=== PATIENT | female | born 1965 | race Caucasian/White ===

== ENCOUNTER 2017-10-26 20:11 | Emergency (ER) | payer MEDICARE ==
[~2017-10-26] VITALS: Ht 157.5 cm; Wt 131.1 kg
[~2017-10-26 20:11] MED LIST: ALB0.5 INH; ALB18R INH; AMO875 PO; AMOX-559 PO; ASPI81TA94 PO; CYC10 PO; CYCL10TA29 PO; DIA5 PO; DULO60CA51 PO; DULO60CA56 PO; ESTR1.2525 PO; FLUT1DIS27 IH; GAB800PT PO; GABA-503 PO; GABA25PO16 MC; GUAI600T57 PO; HYDR-2966 PO; HYDR-4225 PO; KET10 PO; MIRT-1 PO; MIRT-18 PO; ONDA4TAB PO; PRED-1 PO; TOPI15CA18 PO; TRA50 PO; TRAM-420 PO; VENL75CA58 PO; [UNRECOGNIZED DRUG - CODE] PO
--- NOTE | 2017-10-26 20:31 | ER Report ---
History and Physical Time Seen By MD: 20:10 Hx. of Stated Complaint: PT HAS FLU GOING AROUND HOUSE. PT IS SOB. HPI/ROS CHIEF COMPLAINT: Influenza-like illness HISTORY OF PRESENT ILLNESS: 52-year-old female denies past cardiac history presents with chest pain and tenderness productive cough shortness of breath hypoxia and vomiting reports at home that she has multiple influenza B exposures with multiple sick family members no known strep exposure has needed anything in 3 days feels weak and tired and lightheaded unable to drive herself to the hospital. Just starting to get a sore throat. REVIEW OF SYSTEMS: Constitutional: No fever, no chills. Eyes: No discharge. ENT: Copious drainage noted your pain Cardiovascular: No chest pressure or exertional chest pain no palpitations. Respiratory: No wheezing or respiratory distress or difficulty moving air Gastrointestinal: No abdominal pain, no diarrhea Genitourinary: No hematuria. Musculoskeletal: No neck back or extremity pain described Skin: No rashes. Neurological: No no weakness numbness or strokelike symptoms Allergies: Coded Allergies: codeine (Verified Allergy, Severe, ANAPHYLAXIS, 10/26/17) acetaminophen (Verified Allergy, Mild, AIRWAY OBSTRUCTION, 10/26/17) oxycodone (Verified Allergy, Mild, AIRWAY OBSTRUCTION, 10/26/17) Home Meds Active Scripts Ketorolac Tromethamine (KETOROLAC TROMETHAMINE) 10 Mg Tab, 10 MG PO Q6H Y for PAIN, #12 TAB 0 Refills Prov:ALEX MAYA MD 11/25/16 Tramadol Hcl (TRAMADOL HCL) 50 Mg Tablet, 1-2 MG PO Q6H Y for PAIN, #30 TAB Prov:ADAM THRASHER DO 06/22/16 Reported Medications Hydrochlorothiazide (HYDROCHLOROTHIAZIDE) 25 Mg Tablet, 1 TAB PO QDAY, TAB 06/18/17 Venlafaxine Hcl (EFFEXOR XR) 75 Mg Cap.er.24h, 75 MG PO TID 11/25/16 Hydroxyzine Hcl (HYDROXYZINE HCL) 25 Mg Tablet, 25 MG PO QID 11/25/16 Mirtazapine (REMERON) 15 Mg Tablet, 45 MG PO QHS 06/22/16 Gabapentin (GABAPENTIN) 600 Mg Tablet, 600 MG PO TID, #9 MG 0 Refills TAKE ONE CAPSULE BY MOUTH THREE TIMES A DAY 10/05/13 Cyclobenzaprine Hcl (Flexeril) 10 Mg Tab, 10 MG PO BID, 0 Refills 09/29/09 Discontinued Reported Medications Albuterol Sulfate (VENTOLIN HFA) 18 Gm Inh, 1-2 PUFF INH 3-4XD, INH 11/25/16 Fluticasone/Salmeterol (ADVAIR 100-50 DISKUS) 1 Each Disk.w.dev, 1 EACH IH 11/25/16 Topiramate (TOPAMAX) 15 Mg Cap.sprink, 15 MG PO BID 06/22/16 Discontinued Scripts Ketorolac Tromethamine (KETOROLAC TROMETHAMINE) 10 Mg Tab, 10 MG PO Q6H Y for PAIN, #12 TAB 0 Refills Prov:ALEX MAYA MD 06/18/17 Cyclobenzaprine Hcl (CYCLOBENZAPRINE HCL) 10 Mg Tablet, 10 MG PO Q8H Y for MUSCLE SPASMS, #20 TAB 0 Refills Prov:ALEX MAYA MD 06/18/17 Ondansetron (ZOFRAN ODT) 4 Mg Tab.rapdis, 4 MG PO Q6H Y for NAUSEA/VOMITING, # 20 TAB.MALLIKA 0 Refills Prov:ALEX MAYA MD 11/25/16 Hx Smoking: Yes Smoking Status: Current: Every Day Smoker Exposure to Second Hand Smoke?: No Hx Substance Use Disorder: No Hx Alcohol Use: Yes Constitutional Vital Sign - Last 24 Hours 10/26/17 10/26/17 20:17 21:11 Temp 99.3 Pulse 92 78 Resp 20 B/P (MAP) 120/68 Pulse Ox 85 95 O2 Delivery Room Air Medical Decision Making Data Points Result Diagram: 10/26/17210910/26/172109 Laboratory Hematology Test 10/26/17 21:10 10/26/17 21:20 10/26/17 21:25 Red Blood Count 4.76 M/uL (4.17-5.56) Mean Corpuscular Volume 92.4 fL (80.0-96.0) Mean Corpuscular Hemoglobin 31.8 pg (26.0-33.0) Mean Corpuscular Hemoglobin Concent 34.4 g/dL (32.0-36.0) Red Cell Distribution Width 13.5 % (11.5-14.5) Mean Platelet Volume 8.8 fL (7.2-11.1) Neutrophils (%) (Auto) 65.9 % (39.4-72.5) Lymphocytes (%) (Auto) 24.1 % (17.6-49.6) Monocytes (%) (Auto) 9.1 % (4.1-12.4) Eosinophils (%) (Auto) 0.2 % (0.4-6.7) Basophils (%) (Auto) 0.7 % (0.3-1.4) Nucleated RBC Relative Count (auto) 0.0 /100WBC Neutrophils # (Auto) 4.1 K/uL (2.0-7.4) Lymphocytes # (Auto) 1.5 K/uL (1.3-3.6) Monocytes # (Auto) 0.6 K/uL (0.3-1.0) Eosinophils # (Auto) 0.0 K/uL (0.0-0.5) Basophils # (Auto) 0.0 K/uL (0.0-0.1) Nucleated RBC Absolute Count (auto) 0.00 K/uL Sodium Level 137 mmol/L (137-145) Potassium Level 3.8 mmol/L (3.5-5.0) Chloride Level 102 mmol/L (98-107) Carbon Dioxide Level 24 mmol/L (22-31) Blood Urea Nitrogen 9 mg/dl (7-18) Creatinine 0.80 mg/dl (0.52-1.04) Glomerular Filtration Rate Calc > 60.0 Random Glucose 100 mg/dl (75-110) Calcium Level 8.3 mg/dl (8.4-10.2) Total Bilirubin 0.5 mg/dl (0.2-1.3) Aspartate Amino Transf (AST/SGOT) 33 U/L (0-35) Alanine Aminotransferase (ALT/SGPT) 38 U/L (0-56) Alkaline Phosphatase 73 U/L (0-126) Troponin I < 0.012 ng/ml B-Type Natriuretic Peptide 7 pg/ml (0-100) Total Protein 7.3 gm/dl (6.3-8.2) Albumin 3.8 g/dl (3.5-5.0) Lipase 65 U/L (23-300) Influenza Type A Antigen Negative (NEGATIVE) Influenza Type B Antigen Positive (NEGATIVE) Group A Streptococcus Screen Negative (NEGATIVE) Urine Color Felicia Urine Clarity Slightly-cloudy Urine pH 5.0 pH (4.8-9.5) Urine Specific [place] 1.025 Urine Protein Negative mg/dL (NEGATIVE) Urine Glucose (UA) Negative mg/dL (NEGATIVE) Urine Ketones Trace mg/dL (NEGATIVE) Urine Blood Negative (NEGATIVE) Urine Nitrite Negative (NEGATIVE) Urine Bilirubin Negative (NEGATIVE) Urine Urobilinogen 2.0 mg/dL (0.2-1.9) Urine Leukocyte Esterase Negative (NEGATIVE) Urine RBC 1 /HPF (0-2/HPF) Urine WBC 1 /HPF (0-5/HPF) Urine Squamous Epithelial Cells Many /LPF (</=FEW) Urine Bacteria Moderate /HPF (NONE-FEW) Urine Mucus Few /HPF (NONE-FEW) Chemistry Test 10/26/17 21:10 10/26/17 21:20 10/26/17 21:25 White Blood Count 6.2 k/uL (4.5-11.0) Red Blood Count 4.76 M/uL (4.17-5.56) Hemoglobin 15.1 g/dL (12.0-16.0) Hematocrit 44.0 % (34.0-47.0) Mean Corpuscular Volume 92.4 fL (80.0-96.0) Mean Corpuscular Hemoglobin 31.8 pg (26.0-33.0) Mean Corpuscular Hemoglobin Concent 34.4 g/dL (32.0-36.0) Red Cell Distribution Width 13.5 % (11.5-14.5) Platelet Count 139 K/uL (150-450) Mean Platelet Volume 8.8 fL (7.2-11.1) Neutrophils (%) (Auto) 65.9 % (39.4-72.5) Lymphocytes (%) (Auto) 24.1 % (17.6-49.6) Monocytes (%) (Auto) 9.1 % (4.1-12.4) Eosinophils (%) (Auto) 0.2 % (0.4-6.7) Basophils (%) (Auto) 0.7 % (0.3-1.4) Nucleated RBC Relative Count (auto) 0.0 /100WBC Neutrophils # (Auto) 4.1 K/uL (2.0-7.4) Lymphocytes # (Auto) 1.5 K/uL (1.3-3.6) Monocytes # (Auto) 0.6 K/uL (0.3-1.0) Eosinophils # (Auto) 0.0 K/uL (0.0-0.5) Basophils # (Auto) 0.0 K/uL (0.0-0.1) Nucleated RBC Absolute Count (auto) 0.00 K/uL Glomerular Filtration Rate Calc > 60.0 Calcium Level 8.3 mg/dl (8.4-10.2) Total Bilirubin 0.5 mg/dl (0.2-1.3) Aspartate Amino Transf (AST/SGOT) 33 U/L (0-35) Alanine Aminotransferase (ALT/SGPT) 38 U/L (0-56) Alkaline Phosphatase 73 U/L (0-126) Troponin I < 0.012 ng/ml B-Type Natriuretic Peptide 7 pg/ml (0-100) Total Protein 7.3 gm/dl (6.3-8.2) Albumin 3.8 g/dl (3.5-5.0) Lipase 65 U/L (23-300) Influenza Type A Antigen Negative (NEGATIVE) Influenza Type B Antigen Positive (NEGATIVE) Group A Streptococcus Screen Negative (NEGATIVE) Urine Color Felicia Urine Clarity Slightly-cloudy Urine pH 5.0 pH (4.8-9.5) Urine Specific [place] 1.025 Urine Protein Negative mg/dL (NEGATIVE) Urine Glucose (UA) Negative mg/dL (NEGATIVE) Urine Ketones Trace mg/dL (NEGATIVE) Urine Blood Negative (NEGATIVE) Urine Nitrite Negative (NEGATIVE) Urine Bilirubin Negative (NEGATIVE) Urine Urobilinogen 2.0 mg/dL (0.2-1.9) Urine Leukocyte Esterase Negative (NEGATIVE) Urine RBC 1 /HPF (0-2/HPF) Urine WBC 1 /HPF (0-5/HPF) Urine Squamous Epithelial Cells Many /LPF (</=FEW) Urine Bacteria Moderate /HPF (NONE-FEW) Urine Mucus Few /HPF (NONE-FEW) Urinalysis Test 10/26/17 21:25 Urine Color Felicia Urine Clarity Slightly-cloudy Urine pH 5.0 pH (4.8-9.5) Urine Specific [place] 1.025 Urine Protein Negative mg/dL (NEGATIVE) Urine Glucose (UA) Negative mg/dL (NEGATIVE) Urine Ketones Trace mg/dL (NEGATIVE) Urine Blood Negative (NEGATIVE) Urine Nitrite Negative (NEGATIVE) Urine Bilirubin Negative (NEGATIVE) Urine Urobilinogen 2.0 mg/dL (0.2-1.9) Urine Leukocyte Esterase Negative (NEGATIVE) Urine RBC 1 /HPF (0-2/HPF) Urine WBC 1 /HPF (0-5/HPF) Urine Squamous Epithelial Cells Many /LPF (</=FEW) Urine Bacteria Moderate /HPF (NONE-FEW) Urine Mucus Few /HPF (NONE-FEW) EKG/Imaging EKG Interpretation EKG read by me at 8:50 PM Normal sinus rhythm rate of 79 normal AR QRS and QTc intervals no ST or T-wave changes to suggest ischemia or infarction. Overall impression: Normal inter fold roll cutter Interpretation: Normal Sinus Rhythm ED Course/Re-evaluation ED Course Plan of care was discussed and agreed upon given patient's constellation of symptoms will obtain EKG chest x-ray lab work influenza and strep screening in addition to symptomatic control with pain medicine fluids and nausea medicine. 10/26/2017 11:16:35 pm symptoms improved. I discussed the case with Dr. Lassiter who agrees with management and plan for outpatient care. Patient does not require hospitalization at this time. Slight hypoxia should be tolerated well and improved as underlying processes treated. Re-evaluation 10/26/2017 11:16:16 pm Improved borderline hypoxia off oxygen however improves with a few deep breaths. Decision to Disposition Date: Oct 26, 2017 Decision to Disposition Time: 23:17 Depart Departure Latest Vital Signs Vital Signs Date Time Temp Pulse Resp B/P (MAP) Pulse Ox O2 Delivery O2 Flow Rate FiO2 10/26/17 21:11 78 95 10/26/17 20:17 99.3 20 120/68 Room Air Impression: Primary Impression: Influenza B Condition: Improved Disposition: HOME OR SELF-CARE New Scripts Diclofenac Sodium (DICLOFENAC SODIUM) 25 Mg Tablet.dr 25 MG PO TID for 10 Days, TAB Prov: JULIAN RAMIREZ MD 10/26/17 Oseltamivir Phosphate (TAMIFLU) 75 Mg Cap 75 MG PO BID for 5 Days, #10 CAP 0 Refills Prov: JULIAN RAMIREZ MD 10/26/17 Ondansetron (ZOFRAN ODT) 4 Mg Tab.rapdis 4 MG PO Q12H, #20 TAB.MALLIKA Prov: JULIAN RAMIREZ MD 10/26/17 Patient Instructions: H1N1 Influenza (ED) JULIAN RAMIREZ MD Oct 26, 2017 20:31
[2017-10-26] MEDS ORDERED: MORPHINE 4 MG/ML SYR IVP ONE (20:40)
[2017-10-26] MEDS ORDERED: ONDANSETRON 4 MG/2 ML VIAL IVP ONE ×2 (20:40→22:50)
[2017-10-26] MEDS ORDERED: NS(*) 0.9% 1000 ML BAG 1,000 ML IV ONE (20:50)
[2017-10-26 21:22] LABS: PLATELET COUNT, AUTOMATED 139 K/uL (150-450)
--- NOTE | 2017-10-26 22:06 | RADIOLOGY IMAGING REPORT ---
FACILITY: [facility] [place] PATIENT NAME: Yolanda Olivia : 1965 MR: [id number] V: [id number] EXAM DATE: ORDERING PHYSICIAN: JULIAN RAMIREZ TECHNOLOGIST: Location: [facility] [place] Patient: Yolanda Olivia : 1965 Visit/Account:[id number] Date of Sevice: 10/26/2017 CHEST PA AND LAT History: Right-sided pneumonia Comparison 02/10/2016. FINDINGS: Coarse interstitial lung markings similar to previous. No focal consolidation or effusion. No pneumot horax. Cardiac mediastinal contour within normal limits. IMPRESSION: No evidence of acute cardiopulmonary disease. Report Dictated By: Kishor Robbins MD at 10/26/2017 9:57 PM Report E-Signed By: Kishor Robbins MD at 10/26/2017 10:02 PM WSN:[id number]
[2017-10-26] MEDS ORDERED: KETOROLAC 30 MG/ML VIAL IVP ONE (22:50)
[2017-10-26 23:00] VITALS: BP 121/71
[2017-10-26] MEDS ORDERED: OSE75 PO (23:31)
[2017-10-26] MEDS ORDERED: DICL25TA9 PO (23:31)
[2017-10-26] MEDS ORDERED: ONDA4TAB PO (23:31)
--- NOTE | 2017-10-27 02:42 | EKG ---
FACILITY: [facility] PATIENT NAME: WILFREDO IZQUIERDO : [id number] MR: [id number] V: [id number] EXAM DATE: ORDERING PHYSICIAN: JULIAN RAMIREZ TECHNOLOGIST: FREDY Test Reason : ABDOMINAL PAIN Blood Pressure : / mmHG Vent. Rate : 079 BPM Atrial Rate : 079 BPM P-R Int : 114 ms QRS Dur : 082 ms QT Int : 388 ms P-R-T Axes : 057 035 053 degrees QTc Int : 444 ms Normal sinus rhythm Normal ECG When compared with ECG of 25-MAY-2013 05:51, No significant change was found Confirmed by TAWNY FRAUSTO ([id number]) on 10/28/2017 3:02:56 PM Referred By: Confirmed By:TAWNY FRAUSTO
== END 2017-10-26 23:41 | disposition home or self-care (01) ==
LOC: ER 20:27
DX: J11.1 Influenza due to unidentified influenza virus with other respiratory manifestations (principal)
CPT/HCPCS: 71020; 81001; 83690; 83880; 84484; 85025; 87040; 87081; 87502; 87880; 93005; 96361; 96374; 96375; 96376; 99284; J1885; J2270; J2405; J7030; 82040; 82247; 82310; 82374; 82435; 82565; 82947; 84075; 84132; 84155; 84295; 84450; 84460; 84520

== ENCOUNTER 2017-10-30 18:35 | Emergency (ER) | payer MEDICARE ==
[~2017-10-30] VITALS: Ht 157.5 cm; Wt 131.1 kg
[~2017-10-30 18:35] MED LIST changes: +DICL25TA9 PO; +OSE75 PO
--- NOTE | 2017-10-30 18:46 | ER Report ---
History and Physical Time Seen By MD: 18:46 HPI/ROS CHIEF COMPLAINT: can't breath, vomiting HISTORY OF PRESENT ILLNESS: This is a 52 year old female. She was here in the ER on the and diagnosed with influenza. Since then she has been having ongoing problem with feeling short of breath. Worse with laying flat. She has significant post nasal drainage, and this makes here gag, cough and then vomit. She is using Zofran, but not helping with the vomiting. She continues to cough. Ongoing fevers. Taking Robitussin and Alkaseltzer cold without relief. Chest feels tight, worse in substernal left area. Can drink fluids, but cannot eat without throwing up. REVIEW OF SYSTEMS: Constitutional: As above. ENT: Sore throat and congestion. Cardiovascular: As above. Respiratory: As above. Gastrointestinal: Some abdominal muscle pain from coughing so much. Genitourinary: No dysuria or problems urinating. Musculoskeletal: Muscle aches. Skin: No rashes. Allergies: Coded Allergies: codeine (Verified Allergy, Severe, ANAPHYLAXIS, 10/30/17) acetaminophen (Verified Allergy, Mild, AIRWAY OBSTRUCTION, 10/30/17) oxycodone (Verified Allergy, Mild, AIRWAY OBSTRUCTION, 10/30/17) Home Meds Active Scripts Tramadol Hcl (TRAMADOL HCL) 50 Mg Tablet, 50 MG PO Q6H Y for PAIN, #12 TAB 0 Refills Prov:CAS TAPIA MD 10/30/17 Benzonatate 100 Mg Cap (TESSALON PERLE 100 MG CAP) 100 Mg Capsule, 100 MG PO TID Y for COUGH, #15 CAP 0 Refills Prov:CAS TAPIA MD 10/30/17 Diclofenac Sodium (DICLOFENAC SODIUM) 25 Mg Tablet.dr, 25 MG PO TID for 10 Days , TAB Prov:JULIAN RAMIREZ MD 10/26/17 Oseltamivir Phosphate (TAMIFLU) 75 Mg Cap, 75 MG PO BID for 5 Days, #10 CAP 0 Refills Prov:JULIAN RAMIREZ MD 10/26/17 Ondansetron (ZOFRAN ODT) 4 Mg Tab.rapdis, 4 MG PO Q12H, #20 TAB.MALLIKA Prov:JULIAN RAMIREZ MD 10/26/17 Ketorolac Tromethamine (KETOROLAC TROMETHAMINE) 10 Mg Tab, 10 MG PO Q6H Y for PAIN, #12 TAB 0 Refills Prov:CAS TAPIA MD 11/25/16 Reported Medications Hydrochlorothiazide (HYDROCHLOROTHIAZIDE) 25 Mg Tablet, 1 TAB PO QDAY, TAB 06/18/17 Venlafaxine Hcl (EFFEXOR XR) 75 Mg Cap.er.24h, 75 MG PO TID 11/25/16 Hydroxyzine Hcl (HYDROXYZINE HCL) 25 Mg Tablet, 25 MG PO QID 11/25/16 Mirtazapine (REMERON) 15 Mg Tablet, 45 MG PO QHS 06/22/16 Gabapentin (GABAPENTIN) 600 Mg Tablet, 600 MG PO TID, #9 MG 0 Refills TAKE ONE CAPSULE BY MOUTH THREE TIMES A DAY 10/05/13 Cyclobenzaprine Hcl (Flexeril) 10 Mg Tab, 10 MG PO BID, 0 Refills 09/29/09 Discontinued Reported Medications Albuterol Sulfate (VENTOLIN HFA) 18 Gm Inh, 1-2 PUFF INH 3-4XD, INH 11/25/16 Fluticasone/Salmeterol (ADVAIR 100-50 DISKUS) 1 Each Disk.w.dev, 1 EACH IH 11/25/16 Topiramate (TOPAMAX) 15 Mg Cap.sprink, 15 MG PO BID 06/22/16 Discontinued Scripts Tramadol Hcl (TRAMADOL HCL) 50 Mg Tablet, 1-2 MG PO Q6H Y for PAIN, #30 TAB Prov:ADAM THRASHER DO 06/22/16 Ketorolac Tromethamine (KETOROLAC TROMETHAMINE) 10 Mg Tab, 10 MG PO Q6H Y for PAIN, #12 TAB 0 Refills Prov:CAS TAPIA MD 06/18/17 Cyclobenzaprine Hcl (CYCLOBENZAPRINE HCL) 10 Mg Tablet, 10 MG PO Q8H Y for MUSCLE SPASMS, #20 TAB 0 Refills Prov:CAS TAPIA MD 06/18/17 Ondansetron (ZOFRAN ODT) 4 Mg Tab.rapdis, 4 MG PO Q6H Y for NAUSEA/VOMITING, # 20 TAB.MALLIKA 0 Refills Prov:CAS TAPIA MD 11/25/16 Reviewed Nurses Notes: Yes Hx Smoking: Yes Smoking Status: Current: Every Day Smoker Exposure to Second Hand Smoke?: No Hx Substance Use Disorder: No Hx Alcohol Use: Yes Constitutional Vital Sign - Last 24 Hours 10/30/17 10/30/17 10/30/17 10/30/17 18:45 18:45 18:45 18:48 Temp 100.3 Pulse 90 88 Resp 0 22 B/P (MAP) 115/105 (108) 115/105 126/71 (89) Pulse Ox 94 83 O2 Delivery Room Air O2 Flow Rate 2.0 10/30/17 10/30/17 10/30/17 10/30/17 19:00 19:15 19:20 19:20 Pulse 84 78 71 Resp 48 28 16 Pulse Ox 93 92 94 O2 Delivery Nasal Cannula O2 Flow Rate 1.5 10/30/17 10/30/17 10/30/17 10/30/17 19:26 19:30 20:00 20:31 Pulse 73 79 77 Resp 16 24 41 B/P (MAP) 113/53 (73) 111/70 (84) Pulse Ox 89 Physical Exam General Appearance: The patient is alert. Acute distress due to coughing and post-tussive emesis. Non-toxic in appearance. Eyes: Pupils are equal, round. No pallor, injection or icterus. ENT: Mucous membranes are moist. Normal oral mucosa. Posterior oropharynx has significant post-nasal drainage. Significant mucous in the nasal passages. Neck: Supple and non tender. Respiratory: Lungs are clear to auscultation. Cardiovascular: Regular rate and rhythm. No murmurs, gallops or rubs. Normal capillary refill. Gastrointestinal: Abdomen is soft, has some tenderness upper abdomen and ribs from coughing so much. Nondistended. Normal active bowel sounds. No CVA tenderness. Neurological: Alert and oriented x3. DIFFERENTIAL DIAGNOSIS: After history and physical exam, differential diagnosis was considered for cough and trouble breathing, likely from the influenza, but will check for other causes, especially need to look for possible pneumonia. Medical Decision Making Data Points Result Diagram: 10/30/17190510/30/171905 Laboratory Hematology Test 10/30/17 19:06 Red Blood Count 4.45 M/uL (4.17-5.56) Mean Corpuscular Volume 91.2 fL (80.0-96.0) Mean Corpuscular Hemoglobin 31.6 pg (26.0-33.0) Mean Corpuscular Hemoglobin Concent 34.7 g/dL (32.0-36.0) Red Cell Distribution Width 13.3 % (11.5-14.5) Mean Platelet Volume 9.1 fL (7.2-11.1) Neutrophils (%) (Auto) 80.6 % (39.4-72.5) Lymphocytes (%) (Auto) 11.9 % (17.6-49.6) Monocytes (%) (Auto) 6.7 % (4.1-12.4) Eosinophils (%) (Auto) 0.2 % (0.4-6.7) Basophils (%) (Auto) 0.6 % (0.3-1.4) Nucleated RBC Relative Count (auto) 0.1 /100WBC Neutrophils # (Auto) 7.2 K/uL (2.0-7.4) Lymphocytes # (Auto) 1.1 K/uL (1.3-3.6) Monocytes # (Auto) 0.6 K/uL (0.3-1.0) Eosinophils # (Auto) 0.0 K/uL (0.0-0.5) Basophils # (Auto) 0.0 K/uL (0.0-0.1) Nucleated RBC Absolute Count (auto) 0.01 K/uL D-Dimer Quantitative (PE/DVT) 0.49 ug/ml (0-0.50) Sodium Level 139 mmol/L (137-145) Potassium Level 3.8 mmol/L (3.5-5.0) Chloride Level 104 mmol/L (98-107) Carbon Dioxide Level 25 mmol/L (22-31) Blood Urea Nitrogen 6 mg/dl (7-18) Creatinine 0.70 mg/dl (0.52-1.04) Glomerular Filtration Rate Calc > 60.0 Random Glucose 117 mg/dl (75-110) Calcium Level 8.4 mg/dl (8.4-10.2) Total Bilirubin 1.1 mg/dl (0.2-1.3) Aspartate Amino Transf (AST/SGOT) 16 U/L (0-35) Alanine Aminotransferase (ALT/SGPT) 31 U/L (0-56) Alkaline Phosphatase 88 U/L (0-126) Troponin I < 0.012 ng/ml B-Type Natriuretic Peptide 61 pg/ml (0-100) Total Protein 7.1 gm/dl (6.3-8.2) Albumin 3.5 g/dl (3.5-5.0) Chemistry Test 10/30/17 19:06 White Blood Count 8.9 k/uL (4.5-11.0) Red Blood Count 4.45 M/uL (4.17-5.56) Hemoglobin 14.1 g/dL (12.0-16.0) Hematocrit 40.6 % (34.0-47.0) Mean Corpuscular Volume 91.2 fL (80.0-96.0) Mean Corpuscular Hemoglobin 31.6 pg (26.0-33.0) Mean Corpuscular Hemoglobin Concent 34.7 g/dL (32.0-36.0) Red Cell Distribution Width 13.3 % (11.5-14.5) Platelet Count 145 K/uL (150-450) Mean Platelet Volume 9.1 fL (7.2-11.1) Neutrophils (%) (Auto) 80.6 % (39.4-72.5) Lymphocytes (%) (Auto) 11.9 % (17.6-49.6) Monocytes (%) (Auto) 6.7 % (4.1-12.4) Eosinophils (%) (Auto) 0.2 % (0.4-6.7) Basophils (%) (Auto) 0.6 % (0.3-1.4) Nucleated RBC Relative Count (auto) 0.1 /100WBC Neutrophils # (Auto) 7.2 K/uL (2.0-7.4) Lymphocytes # (Auto) 1.1 K/uL (1.3-3.6) Monocytes # (Auto) 0.6 K/uL (0.3-1.0) Eosinophils # (Auto) 0.0 K/uL (0.0-0.5) Basophils # (Auto) 0.0 K/uL (0.0-0.1) Nucleated RBC Absolute Count (auto) 0.01 K/uL D-Dimer Quantitative (PE/DVT) 0.49 ug/ml (0-0.50) Glomerular Filtration Rate Calc > 60.0 Calcium Level 8.4 mg/dl (8.4-10.2) Total Bilirubin 1.1 mg/dl (0.2-1.3) Aspartate Amino Transf (AST/SGOT) 16 U/L (0-35) Alanine Aminotransferase (ALT/SGPT) 31 U/L (0-56) Alkaline Phosphatase 88 U/L (0-126) Troponin I < 0.012 ng/ml B-Type Natriuretic Peptide 61 pg/ml (0-100) Total Protein 7.1 gm/dl (6.3-8.2) Albumin 3.5 g/dl (3.5-5.0) Coagulation Test 10/30/17 19:06 D-Dimer Quantitative (PE/DVT) 0.49 ug/ml EKG/Imaging EKG Interpretation 12 lead EKG: Rhythm: normal sinus rhythm [place]: normal QRS: normal ST segments: normal Imaging EXAMINATION: Chest 2 Views HISTORY: Respiratory distress. COMPARISON: 10/26/2017. FINDINGS: There is mild prominence of the perihilar interstitial markings bilaterally, improved from the prior exam. No focal consolidation or pleural effusion. No pneumothorax. Normal heart size, with stable cardiomediastinal contours. No acute osseous findings. Prior cervical spine surgery with plate and screw fixation. Cholecystectomy clips in the right upper abdomen. IMPRESSION: 1. Mild perihilar interstitial prominence, improved from the prior exam. 2. No focal consolidation. No new or progressive findings in the chest. Report Dictated By: Handy Banegas MD at 10/30/2017 8:01 PM ED Course/Re-evaluation Clinical Indication for ER IV: IV Access ED Course Solu-Medrol 125 mg IV was given, the patient was given a breathing treatment. She was then given Tessalon Perles and some tramadol to help with cough and pain. Imaging was negative for pneumonia. Labs unremarkable other than the influenza. This appears to be worsening symptoms from the influenza. She did have hypoxia requiring oxygen and we did arrange home oxygen. Otherwise she will continue symptomatic management. I did give a prescription for tramadol to help with pain and Tessalon Perles to help with cough. Decision to Disposition Date: Oct 30, 2017 Decision to Disposition Time: 21:08 Depart Departure Latest Vital Signs Vital Signs Date Time Temp Pulse Resp B/P (MAP) Pulse Ox O2 Delivery O2 Flow Rate FiO2 10/30/17 20:31 111/70 (84) 10/30/17 20:00 77 41 10/30/17 19:30 89 1/2/18 19:20 Nasal Cannula 1.5 10/30/17 18:45 100.3 Impression: Primary Impression: Influenza B Additional Impression: Hypoxia Condition: Improved Disposition: HOME OR SELF-CARE New Scripts Tramadol Hcl (TRAMADOL HCL) 50 Mg Tablet 50 MG PO Q6H Y for PAIN, #12 TAB 0 Refills Prov: CAS TAPIA MD 10/30/17 Benzonatate 100 Mg Cap (TESSALON PERLE 100 MG CAP) 100 Mg Capsule 100 MG PO TID Y for COUGH, #15 CAP 0 Refills Prov: CAS TAPIA MD 10/30/17 Departure Forms: Home Oxygen, Nebulizer RX Durable Medical Equipment- Oxygen: Oxygen Concentrator, Portable Oxygen Gas Reason for Use/Diagnosis: Influenza B, Hypoxia Start Date of the Order: Oct 30, 2017 Dosage or Concentration (if applicable) - LPM: 2 Route of Administration (if applicable): Nasal Cannula Frequency of Use: Continuous Duration Home O2 Required: 1 Duration Units: Months Room Air Oxygen Saturation: 83 ER Prescribing Physician's Name: Cas Tapia NPI Numbers for Local ER MDs: Willie [id number] Patient Instructions: Hypoxia (ED), Influenza (ED) Additional Instructions: Take Tessalon Perles 100mg, three times a day as needed for cough. Take Tramadol 50mg, one every 6 hours as needed for pain. Oxygen 2liters nasal canula Problem Qualifiers CAS TAPIA MD Oct 30, 2017 18:46
[2017-10-30] MEDS ORDERED: methylPREDNIS SUCC 125 MG/2ML IVP ONE (18:55)
[2017-10-30] MEDS ORDERED: ALBUTEROL/IPRATROPIUM 3 ML NEB NEB ONE (18:55)
[2017-10-30 19:17] LABS: PLATELET COUNT, AUTOMATED 145 K/uL (150-450)
--- NOTE | 2017-10-30 19:18 | EKG ---
FACILITY: [facility] PATIENT NAME: WILFREDO IZQUIERDO : [id number] MR: [id number] V: [id number] EXAM DATE: ORDERING PHYSICIAN: ALEX MAYA TECHNOLOGIST: Test Reason : Blood Pressure : / mmHG Vent. Rate : 083 BPM Atrial Rate : 083 BPM P-R Int : 116 ms QRS Dur : 082 ms QT Int : 374 ms P-R-T Axes : 035 018 038 degrees QTc Int : 439 ms Normal sinus rhythm Normal ECG When compared with ECG of 26-OCT-2017 20:48, No significant change was found Confirmed by YON BURLESON ([id number]) on 10/31/2017 2:01:20 AM Referred By: Confirmed By:YON BURLESON
[2017-10-30] MEDS ORDERED: traMADol 50 MG TAB PO ONE (19:20)
[2017-10-30] MEDS ORDERED: BENZONATATE 100 MG CAP PO ONE (19:20)
--- NOTE | 2017-10-30 20:05 | RADIOLOGY IMAGING REPORT ---
FACILITY: [facility] [place] PATIENT NAME: Yolanda Olivia : 1965 MR: [id number] V: [id number] EXAM DATE: ORDERING PHYSICIAN: ALEX MAYA TECHNOLOGIST: Location: [facility] Patient: Yolanda Olivia : 1965 Visit/Account:[id number] Date of Sevice: 10/30/2017 EXAMINATION: Chest 2 Views HISTORY: Respiratory distress. COMPARISON: 10/26/2017. FINDINGS: There is mild prominence of the perihilar interstitial markings bilaterally, improved from the prior exam. No focal consolidation or pleural effusion. No pneumothorax. Normal heart size, with stable cardiomediastinal contours. No acute osseous findings. Prior cervical spine surgery with plate and screw fixation. Cholecystectom y clips in the right upper abdomen. IMPRESSION: 1. Mild perihilar interstitial prominence, improved from the prior exam. 2. No focal consolidation. No new or progressive findings in the chest. Report Dictated By: Handy Banegas MD at 10/30/2017 8:01 PM Report E-Signed By: Handy Banegas MD at 10/30/2017 8:02 PM WSN:[id number]
[2017-10-30] MEDS ORDERED: BENZONATATE 100 MG CAP ONE (20:31)
[2017-10-30] MEDS ORDERED: BENZ100C4 PO (21:10)
[2017-10-30] MEDS ORDERED: TRAM-420 PO (21:10)
[2017-10-30 21:30] VITALS: BP 118/68
== END 2017-10-30 21:44 | disposition home or self-care (01) ==
LOC: ER 19:18
DX: J11.1 Influenza due to unidentified influenza virus with other respiratory manifestations (principal); R09.02 Hypoxemia
CPT/HCPCS: 36415; 71046; 83880; 84484; 85025; 85379; 87040; 93005; 94640; 96374; 99284; A9270; J2930; J7620; 82040; 82247; 82310; 82374; 82435; 82565; 82947; 84075; 84132; 84155; 84295; 84450; 84460; 84520

== ENCOUNTER → 2017-12-24 | Outpatient (CLI) | payer MEDICARE, MEDICAID ==
[~2017-12-24] MED LIST changes: +BENZ100C4 PO
--- NOTE | 2017-12-24 14:07 | RADIOLOGY IMAGING REPORT ---
FACILITY: [facility] PATIENT NAME: Yolanda Olivia : 1965 MR: [id number] V: [id number] EXAM DATE: ORDERING PHYSICIAN: OC PEREZ TECHNOLOGIST: Location: [facility] - [place] Patient: Yolanda Olivia : 1965 Visit/Account:[id number] Date of Sevice: 12/24/2017 Study: MRI lumbar spine without gadolinium contrast. Indication:Low back pain Comparison study: CT scan dated June 18, 2017 Technique:Multiplanar MRI sequences were obtained through the lumbar spine without the use of gadolin ium contrast. Findings: Examination demonstrates presence of a grade I anterolisthesis at the L3-4 level. This is u nchanged from the previous study. The conus medullaris is located posterior to the T12/L1 disc space level. There is no evidence of abnormality of the lumbar nerve roots. Disc spaces: L1/2:At this level, there is no significant disc pathology. There is no significant neural foraminal stenosis or spinal stenosis. L2/3:At this level, there is no significant disc pathology. There is no significant neural foraminal stenosis or spinal stenosis. L3/4: At this level, there is a grade I anterolisthesis. There is a diffuse disc bulge. There is face t and ligamentous hypertrophy. There is no significant spinal stenosis or neural foraminal stenosis n oted. L4/5: At this level, there is a minimal diffuse disc bulge. There is facet and ligamentous hypertroph y. There is no significant neural foraminal stenosis or spinal stenosis. L5/S1: At this level, there is a minimal diffuse disc bulge. There is facet and ligamentous hypertrop hy. There is no significant spinal stenosis. There is mild bilateral neural foraminal stenosis. IMPRESSION: Mild multilevel lumbar disc pathology and spondylopathy present as described. There is a grade I anterolisthesis at the L3-4 level. Please see the body of the report for description of individual disc levels. Report Dictated By: Richy Kovacs at 12/24/2017 1:45 PM Report E-Signed By: Richy Kovacs at 12/24/2017 2:03 PM WSN:[id number]
== END ==
LOC: MRI 07:29
PROVIDERS: ATTEND Family Medicine
DX: M48.16 Ankylosing hyperostosis [Forestier], lumbar region (principal); M43.16 Spondylolisthesis, lumbar region
CPT/HCPCS: 72148

== ENCOUNTER → 2017-12-26 | Outpatient (CLI) | payer MEDICARE, MEDICAID ==
--- NOTE | 2017-12-27 10:27 | RADIOLOGY IMAGING REPORT ---
FACILITY: [facility] - [place] PATIENT NAME: WILFREDO IZQUIERDO : [id number] MR: [id number] V: [id number] EXAM DATE: [id number] ORDERING PHYSICIAN: OC PEREZ TECHNOLOGIST: Melody Rivero PROCEDURE:BILATERAL DIAGNOSTIC DIGITAL MAMMOGRAM WITH CAD ASSISTED INTERPRETATION & 3D TOMOSYNTHESIS COMPARISON:Prior mammograms 04/16/17. INDICATIONS:6 MO F/U FINDINGS: There is predominate fatty replacement seen throughout the breasts. The parenchymal pattern has remained stable allowing for difference in mammographic technique & patient positioning. The ovoid nodular density in the upper outer quadrant of the Right breast has remained stable. Today's limited Right breast Ultrasound revealed several tiny cysts although no correlate for this nodular density. Due to the stability a 6 month follow-up Right mammogram is recommended unless clinical findings warrant more immediate attention. DIAGNOSTIC CATEGORY 3--PROBABLY BENIGN FINDING. RECOMMENDATIONS: SIX MONTH FOLLOW-UP DIAGNOSTIC MAMMOGRAM: RIGHT BREAST. IMPRESSION: BIRADS 3: Probably benign finding A 6 month follow-up Right mammogram is recommended as detailed above Dictated by: Merced Sexton M.D. on 12/26/2017 at 15:07 Transcribed by: SADE on 12/27/2017 at 8:47 Approved by: Merced Sexton M.D. on 12/27/2017 at 10:26 [facility]
--- NOTE | 2017-12-27 10:27 | RADIOLOGY IMAGING REPORT ---
FACILITY: [facility] PATIENT NAME: WILFREDO IZQUIERDO : [id number] MR: [id number] V: [id number] EXAM DATE: [id number] ORDERING PHYSICIAN: OC PEREZ TECHNOLOGIST: Gregorio Castano PROCEDURE:US RIGHT BREAST COMPARISON:None. INDICATIONS:6 MO F/U FINDINGS: There is a tiny 3mm cyst in the 9 o'clock position of the Right breast. This likely does not account for the ovoid nodule seen in the upper outer quadrant on the recent mammogram therefore a 6 month follow-up Right mammogram is recommended unless clinical findings warrant more immediate attention. DIAGNOSTIC CATEGORY 3--PROBABLY BENIGN FINDING. RECOMMENDATIONS: SIX MONTH FOLLOW-UP DIAGNOSTIC MAMMOGRAM: RIGHT BREAST. IMPRESSION: BIRADS 3: Probably benign finding A 6 month follow-up Right mammogram is recommended as detailed above Dictated by: Merced Sexton M.D. on 12/26/2017 at 15:07 Transcribed by: SADE on 12/27/2017 at 8:46 Approved by: Merced Sexton M.D. on 12/27/2017 at 10:26 [facility]
== END ==
LOC: RESP 02:21
PROVIDERS: ATTEND Family Medicine
DX: N60.01 Solitary cyst of right breast (principal); N63.11 Unspecified lump in the right breast, upper outer quadrant
CPT/HCPCS: 77062; 77066

== ENCOUNTER → 2017-12-27 | Outpatient (CLI) | payer MEDICARE | LOC: RESP 20:27 | PROVIDERS: ATTEND Family Medicine | DX: G47.33 Obstructive sleep apnea (adult) (pediatric) (principal); G47.61 Periodic limb movement disorder; G47.36 Sleep related hypoventilation in conditions classified elsewhere; E66.8 Other obesity ==

== ENCOUNTER 2018-01-14 09:31 | Outpatient (RCR) | payer MEDICARE, MEDICAID ==
[~2018-01-14] VITALS: Ht 157.5 cm; Wt 126.6 kg
--- NOTE | 2018-01-15 13:06 | Medical Nutrition Therapy ---
Nutrition Anthropometrics Height (Inches): 62 (stated) Weight (Pounds): 279 (279.5 on standing scale) Kirk Nutrition Score: Kirk Nutrition Risk Score: Dietary Referral Nutrition Risk Factors: Nutrition Risk Comment: Physical Findings Physical Appearance: Morbidly Obese 40+ (BMI 51) Skin Appearance Skin Appearance: Edema Edema Location Modifier: Edema Location: Type of Edema: Degree of Edema: Gastrointestinal Symptoms GI Symtoms: Tube Present: Bowel Sounds: Recent Bowel Pattern: Stool Characteristics: Nutrition/Food History Breakfast: coffee with cream, 1 sl toast, dionicio Lunch: cheese sandwich, diet soda Dinner: 1c spagetti & 2 meatbasll, 1/2 sl garlic toast, diet soda Snacks: 9saltine or ritz crakers ( with meds) Nutritional Education Nutrition Education Topic: Weight Loss Diet Learning Readiness: Interested Teaching Methods: Discussion, Handout, Demonstration Response to Teaching: Verbalize understanding, Reinforcement needed Teaching Recipient: Patient Nutrition Counseling: Late entry of 01/14: Pt has hx of gastic bypass surgery but has gained back 90#. Pt is considering re-doing bypass surgery but would like to start wt loss process. Pt has significant family hx of diabetes and current A1C of 5.6 which is on upper end of normal range. Pt reports hx of phychiatic problems and suicide attempts. Referral was made to [facility] and tech did talk with pt. [facility] tech stated pt was safe at this time. Pt is in counseling. Pt is on psych med that can contribute to wt gain. Recommend pt discuss meds with PCP to see if another med that doesn't contribut to wt gain may help her. 24 hr recall indicated pt ate ~ 1500 kcal on that day. This shoudl be a weight loss level for pt. However pt may have not reported all food intake or this may not be typical day. Recommend pt track food to see how many kcal she is consuming. Pt will use [employer]. Provided meal plan of ~ 1200 kcal. Discussed how larger portions may be playing a role. Recommend pt measure food to ensure she is documenting correct amounts. Recommend pt changed to lower kcal bread. Discussed glycemic index and encouraged higher fiber CHO. REcommend limiting CHO and bedtime and add high protein snack like belizean yogurt. Pt has financial restictions so discussed how to add lower cost and lower kcal high protein foods. Discussed exercise. Pt suraj has pain in back and can do limited exercises. Pt is disabled. Recommend swimming. [facility] if [facility] have a discount for disabled. Pt will f/u 2 weeks for weigh-in only and monthly for further MNT. Copies To Copies to: OC PEREZ MD, BETH Jan 15, 2018 13:06
[2018-01-28] MEDS ORDERED: GOLYTE PO (10:09)
[2018-01-28] MEDS ORDERED: FLUT1DIS27 IH (12:59)
[2018-01-28] MEDS ORDERED: HYDR-2966 PO (12:59)
[2018-01-28] MEDS ORDERED: ASPI-1471 PO (12:59)
[2018-01-28] MEDS ORDERED: OMEP40CA48 PO (12:59)
[2018-01-28] MEDS ORDERED: SIMV10TA96 PO (12:59)
[2018-01-28] MEDS ORDERED: ALBU8.5H IH (12:59)
[2018-01-29] MEDS ORDERED: LAMO25TB2 PO (08:21)
[2018-01-29] MEDS ORDERED: LOR5/325 PO (08:21)
[2018-01-29] MEDS ORDERED: ONDA4TAB97 PO (08:22)
== END 2018-02-18 ==
LOC: DIET 09:31
PROVIDERS: ATTEND Family Medicine
DX: Z71.3 Dietary counseling and surveillance (principal); R73.9 Hyperglycemia, unspecified; E53.8 Deficiency of other specified B group vitamins; Z68.43 Body mass index [BMI] 50.0-59.9, adult; Z98.84 Bariatric surgery status
CPT/HCPCS: 97802

== ENCOUNTER → 2018-01-17 | Outpatient (CLI) | payer MEDICARE, MEDICAID ==
[~2018-01-17] MED LIST changes: +ALBU8.5H IH; +ASPI-1471 PO; +GOLYTE PO; +LAMO25TB2 PO; +LOR5/325 PO; +OMEP40CA48 PO; +ONDA4TAB97 PO; +SIMV10TA96 PO
== END ==
LOC: RESP 19:38
PROVIDERS: ATTEND Family Medicine
DX: G47.33 Obstructive sleep apnea (adult) (pediatric) (principal); G47.36 Sleep related hypoventilation in conditions classified elsewhere; E66.9 Obesity, unspecified

== ENCOUNTER 2018-01-30 00:32 | Day surgery (SDC) | payer MEDICARE ==
[2018-01-30] VITALS (7 sets, daily range): BP systolic 106–139; BP diastolic 68–85
[~2018-01-30] VITALS: Ht 157.5 cm; Wt 126.1 kg
[2018-01-30] MEDS ORDERED: LIDOCAINE MPF 1% 5 ML VIAL ONE (08:52)
[2018-01-30] MEDS ORDERED: PROPOFOL EMUL(*) 10MG/ML 20 ML 40 ML ONE (08:52)
[2018-01-30] MEDS ORDERED: LIDOCAINE/SOD BICARB 8.4% SYR ID ONE (09:40)
[2018-01-30] MEDS ORDERED: NORMOSOL R SOLN(*) 1000 ML BAG 1,000 ML IV PRN (09:40)
[2018-01-30] MEDS ORDERED: ALBUTEROL/IPRATROPIUM 3 ML NEB ONE (11:01)
--- NOTE | 2018-01-30 11:11 | Short(Outpt) Discharge Summary ---
Discharge Summary Reason for Hosp/Final Diag: (1) Family hx of colon cancer Hospital Course & Plan: EGD and colonoscopy with biopsies completed without problems. (2) Diarrhea Status: Chronic Departure Discharge to: Home, Self Care Discharge Instructions Home Meds Active Scripts Peg/Electrolytes (GOLYTELY SOLUTION) 4,000 Ml Soln, 1 GAL PO ONCE, #1 GAL 0 Refills Prov:TAWNY HUMPHRIES MD 01/28/18 Reported Medications Ondansetron Hcl (ZOFRAN) 4 Mg Tablet, 8 MG PO QHS, TAB 01/29/18 Hydrocodone Bit/Acetaminophen (HYDROCODON-ACETAMINOPHEN 5-325) 1 Each Tablet, 2 EACH PO QHS, TAB 01/29/18 Lamotrigine (LAMICTAL) 25 Mg Tb.chw.dsp, 50 MG PO HS 01/29/18 Omeprazole (OMEPRAZOLE) 40 Mg Capsule.dr, 40 MG PO QDAY, CAP 01/28/18 Albuterol Sulfate 90 Mcg/Act (PROAIR HFA 90 MCG/ACT) 8.5 Gm Hfa.aer.ad, 2 PUFF IH QID, INHALER 01/28/18 Hydrochlorothiazide (HYDROCHLOROTHIAZIDE) 25 Mg Tablet, 1 TAB PO QDAY, TAB 01/28/18 Simvastatin (ZOCOR) 10 Mg Tablet, 10 MG PO HS, TAB 01/28/18 Fluticasone/Salmeterol (ADVAIR 100-50 DISKUS) 1 Each Disk.w.dev, 1 EACH IH BID 01/28/18 Aspirin (ASPIR 81) 81 Mg Tablet.dr, 81 MG PO QDAY, TAB 01/28/18 Venlafaxine Hcl (EFFEXOR XR) 75 Mg Cap.er.24h, 75 MG PO BID Take 2 caps in AM and 1 cap at HS 11/25/16 Hydroxyzine Hcl (HYDROXYZINE HCL) 25 Mg Tablet, 2 TAB PO QID 11/25/16 Gabapentin (GABAPENTIN) 600 Mg Tablet, 600 MG PO QID, #9 MG 0 Refills TAKE ONE CAPSULE BY MOUTH THREE TIMES A DAY 10/05/13 Cyclobenzaprine Hcl (Flexeril) 10 Mg Tab, 10 MG PO BID, 0 Refills 09/29/09 Discontinued Reported Medications Hydrochlorothiazide (HYDROCHLOROTHIAZIDE) 25 Mg Tablet, 1 TAB PO QDAY, TAB 8/21/17 Mirtazapine (REMERON) 15 Mg Tablet, 45 MG PO QHS 06/22/16 Discontinued Scripts Tramadol Hcl (TRAMADOL HCL) 50 Mg Tablet, 50 MG PO Q6H Y for PAIN, #12 TAB 0 Refills Prov:ALEX MAYA MD 10/30/17 Benzonatate 100 Mg Cap (TESSALON PERLE 100 MG CAP) 100 Mg Capsule, 100 MG PO TID Y for COUGH, #15 CAP 0 Refills Prov:ALEX MAYA MD 10/30/17 Diclofenac Sodium (DICLOFENAC SODIUM) 25 Mg Tablet.dr, 25 MG PO TID for 10 Days , TAB Prov:JULIAN RAMIREZ MD 10/26/17 Oseltamivir Phosphate (TAMIFLU) 75 Mg Cap, 75 MG PO BID for 5 Days, #10 CAP 0 Refills Prov:JULIAN RAMRIEZ MD 10/26/17 Ondansetron (ZOFRAN ODT) 4 Mg Tab.rapdis, 4 MG PO Q12H, #20 TAB.MALLIKA Prov:JULIAN RAMIREZ MD 10/26/17 Ketorolac Tromethamine (KETOROLAC TROMETHAMINE) 10 Mg Tab, 10 MG PO Q6H Y for PAIN, #12 TAB 0 Refills Prov:ALEX MAYA MD 11/25/16 Follow up Referrals: General Surgery - 02/26/18 @ Surgery, General with Tawny Humphries Md You have a follow up appointment scheduled with Dr. Humphries on 02/26/18, at 11:30am. Diet: Regular Activity: As Tolerated Special Instructions: Your upper endoscopy and colonoscopy were completed without problems and your prep was excellent (Good Job!!). I didn't find any problems evidence of cancer or inflammation and there were no colon polyps. You will need a colonoscopy every 5 years until you're 80 years old (health permitting) due to your family history and so I recommend that your next colonoscopy be in 5 years. I will see you back in my office to discuss your diarrhea and biopsy results. I have scheduled an appointment for you on 02/26/18. Problem Qualifiers (1) Diarrhea: Diarrhea type: unspecified type Qualified Codes: R19.7 - Diarrhea, unspecified TAWNY HUMPHRIES MD Jan 30, 2018 11:11
== END 2018-01-30 12:40 | disposition home or self-care (01) ==
LOC: OR 00:32
PROVIDERS: ATTEND Surgery
DX: R19.7 Diarrhea, unspecified (principal); K21.9 Gastro-esophageal reflux disease without esophagitis
CPT/HCPCS: 00811; 43235; 45380; 88305; J2001; J2704; J7620

== ENCOUNTER → 2018-02-05 | Outpatient (CLI) | payer MEDICARE | LOC: LAB 10:02 | PROVIDERS: ATTEND Surgery | DX: R19.7 Diarrhea, unspecified (principal) | CPT/HCPCS: 83630 ==

== ENCOUNTER → 2018-03-14 | Outpatient (CLI) | payer MEDICARE, MEDICAID ==
[~2018-03-14] MED LIST changes: +FURO40TA35 PO; +METF-411 PO
--- NOTE | 2018-03-14 08:54 | RADIOLOGY IMAGING REPORT ---
FACILITY: [facility] - [place], [place] PATIENT NAME: Yolanda Olivia : 1965 MR: [id number] V: [id number] EXAM DATE: ORDERING PHYSICIAN: OC PEREZ TECHNOLOGIST: Location: [facility] - [place] Patient: Yolanda Olivia : 1965 Visit/Account:[id number] Date of Sevice: 03/14/2018 2 VIEWS CHEST INDICATION: Preop COMPARISON: October 30, 2017 FINDINGS: Heart size within normal limits. There is no focal infiltrate or lobar consolidation. Mild chronic interstitial changes. There is no pneumothorax or pleural effusion. Degenerative changes within the thoracic spine. Note is made of cervical fusion hardware. IMPRESSION: 1. No acute cardiopulmonary process. Report Dictated By: Gregory Abdi MD at 03/14/2018 8:48 AM Report E-Signed By: Gregory Abdi MD at 03/14/2018 8:49 AM WSN:[id number]
--- NOTE | 2018-03-14 09:41 | EKG ---
FACILITY: [facility] PATIENT NAME: WILFREDO IZQUIERDO : [id number] MR: [id number] V: [id number] EXAM DATE: ORDERING PHYSICIAN: JEANNETTE HILL TECHNOLOGIST: JOHNNIE Keen Reason : PREOP-KNEE Blood Pressure : / mmHG Vent. Rate : 067 BPM Atrial Rate : 067 BPM P-R Int : 124 ms QRS Dur : 090 ms QT Int : 398 ms P-R-T Axes : 056 049 053 degrees QTc Int : 420 ms Normal sinus rhythm Normal ECG No previous ECGs available Confirmed by YON BURLESON ([id number]) on 03/14/2018 3:04:39 PM Referred By: CHRIS Confirmed By:YON BURLESON
== END ==
LOC: RAD 08:20
PROVIDERS: ATTEND Orthopaedic Surgery
DX: Z01.812 Encounter for preprocedural laboratory examination (principal); Z01.818 Encounter for other preprocedural examination; Z01.810 Encounter for preprocedural cardiovascular examination; S83.241A Other tear of medial meniscus, current injury, right knee, initial encounter; E11.9 Type 2 diabetes mellitus without complications; K21.9 Gastro-esophageal reflux disease without esophagitis; G47.33 Obstructive sleep apnea (adult) (pediatric); F32.9 Major depressive disorder, single episode, unspecified; J45.909 Unspecified asthma, uncomplicated; F17.210 Nicotine dependence, cigarettes, uncomplicated; E78.5 Hyperlipidemia, unspecified; Z68.43 Body mass index [BMI] 50.0-59.9, adult; Z86.718 Personal history of other venous thrombosis and embolism; R60.0 Localized edema; Z98.84 Bariatric surgery status; Z82.49 Family history of ischemic heart disease and other diseases of the circulatory system
CPT/HCPCS: 36415; 71046; 81001; 82040; 82247; 82310; 82374; 82435; 82565; 82947; 83036; 84075; 84132; 84155; 84295; 84450; 84460; 84520; 93005

== ENCOUNTER 2018-03-22 09:31 | Emergency (ER) | payer MEDICARE, MEDICAID ==
[~2018-03-22] VITALS: Ht 157.5 cm; Wt 126.1 kg
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
[2018-03-22] MEDS ORDERED: diphenhydrAMINE 50 MG/ML VIAL IVP ONE (09:55)
[2018-03-22] MEDS ORDERED: METOCLOPRAMIDE 10 MG/2 ML SDV IVP ONE (09:55)
[2018-03-22] MEDS ORDERED: MORPHINE 10 MG/ML SYR IVP ONE (09:55)
[2018-03-22 10:20] LABS: PLATELET COUNT, AUTOMATED 236 K/uL (150-450)
--- NOTE | 2018-03-22 11:10 | RADIOLOGY IMAGING REPORT ---
FACILITY: [facility] [place] PATIENT NAME: Yolanda Olivia : 1965 MR: [id number] V: [id number] EXAM DATE: ORDERING PHYSICIAN: FABRIZIO RAMEY TECHNOLOGIST: Location: [facility] Patient: Yolanda Olivia : 1965 Visit/Account:[id number] Date of Sevice: 03/22/2018 Study: CT scan of the brain without intravenous contrast. Indication: Headache Comparison study: June 18, 2017 Technique: Multiple axial images were obtained through the brain without the use of intravenous contr ast. One of the following dose optimization techniques was utilized in the performance of this exam: Autom ated exposure control; adjustment of the mA and/or kV according to the patient's size; or use of an i terative reconstruction technique. Specific details can be referenced in the facility's radiology C T exam operational policy. The examination demonstrates no evidence of acute intracranial hemorrhage. There is no evidence of ex tra-axial collection or hydrocephalus. There is no abnormal density identified within the brain parenchyma. There is no evidence of disruption of the peripheral townsend-white junction. The bony structures are unremarkable. IMPRESSION:Unremarkable CT scan of the brain without contrast. Report Dictated By: Richy Kovacs at 03/22/2018 11:05 AM Report E-Signed By: Richy Kovacs at 03/22/2018 11:06 AM WSN:[id number]
[2018-03-22] MEDS ORDERED: LIDOCAINE 1%MDV(*)200 MG/20 ML 1 ML ONE (12:40)
[2018-03-22] MEDS ORDERED: ONDANSETRON 4 MG/2 ML VIAL ONE (12:48)
[2018-03-22] MEDS ORDERED: NS(*) 0.9% 1000 ML BAG 1,000 ML IV ONE (13:20)
[2018-03-22 14:30] VITALS: BP 151/79
--- NOTE | 2018-03-22 15:14 | Blood Patch Procedure Note ---
History of Present Illness Diagnosis: Post Dural Puncture MENDOZA Anesthesia Start Date: March 22, 2018 Anesthesia Start Time: 12:45 Vital Signs: Vital Signs Date Time Temp Pulse Resp B/P (MAP) Pulse Ox O2 Delivery O2 Flow Rate FiO2 03/22/18 13:37 58 92 03/22/18 13:35 157/87 (110) 03/22/18 09:45 98.6 16 Room Air Pain Ratin Result Diagram: 03/22/18 1007 03/22/18 1007 Height (Feet): 5 Height (Inches): 2 Weight (Pounds): 278 Past Medical History Medical History: diabetes, obesity Hx Anesthesia Reactions: No Hx Family Anesthesia Reaction: No Home Meds Reported Medications Metformin Hcl (METFORMIN HCL) Unknown Strength Tablet, PO BID, TAB 02/26/18 Furosemide (LASIX) 40 Mg Tablet, 1 TAB PO QDAY, TAB 02/26/18 Ondansetron Hcl (ZOFRAN) 4 Mg Tablet, 8 MG PO QHS, TAB 01/29/18 Lamotrigine (LAMICTAL) 25 Mg Tb.chw.dsp, 50 MG PO HS 01/29/18 Omeprazole (OMEPRAZOLE) 40 Mg Capsule.dr, 40 MG PO QDAY, CAP 01/28/18 Albuterol Sulfate 90 Mcg/Act (PROAIR HFA 90 MCG/ACT) 8.5 Gm Hfa.aer.ad, 2 PUFF IH QID, INHALER 01/28/18 Simvastatin (ZOCOR) 10 Mg Tablet, 10 MG PO HS, TAB 01/28/18 Fluticasone/Salmeterol (ADVAIR 100-50 DISKUS) 1 Each Disk.w.dev, 1 EACH IH BID 01/28/18 Aspirin (ASPIR 81) 81 Mg Tablet.dr, 81 MG PO QDAY, TAB 01/28/18 Venlafaxine Hcl (EFFEXOR XR) 75 Mg Cap.er.24h, 75 MG PO BID Take 2 caps in AM and 1 cap at HS 11/25/16 Hydroxyzine Hcl (HYDROXYZINE HCL) 25 Mg Tablet, 2 TAB PO QID 11/25/16 Gabapentin (GABAPENTIN) 600 Mg Tablet, 1 TAB PO QID, #9 MG 0 Refills TAKE ONE CAPSULE BY MOUTH THREE TIMES A DAY 10/05/13 Discontinued Reported Medications Hydrocodone Bit/Acetaminophen (HYDROCODON-ACETAMINOPHEN 5-325) 1 Each Tablet, 2 EACH PO QHS, TAB 01/29/18 Hydrochlorothiazide (HYDROCHLOROTHIAZIDE) 25 Mg Tablet, 1 TAB PO QDAY, TAB 01/28/18 Allergies: Coded Allergies: codeine (Verified Allergy, Severe, ANAPHYLAXIS, 03/22/18) oxycodone (Verified Allergy, Mild, AIRWAY OBSTRUCTION, 03/22/18) Anesthesia OB ROS Neurological: neuropathy, other (Had steroid injection last Sun. Headache started 3 hrs later.) Eyes ROS: other (glasses) ENT: Denies Tooth caps, Denies Loose teeth, Denies Chipped teeth, Denies Dentures, Denies Bridges, Denies Retainers, Denies Veneers, Denies Implants, Denies Tongue ring Pulmonary: asthma, No smoker (pks/day/yrs), other (seere sleep apnea, UPP planned) GI ROS: clear liquids, nausea, vomiting Endocrine ROS: diabetes (takes etforan), No gestational diabetes, No thyroid disorder, No other Musculoskeletal ROS: low back pain, other (States she "broke my neck") ASA Classification: 3, E Assessment and Plan Anesthesia Plan: Blood Patch Anesthesia Stop Day: March 22, 2018 Anesthesia Stop Time: 13:45 Anesthesia Comment: Pt. observed after 1 hr post blood patch. She states her headache is much improved as well as her eyesight,"not seeing spots anymore" Instructed: No heavy lifting or straining for 5 days as well as moderate activity level. Encouraged to rest as much as possible. Anesthesia Blood Patch Note Anesthesia Blood Patch Note Anesthesia Positioning: Patient Sitting Anesthesia Prep: Chlorhexidine Interspace: L 3-4 (Unable to feel any bony landmarks) Amount Local - cc's: 2 Anesthesia Needle: 17g Touhy/Schliff Anesthesia Attempts: 1 Loss of Resistance: Air Depth of LOS (cm): 7 Cerebral Spinal Fluid: No Blood Draw for Blood Patch by: Sterile Technique, 18g Cathalon, Right Antecubital Blood Drawn by (RN): Ritesh Matthews RN Amount Drawn: 20 Amount Injected: 15 Post Procedure Position: Supine X 30 minutes (for 60 minutes), Then HOB inc over 30 min Blood Patch Dressing: Other (gauze) Anesthesia Tray: Lot Number ([id number]), Expiration Date (2018-08-28), Reference Number ([id number]) Comment: Thoroughly explained to pt. the benefits as well as the risks of an Epidural Blood Patch. Pt. states she has "suffered long enough. Pt. was also told of possible inability to obtain the epidural space. Pt. was instructed that procedure would be aborted of any problems were encountered. She is agreeable to continue. Unable to feel any normal landmarks. Attempt x1 with redirecting to finally obtain epidural space with moderate SHANNAN. Needle hub to skin and indented 3+ inches. RN then aspirated a 10 ml of pt's blood., handing it to CHILD LIFE ASSISTANT. Blood was slowly injected with pt. not noticing anything. 2nd 10ml syringe of pt's blood then obtained, pt. noted "pressure" after 5 ml injected (15ml total). Epidural needle removed and 4x4 gauze placed at puncture site. Pt. assisted to supine with pillow under head and knees. Pt. tolerated procedure exceptionally well. AMANDA DUENAS CHILD LIFE ASSISTANT March 22, 2018 15:14
== END 2018-03-22 15:45 | disposition home or self-care (01) ==
LOC: ER 09:35
DX: R51 Headache (principal)
CPT/HCPCS: 36415; 62273; 70450; 85025; 96361; 96374; 96375; 99284; J1200; J2270; J2405; J2765; J7030; 82040; 82247; 82310; 82374; 82435; 82565; 82947; 84075; 84132; 84155; 84295; 84450; 84460; 84520

== ENCOUNTER 2018-04-09 00:39 | Day surgery (SDC) | payer MEDICARE, MEDICAID ==
[2018-04-09] VITALS (9 sets, daily range): BP systolic 87–138; BP diastolic 55–83
[~2018-04-09] VITALS: Ht 157.5 cm; Wt 117.0 kg
[~2018-04-09 00:39] MED LIST changes: +HYDR-385 PO; +LAMO200T3 PO; +METF-51 PO
[2018-04-09] MEDS ORDERED: MIDAZOLAM 2 MG/2 ML VIAL IVP PRN (06:00)
[2018-04-09] MEDS ORDERED: NORMOSOL R SOLN(*) 1000 ML BAG 1,000 ML IV PRN (06:00)
[2018-04-09] MEDS ORDERED: ceFAZolin(*) 2GM/D5W 50ML 50 ML IVPB ONE (06:00)
[2018-04-09] MEDS ORDERED: CELECOXIB 200 MG CAP PO ONE (06:00)
[2018-04-09] MEDS ORDERED: LIDOCAINE/SOD BICARB 8.4% SYR ID ONE (06:00)
[2018-04-09] MEDS ORDERED: ROPIVACAINE 0.2% 20 ML VIAL ONE (07:03)
[2018-04-09] MEDS ORDERED: ONDANSETRON 4 MG/2 ML VIAL ONE (07:21)
[2018-04-09] MEDS ORDERED: LIDOCAINE MPF 1% 5 ML VIAL ONE (07:21)
[2018-04-09] MEDS ORDERED: DEXAMETHASONE SOD 4 MG/ML VIAL ONE (07:21)
[2018-04-09] MEDS ORDERED: PROPOFOL EMUL(*) 10MG/ML 20 ML 40 ML ONE (07:21)
[2018-04-09] MEDS ORDERED: METOCLOPRAMIDE 10 MG/2 ML SDV ONE (07:21)
[2018-04-09] MEDS ORDERED: ceFAZolin(*) 1 GM VIAL 2 GM in NS(*) 0.9% 100 ML BAG 100 ML IVPB SCH (08:10)
[2018-04-09] MEDS ORDERED: ceFAZolin(*) 1 GM VIAL 2 GM in NS(*) 0.9% 100 ML BAG 100 ML IVPB ONE (08:10)
[2018-04-09] MEDS ORDERED: fentaNYL CITR 100 MCG/2 ML AMP ONE (08:16)
[2018-04-09] MEDS ORDERED: PROMETHAZINE 25 MG/ML 1 ML AMP ONE (09:26)
[2018-04-09] MEDS ORDERED: KETOROLAC 15 MG/ML VIAL ONE (09:50)
[2018-04-09] MEDS ORDERED: HYDR-385 PO (10:02)
[2018-04-09] MEDS ORDERED: ONDA4TAB97 PO (10:03)
--- NOTE | 2018-04-09 10:23 | OPERATIVE REPORT 1 ---
EVENT DATE: April 09, 2018 SURGEON: Osmin Flores M.D. ANESTHESIOLOGIST: Haja Dumas M.D. ANESTHESIA: General LMA. STUD DRIVER: KADIE Garcia PREOPERATIVE DIAGNOSIS Right knee meniscus tear as well as cartilage damage and synovitis. POSTOPERATIVE DIAGNOSIS Right knee meniscus tear as well as cartilage damage and synovitis. PROCEDURE PERFORMED Right knee arthroscopy with partial medial meniscectomy, partial lateral meniscectomy, chondroplasty, microfracture and synovectomy. SPECIMENS None. COMPLICATIONS None. TOURNIQUET TIME Seven minutes, which was only during the initial part of the case and then we had a venous tourniquet so, therefore, was let down. IMPLANTS USED None. CONDITION Stable and transferred to PACU. FINDINGS The patient has a significant amount of cartilage damage but was amenable for microfracture on the medial femoral condyle and also meniscus tears of the medial and lateral meniscus, which had some inner surface tearing and some irritation associated with the synovium. INDICATIONS AND HISTORY This patient is a 52-year-old female who presented to my clinic for evaluation of right knee pain and irritation going on for some time. She continued to have pain and irritation despite conservative management and so, therefore, an MRI revealed she did have a large cartilage disease associated with the knee and also small little meniscus tears so, therefore, I talked about surgical intervention. She wanted to go ahead with the knee arthroscopy with chondroplasty, synovectomy and partial meniscectomy. The risks and benefits were discussed with her and inform consent was obtained at the last visit. She understood there was no guarantee it would make her better and she may continue to have problems and issues associated with long-term. DESCRIPTION OF PROCEDURE The patient was brought to the operating room. She and the procedure were both verified. She was placed supine on the operating table and induced intubated by anesthesia. The right lower extremity was prepped and draped in the usual fashion. A time-out was observed, verifying the correct patient and procedure. After inflation of the tourniquet, small incisions were made over the anterior aspect of the knee in the standard fashion. The scope was inserted in the lateral side and diagnostic arthroscopy was performed. There were noted to be some loose fragments and irritation associated with the knee and large cartilage disease on the medial condyle. I then established a medial portal and performed a chondroplasty and synovectomy over the anterior aspect of the knee on the medial side and also towards the lateral side where it was rubbing on the distal condyle. We then also identified the distal femoral condylar lesion on the medial side and cleaned it up until we got to a nice stable base around the whole thing. Since it was nearly bare bone throughout the whole thing, we then put a microfracture back in the knee and microfractured it with about five or six holes in this area in order to try and stimulate some cartilage growth in the area. This was then followed by partial meniscectomy of the undersurface of the medial meniscus. Otherwise, the meniscus was good and stable to probe. We did perform chondroplasty on the proximal tibia in this region. I then turned attention to the central pivot, where there are no signs or issues associated with the ACL. I then was able to debride the lateral meniscus , where there was a tear on the posterior lateral meniscus right at the level of the root but there was no root detachment and also a little bit on the anterior aspect so we utilized suction shaver in order to remove this. I then was also able to perform chondroplasty on the proximal tibia on this side as there was a little more damage but not full thickness cartilage loss. I then reversed the portal, straightened the knee out and then removed some of the further plica and issues and synovitis on the lateral side and was able to also cauterize some bleeders in this area since we had let the tourniquet down with electrocautery. This was done followed by removal of the instrumentation, drainage of the fluid out of the knee, anesthetization with ropivacaine on the portal sites and then closure with 4-0 Monicryl, steri-strips, gauze, 4x4s and a soft dressing. The patient was awakened and extubated and transferred to PACU in stable condition. PIERRE
[2018-04-09] MEDS ORDERED: APAP/HYDROCODONE 325/5 TAB ONE (10:45)
[2018-04-09] MEDS ORDERED: ONDANSETRON 4 MG TAB PO ONE (12:10)
== END 2018-04-09 10:34 | disposition home or self-care (01) ==
LOC: OR 00:39
PROVIDERS: ATTEND Orthopaedic Surgery
DX: S83.206A Unspecified tear of unspecified meniscus, current injury, right knee, initial encounter (principal); S83.91XA Sprain of unspecified site of right knee, initial encounter; E11.9 Type 2 diabetes mellitus without complications
CPT/HCPCS: 29876; 29880; 36416; 82948; A9270; J1100; J1885; J2001; J2250; J2405; J2550; J2704; J2765; J2795; J3010; J0690

== ENCOUNTER 2018-04-15 01:24 | Observation (INO) | payer MEDICARE, MEDICAID ==
[~2018-04-15] VITALS: Ht 157.5 cm; Wt 116.6 kg
[2018-04-15] VITALS (20 sets, daily range): BP systolic 97–126; BP diastolic 50–90
[~2018-04-15 01:24] MED LIST changes: +ceFAZolin(*) 2GM/D5W 50ML 50 ML IVPB ONE
[2018-04-15] MEDS ORDERED: LIDOCAINE/SOD BICARB 8.4% SYR ID ONE (07:55)
[2018-04-15] MEDS ORDERED: MIDAZOLAM 2 MG/2 ML VIAL IVP PRN ×2 (07:55→11:40)
[2018-04-15] MEDS ORDERED: NORMOSOL R SOLN(*) 1000 ML BAG 1,000 ML IV PRN (07:55)
[2018-04-15] MEDS ORDERED: FAMOTIDINE 20 MG TAB PO ONE (09:40)
[2018-04-15] MEDS ORDERED: ceFAZolin(*) 2GM/D5W 50ML 50 ML IVPB ONE (10:15)
[2018-04-15] MEDS ORDERED: LIDO/EPI 1% MDV 1:100,000 20ML INFIL ONE (11:29)
[2018-04-15] MEDS ORDERED: LR(*) 1000 ML BAG 1,000 ML IV PRN (11:42)
--- NOTE | 2018-04-15 11:42 | Post Operative Note ---
Operative Note - ENT Operative Day Date: Apr 15, 2018 Physicians Surgeon: Bassam Anesthesia: GETA Diagnosis Pre-Op Diagnosis: obstructive sleep apnea Post-Op Diagnosis: same Procedure Procedure(s): UPPP Specimen Removed:(Maybe N/A): tonsils Complications: none Fluids Fluids: see anesthesia note Estimated Blood Loss: 25 ml LIZZY ARGUELLO JR, MD Apr 15, 2018 11:42
[2018-04-15] MEDS ORDERED: ONDANSETRON 4 MG ODT TABDP SL PRN (11:45)
[2018-04-15] MEDS ORDERED: PROMETHAZINE 25 MG/ML 1 ML AMP IVP PRN (11:45)
[2018-04-15] MEDS ORDERED: LIDOCAINE 2% VISC SLN 15ML UDC PO PRN (11:45)
[2018-04-15] MEDS ORDERED: fentaNYL CITR 100 MCG/2 ML AMP ONE ×2 (11:48→12:31)
[2018-04-15] MEDS ORDERED: SUCCINYLCHOL CHL 200MG/10ML VL ONE (12:00)
[2018-04-15] MEDS ORDERED: DEXAMETHASONE SOD PHOS 10MG/ML ONE (12:02)
[2018-04-15] MEDS ORDERED: PROPOFOL EMUL(*) 10MG/ML 20 ML 20 ML ONE (12:02)
[2018-04-15] MEDS ORDERED: ROCURONIUM BROM 10 MG/ML 10 ML ONE (12:02)
[2018-04-15] MEDS ORDERED: ONDANSETRON 4 MG/2 ML VIAL ONE (12:02)
[2018-04-15] MEDS ORDERED: SUGAMMADEX SOD 200 MG/2 ML SDV ONE (12:11)
[2018-04-15] MEDS ORDERED: GABAPENTIN 300 MG CAP PO SCH (13:00)
[2018-04-15] MEDS ORDERED: hydrOXYzine 25 MG TAB PO SCH (13:00)
[2018-04-15] MEDS ORDERED: HYDROmorphone HCL 2 MG/ML SDV ONE (13:06)
[2018-04-15] MEDS ORDERED: ACETAMINOPHEN(*)1000 MG/100 ML 100 ML IVPB ONE (13:43)
[2018-04-15] MEDS: MORPHINE 2 MG/ML SYR IVP PRN ×2 (15:06→19:04)
[2018-04-15] MEDS ORDERED: CLON-327 PO (15:20)
[2018-04-15] MEDS: SALMETEROL/FLUTIC 100/50 1 INH INH SCH (16:46)
[2018-04-15] MEDS ORDERED: DEXAMETHASONE SOD PHOS 10MG/ML IVP SCH (17:00)
[2018-04-15] MEDS: ceFAZolin(*) 1 GM VIAL 1 GM in NS(*) 0.9% 100 ML ADDVANT BAG 100 ML IVPB SCH (17:15)
[2018-04-15] MEDS: HYDROCOD/ACETAMIN 2.5-108/5 ML 5 ML UDC PO PRN ×2 (17:18→22:36)
[2018-04-15] MEDS ORDERED: SIMVASTATIN 20 MG TAB PO SCH (21:00)
[2018-04-15] MEDS ORDERED: lamoTRIgine 100 MG TAB PO SCH (21:00)
[2018-04-15] MEDS: GABAPENTIN 300 MG CAP PO SCH (21:47)
[2018-04-15] MEDS: hydrOXYzine 25 MG TAB PO SCH (21:48)
[2018-04-15] MEDS: VENLAFAXINE XR 75 MG CAPCR PO SCH (21:50)
[2018-04-16] VITALS: BP 115/64
[2018-04-16] MEDS: DEXAMETHASONE SOD 20MG/5 ML VL IVP SCH ×2 (01:44→09:00)
[2018-04-16] MEDS: ceFAZolin(*) 1 GM VIAL 1 GM in NS(*) 0.9% 100 ML ADDVANT BAG 100 ML IVPB SCH ×2 (01:57→09:00)
[2018-04-16 03:02] VITALS: BP 100/46
[2018-04-16] MEDS: SALMETEROL/FLUTIC 100/50 1 INH INH SCH (05:23)
[2018-04-16] MEDS: HYDROCOD/ACETAMIN 2.5-108/5 ML 5 ML UDC PO PRN ×2 (05:54→11:16)
[2018-04-16 06:58] VITALS: BP 127/74
[2018-04-16] MEDS ORDERED: AMOX-362 PO (07:59)
[2018-04-16] MEDS ORDERED: LIDO15SO2 PO (07:59)
--- NOTE | 2018-04-16 08:01 | Short(Outpt) Discharge Summary ---
Discharge Summary Reason for Hosp/Final Diag: (1) Sleep apnea Status: Chronic Hospital Course & Plan: patient underwent UPPP. miranda po. pain controlled. requires BiPAP with oxygen overnight. Departure Discharge to: Home Discharge Instructions Home Meds Reported Medications Clonidine Hcl (CLONIDINE HCL) 0.1 Mg Tablet, 0.1 MG PO HS, TAB 04/15/18 Ondansetron Hcl (ZOFRAN) 4 Mg Tablet, 4 MG PO Q6H Y for NAUSEA, #30 TAB 04/09/18 Hydrocodone Bit/Acetaminophen (HYDROCODON-ACETAMINOPHEN 5-325) 1 Each Tablet, 1- 2 EACH PO Q4-6H Y for PAIN, #40 TAB 04/09/18 Metformin HCl (Metformin HCl ER) 500 Mg [id number], 1 TAB PO DAILY 04/02/18 Lamotrigine (LAMOTRIGINE) 200 Mg Tab.er.24, 200 MG PO HS 04/02/18 Furosemide (LASIX) 40 Mg Tablet, 1 TAB PO QDAY, TAB 02/26/18 Ondansetron Hcl (ZOFRAN) 4 Mg Tablet, 8 MG PO QHS Y for NAUSEA, TAB 01/29/18 Omeprazole (OMEPRAZOLE) 40 Mg Capsule.dr, 40 MG PO QDAY, CAP 01/28/18 Albuterol Sulfate 90 Mcg/Act (PROAIR HFA 90 MCG/ACT) 8.5 Gm Hfa.aer.ad, 2 PUFF IH QID, INHALER 01/28/18 Simvastatin (ZOCOR) 10 Mg Tablet, 10 MG PO DAILY, TAB 01/28/18 Fluticasone/Salmeterol (ADVAIR 100-50 DISKUS) 1 Each Disk.w.dev, 1 EACH IH BID 01/28/18 Aspirin (ASPIR 81) 81 Mg Tablet.dr, 81 MG PO QDAY, TAB 01/28/18 Venlafaxine Hcl (EFFEXOR XR) 75 Mg Cap.er.24h, 75 MG PO BID Take 2 caps in AM and 1 cap at HS 11/25/16 Hydroxyzine Hcl (HYDROXYZINE HCL) 25 Mg Tablet, 2 TAB PO QID 11/25/16 Gabapentin (GABAPENTIN) 600 Mg Tablet, 1 TAB PO QID, #9 MG 0 Refills TAKE ONE CAPSULE BY MOUTH FOUR TIMES A DAY 10/05/13 Discontinued Reported Medications Hydrocodone Bit/Acetaminophen (HYDROCODON-ACETAMINOPHEN 5-325) 1 Each Tablet, 1 EACH PO Q4-6H Y for PAIN, TAB 04/02/18 Diet: Regular Activity: No Heavy Lifting, No Exertion Special Instructions: Continue BiPAP with oxygen at night. Patient has follow up scheduled with my office in 2 weeks. Problem Qualifiers (1) Sleep apnea: Sleep apnea type: obstructive Qualified Codes: G47.33 - Obstructive sleep apnea (adult) (pediatric) LIZZY ARGUELLO JR, MD Apr 16, 2018 08:01
[2018-04-16 08:17] VITALS: Ht 157.5 cm; Wt 116.6 kg
[2018-04-16] MEDS ORDERED: metFORMIN HCL XR 500 MG TABCR PO SCH (09:00)
[2018-04-16] MEDS ORDERED: FUROSEMIDE 40 MG TAB PO SCH (09:00)
[2018-04-16] MEDS ORDERED: PANTOPRAZOLE SOD 40 MG TABEC PO SCH (09:00)
--- NOTE | 2018-04-16 09:15 | OPERATIVE REPORT 1 ---
EVENT DATE: April 15, 2018 SURGEON: Handy Banegas MD ANESTHESIOLOGIST: Daniele Branham MD ANESTHESIA: General endotracheal PROCEDURE PERFORMED Uvulopalatopharyngoplasty. PREOPERATIVE DIAGNOSIS Obstructive sleep apnea. POSTOPERATIVE DIAGNOSIS Obstructive sleep apnea. INDICATIONS FOR PROCEDURE Please refer to the preoperative note. DESCRIPTION OF PROCEDURE The patient was positively identified in the preoperative area. She was there alone. The risks were again explained including, but not limited to, bleeding infection, uvulopharyngeal insufficiency and those associated with anesthesia. She acknowledged understanding those risks. She was then brought back to the operative suite, placed supine on the operative table and anesthesia was administrated. Once asleep, the patient was positioned and prepped and draped in the usual sterile fashion. A McIvor mouth gag was inserted into the patient' s oral cavity. Red rubber catheter was initially placed in the right nostril and utilized to suspend the soft palate. The patient was noted to have 3+ tonsils bilaterally. The right tonsil was grasped with curved Allis forceps and carefully dissected from the lateral pharyngeal wall with Bovie electrocautery. In a similar fashion, the contralateral tonsil was removed. The tosillar fossa was then cauterized with Bovie electrocautery. A finger was used to approximate the soft palate with the posterior pharyngeal wall to determine the extent of the palate of resection. A Chevron incision was made with needle tip Bovie. The redundant soft palatal tissue was removed and a uvula flap was fashioned and rotated into the Chevron defect and secured with interrupted 5-0 Vicryl suture. The bilateral anterior and posterior tonsillar pillars were then reapproximated with horizontal mattress sutures of Vicryl. The patient was then turned to anesthesia for emergence. ESTIMATED BLOOD LOSS 5 mL COMPLICATIONS None. MTDD
[2018-04-16] MEDS: VENLAFAXINE XR 75 MG CAPCR PO SCH (09:26)
[2018-04-16] MEDS: hydrOXYzine 25 MG TAB PO SCH ×2 (09:27→12:33)
[2018-04-16] MEDS: GABAPENTIN 300 MG CAP PO SCH ×2 (09:27→12:33)
[2018-04-16 11:07] VITALS: BP 129/79
[2018-04-22] MEDS ORDERED: LIDO15SO2 PO (15:32)
== END 2018-04-16 08:34 | disposition home or self-care (01) ==
LOC: OR 01:24 → MED 14:25
PROVIDERS: ADMIT Otolaryngology; ATTEND Otolaryngology
DX: G47.33 Obstructive sleep apnea (adult) (pediatric) (principal)
CPT/HCPCS: 42145; 88304; 94640; A9270; G0378; J0131; J0330; J0690; J1100; J1170; J2250; J2270; J2405; J2704; J3010; J3535; J7050; Q0162; S0119

== ENCOUNTER → 2018-04-26 | Outpatient (CLI) | payer MEDICARE, MEDICAID ==
[2018-04-16 08:17] VITALS: BMI 47.0
[~2018-04-26] MED LIST changes: +AMOX-362 PO; +CLON-327 PO; +LIDO15SO2 PO; -ceFAZolin(*) 2GM/D5W 50ML 50 ML IVPB ONE
== END ==
LOC: RESP 20:56
PROVIDERS: ATTEND Otolaryngology
DX: G47.33 Obstructive sleep apnea (adult) (pediatric) (principal); G47.61 Periodic limb movement disorder

== ENCOUNTER 2018-05-12 12:48 | Emergency (ER) | payer MEDICARE, MEDICAID ==
[2018-04-16 08:17] VITALS: Wt 119.3 kg
[2018-05-12] MEDS ORDERED: MORPHINE 4 MG/ML SDV IVP ONE (13:15)
[2018-05-12] MEDS ORDERED: NS(*) 0.9% 1000 ML BAG 1,000 ML IV ONE (13:15)
--- NOTE | 2018-05-12 13:15 | ER Report ---
History and Physical Time Seen By MD: 12:59 HPI/ROS Chief Complaint: "shortness of breath" HPI: 53-year-old patient presents with complaints of right sided pain chest pain, shortness of breath, and a syncope episode at [employer]. The pain started this morning at [employer]. She went to the bathroom and passed out and woke up to find herself on the bathroom floor. Reports she had some shortness of breath before the syncopal episode with nausea. The pain is an 8/10. The shortness of breath was unrelieved by rest. The last time she ate was a breakfast sandwich at around 07:30. No treatments tried, no other associated symptoms. History of COPD, type II diabetes, smoking, and congestive carranza failure. ROS: Constitutional: denies fever, chills or sweating HEENT: denies cough or congestion Respiratory: reports shortness of breath, reports difficulty breathing CV: reports right sided chest pain, denies palpitations GI: reports nausea, denies vomiting, denies constipation or diarrhea : reports increased urination flow with use of furosemide, denies burning, hesitancy, or urgency of urination Allergies: Coded Allergies: codeine (Verified Allergy, Severe, ANAPHYLAXIS, 03/22/18) oxycodone (Verified Allergy, Mild, AIRWAY OBSTRUCTION, 03/22/18) Home Meds Active Scripts Azithromycin 250 Mg Tab (AZITHROMYCIN 250 MG TAB) 250 Mg Tablet, 1 TAB PO QDAY for 5 Days, #6 TAB Take 2 tabs today and then 1 tab a day until gone. Prov:AMINAHMARCELLO [facility] 05/12/18 Reported Medications Venlafaxine Hcl (VENLAFAXINE HCL ER) 75 Mg Cap.er.24h, 75 MG PO QDAY 05/12/18 Clonidine HCl (Clonidine HCl ER) 0.1 Mg Tab.er.12h, 0.2 MG PO 05/12/18 Ondansetron Hcl (ZOFRAN) 4 Mg Tablet, 4 MG PO Q6H Y for NAUSEA, #30 TAB 04/09/18 Metformin HCl (Metformin HCl ER) 500 Mg [id number], 1 TAB PO DAILY 04/02/18 Lamotrigine (LAMOTRIGINE) 200 Mg Tab.er.24, 200 MG PO HS 04/02/18 Furosemide (LASIX) 40 Mg Tablet, 1 TAB PO QDAY, TAB 02/26/18 Ondansetron Hcl (ZOFRAN) 4 Mg Tablet, 8 MG PO QHS Y for NAUSEA, TAB 01/29/18 Omeprazole (OMEPRAZOLE) 40 Mg Capsule.dr, 40 MG PO QDAY, CAP 01/28/18 Albuterol Sulfate 90 Mcg/Act (PROAIR HFA 90 MCG/ACT) 8.5 Gm Hfa.aer.ad, 2 PUFF IH QID, INHALER 01/28/18 Simvastatin (ZOCOR) 10 Mg Tablet, 10 MG PO DAILY, TAB 01/28/18 Fluticasone/Salmeterol (ADVAIR 100-50 DISKUS) 1 Each Disk.w.dev, 1 EACH IH BID 01/28/18 Hydroxyzine Hcl (HYDROXYZINE HCL) 25 Mg Tablet, 2 TAB PO QID 11/25/16 Gabapentin (GABAPENTIN) 600 Mg Tablet, 1 TAB PO QID, #9 MG 0 Refills TAKE ONE CAPSULE BY MOUTH FOUR TIMES A DAY 10/05/13 Discontinued Reported Medications Clonidine Hcl (CLONIDINE HCL) 0.1 Mg Tablet, 0.1 MG PO HS, TAB 04/15/18 Venlafaxine Hcl (EFFEXOR XR) 75 Mg Cap.er.24h, 75 MG PO BID Take 2 caps in AM and 1 cap at HS 11/25/16 Discontinued Scripts Lidocaine HCl (Lidocaine HCl Viscous) 2 % Solution, 15 ML PO Q2H Y for PAIN for 7 Days, #450 ML Prov:LIZZY ARGUELLO JR, MD 04/22/18 Past Medical/Surgical History 3-4 week headache every few months, hypertension, hypercholesteremia, asthma diagnoses as a young child, cholecystectomy, spinal fusion of C2-C6, degenerative disc disease for 20 years, herniated thoracic discs, trigger finger release 2017, left hand surgery in 1989, damaged teeth, hearing loss, anemia, blood clots 2005, blood transfusions after hysterectomy, PTSD, depression, gastric bypass 1994, ruptured spleen during the gastric bypass, spleen repair in 1994, femoral artery rupture repair, anxiety and depression Reviewed Nurses Notes: Yes Hx Smoking: Yes (4-6 CIGARETTES A DAY) Smoking Status: Current: Every Day Smoker Exposure to Second Hand Smoke?: Yes Hx Substance Use Disorder: No Hx Alcohol Use: No Constitutional Vital Sign - Last 24 Hours 05/12/18 05/12/18 05/12/18 05/12/18 12:53 13:00 13:18 13:22 Temp 97.8 Pulse 71 70 Resp 19 13 B/P (MAP) 125/75 (92) 125/75 111/64 (80) Pulse Ox 96 95 O2 Delivery Room Air 05/12/18 05/12/18 05/12/18 05/12/18 13:30 13:48 14:00 15:00 Pulse 72 Resp 10 B/P (MAP) 121/71 (88) 123/54 (77) 109/78 (88) Pulse Ox 96 05/12/18 05/12/18 05/12/18 15:05 15:30 15:35 Pulse 70 68 Resp 30 16 B/P (MAP) 119/66 (83) Pulse Ox 93 96 Physical Exam Physical Examination: General: 53-year-old female grabbing her right side in pain HEENT: normocephalic, atraumatic, pharynx without erythema or exudate, no lymphadenopathy of the pre-, post-auricular, or cervical chains Respiratory: Bl equal respiratory excursion, CTA BL CV: Clear S1 S2, no murmur GI: nondistended, obese abdomen, normoactive BS x 4, right sided pain on palpation, epigastric pain Musculoskeletal: moves all extremities Differential Diagnoses: pancreatitis, kidney stone, OR, GERD, UTI Medical Decision Making Data Points Result Diagram: 05/12/18 1333 05/12/18 1333 Laboratory Hematology Test 05/12/18 13:33 05/12/18 13:58 Red Blood Count 4.47 M/uL (4.17-5.56) Mean Corpuscular Volume 92.2 fL (80.0-96.0) Mean Corpuscular Hemoglobin 31.5 pg (26.0-33.0) Mean Corpuscular Hemoglobin Concent 34.2 g/dL (32.0-36.0) Red Cell Distribution Width 15.8 % (11.5-14.5) Mean Platelet Volume 8.1 fL (7.2-11.1) Neutrophils (%) (Auto) 53.9 % (39.4-72.5) Lymphocytes (%) (Auto) 35.1 % (17.6-49.6) Monocytes (%) (Auto) 8.4 % (4.1-12.4) Eosinophils (%) (Auto) 0.7 % (0.4-6.7) Basophils (%) (Auto) 1.9 % (0.3-1.4) Nucleated RBC Relative Count (auto) 0.1 /100WBC Neutrophils # (Auto) 3.9 K/uL (2.0-7.4) Lymphocytes # (Auto) 2.5 K/uL (1.3-3.6) Monocytes # (Auto) 0.6 K/uL (0.3-1.0) Eosinophils # (Auto) 0.1 K/uL (0.0-0.5) Basophils # (Auto) 0.1 K/uL (0.0-0.1) Nucleated RBC Absolute Count (auto) 0.00 K/uL Sodium Level 139 mmol/L (137-145) Potassium Level 3.1 mmol/L (3.5-5.0) Chloride Level 99 mmol/L (98-107) Carbon Dioxide Level 32 mmol/L (22-31) Blood Urea Nitrogen 13 mg/dl (7-18) Creatinine 0.80 mg/dl (0.52-1.04) Glomerular Filtration Rate Calc > 60.0 Random Glucose 106 mg/dl (75-110) Calcium Level 8.7 mg/dl (8.4-10.2) Total Bilirubin 0.4 mg/dl (0.2-1.3) Aspartate Amino Transf (AST/SGOT) 22 U/L (0-35) Alanine Aminotransferase (ALT/SGPT) 21 U/L (0-56) Alkaline Phosphatase 88 U/L (0-126) Troponin I < 0.012 ng/ml Total Protein 6.6 g/dl (6.3-8.2) Albumin 3.6 g/dl (3.5-5.0) Amylase Level 73 U/L (0-110) Lipase 78 U/L (23-300) Urine Color Straw Urine Clarity Clear Urine pH 7.0 pH (4.8-9.5) Urine Specific [place] 1.006 Urine Protein Negative mg/dL (NEGATIVE) Urine Glucose (UA) Negative mg/dL (NEGATIVE) Urine Ketones Negative mg/dL (NEGATIVE) Urine Blood Negative (NEGATIVE) Urine Nitrite Negative (NEGATIVE) Urine Bilirubin Negative (NEGATIVE) Urine Urobilinogen Negative mg/dL (0.2-1.9) Urine Leukocyte Esterase Negative (NEGATIVE) Urine RBC None /HPF (0-2/HPF) Urine WBC 1 /HPF (0-5/HPF) Urine Squamous Epithelial Cells Many /LPF (</=FEW) Urine Bacteria Few /HPF (NONE-FEW) Urine Hyaline Casts Few /LPF (NONE-FEW) Urine Mucus None /HPF (NONE-FEW) Chemistry Test 05/12/18 13:33 05/12/18 13:58 White Blood Count 7.2 k/uL (4.5-11.0) Red Blood Count 4.47 M/uL (4.17-5.56) Hemoglobin 14.1 g/dL (12.0-16.0) Hematocrit 41.2 % (34.0-47.0) Mean Corpuscular Volume 92.2 fL (80.0-96.0) Mean Corpuscular Hemoglobin 31.5 pg (26.0-33.0) Mean Corpuscular Hemoglobin Concent 34.2 g/dL (32.0-36.0) Red Cell Distribution Width 15.8 % (11.5-14.5) Platelet Count 214 K/uL (150-450) Mean Platelet Volume 8.1 fL (7.2-11.1) Neutrophils (%) (Auto) 53.9 % (39.4-72.5) Lymphocytes (%) (Auto) 35.1 % (17.6-49.6) Monocytes (%) (Auto) 8.4 % (4.1-12.4) Eosinophils (%) (Auto) 0.7 % (0.4-6.7) Basophils (%) (Auto) 1.9 % (0.3-1.4) Nucleated RBC Relative Count (auto) 0.1 /100WBC Neutrophils # (Auto) 3.9 K/uL (2.0-7.4) Lymphocytes # (Auto) 2.5 K/uL (1.3-3.6) Monocytes # (Auto) 0.6 K/uL (0.3-1.0) Eosinophils # (Auto) 0.1 K/uL (0.0-0.5) Basophils # (Auto) 0.1 K/uL (0.0-0.1) Nucleated RBC Absolute Count (auto) 0.00 K/uL Glomerular Filtration Rate Calc > 60.0 Calcium Level 8.7 mg/dl (8.4-10.2) Total Bilirubin 0.4 mg/dl (0.2-1.3) Aspartate Amino Transf (AST/SGOT) 22 U/L (0-35) Alanine Aminotransferase (ALT/SGPT) 21 U/L (0-56) Alkaline Phosphatase 88 U/L (0-126) Troponin I < 0.012 ng/ml Total Protein 6.6 g/dl (6.3-8.2) Albumin 3.6 g/dl (3.5-5.0) Amylase Level 73 U/L (0-110) Lipase 78 U/L (23-300) Urine Color Straw Urine Clarity Clear Urine pH 7.0 pH (4.8-9.5) Urine Specific [place] 1.006 Urine Protein Negative mg/dL (NEGATIVE) Urine Glucose (UA) Negative mg/dL (NEGATIVE) Urine Ketones Negative mg/dL (NEGATIVE) Urine Blood Negative (NEGATIVE) Urine Nitrite Negative (NEGATIVE) Urine Bilirubin Negative (NEGATIVE) Urine Urobilinogen Negative mg/dL (0.2-1.9) Urine Leukocyte Esterase Negative (NEGATIVE) Urine RBC None /HPF (0-2/HPF) Urine WBC 1 /HPF (0-5/HPF) Urine Squamous Epithelial Cells Many /LPF (</=FEW) Urine Bacteria Few /HPF (NONE-FEW) Urine Hyaline Casts Few /LPF (NONE-FEW) Urine Mucus None /HPF (NONE-FEW) Urinalysis Test 05/12/18 13:58 Urine Color Straw Urine Clarity Clear Urine pH 7.0 pH (4.8-9.5) Urine Specific [place] 1.006 Urine Protein Negative mg/dL (NEGATIVE) Urine Glucose (UA) Negative mg/dL (NEGATIVE) Urine Ketones Negative mg/dL (NEGATIVE) Urine Blood Negative (NEGATIVE) Urine Nitrite Negative (NEGATIVE) Urine Bilirubin Negative (NEGATIVE) Urine Urobilinogen Negative mg/dL (0.2-1.9) Urine Leukocyte Esterase Negative (NEGATIVE) Urine RBC None /HPF (0-2/HPF) Urine WBC 1 /HPF (0-5/HPF) Urine Squamous Epithelial Cells Many /LPF (</=FEW) Urine Bacteria Few /HPF (NONE-FEW) Urine Hyaline Casts Few /LPF (NONE-FEW) Urine Mucus None /HPF (NONE-FEW) ED Course/Re-evaluation ED Course 53-year-old female presents to the emergency department with right sided upper quadrant pain. She reports a syncope episode at [employer] this morning with some associated shortness of breath and nausea. History and physical examination obtained. Differential diagnoses considered and shared with the patient. EKG, CBC, CMP, UA, troponin, pancreatic enzymes, and CT of the abdomen with contrast obtained. CT decreases my suspension of an acute abdomen and is more indicative of pneumonia. The patient will be sent home for home care on azythromycin. She has been encouraged to return to the emergency department if her condition worsens. Decision to Disposition Date: May 12, 2018 Decision to Disposition Time: 15:26 Depart Departure Latest Vital Signs Vital Signs Date Time Temp Pulse Resp B/P (MAP) Pulse Ox O2 Delivery O2 Flow Rate FiO2 05/12/18 15:35 68 16 96 05/12/18 15:30 119/66 (83) 05/12/18 13:00 97.8 Room Air Impression: Primary Impression: Pneumonia Additional Impression: Lumbar paraspinal muscle spasm Condition: Improved Disposition: HOME OR SELF-CARE Referrals: OC PEREZ MD (PCP) New Scripts Azithromycin 250 Mg Tab (AZITHROMYCIN 250 MG TAB) 250 Mg Tablet 1 TAB PO QDAY for 5 Days, #6 TAB Take 2 tabs today and then 1 tab a day until gone. Prov: MARCELLO BURR 05/12/18 Patient Instructions: Bacterial Pneumonia (ED) Additional Instructions: Take antibiotics as directed for five days. Continue to rest and hydrate. Advance diet as tolerated. Potentially start with some broth and rice. Return to the emergency department if your condition worsens. Problem Qualifiers Primary Impression: Pneumonia Pneumonia type: due to unspecified organism Laterality: unspecified laterality Lung location: lower lobe of lung Qualified Codes: J18.1 - Lobar pneumonia, unspecified organism MARCELLO BURR May 12, 2018 13:15
[2018-05-12 13:41] LABS: PLATELET COUNT, AUTOMATED 214 K/uL (150-450)
[2018-05-12] MEDS ORDERED: CLON0.1T14 PO (13:53)
[2018-05-12] MEDS ORDERED: VENL75CA4 PO (13:53)
[2018-05-12] MEDS ORDERED: IOPAMIDOL 76% 100 ML INFUS BTL 100 ML ONE ×2 (14:15→14:46)
--- NOTE | 2018-05-12 14:35 | RADIOLOGY IMAGING REPORT ---
FACILITY: [facility] [place] PATIENT NAME: Yolanda Olivia : 1965 MR: [id number] V: [id number] EXAM DATE: ORDERING PHYSICIAN: MARCELLO BURR TECHNOLOGIST: [place] [facility] [place]: Yolanda Olivia : 1965 Visit/Account:[id number] Date of Sevice: 05/12/2018 2 VIEWS CHEST INDICATION: Chest pain. COMPARISON: March 14, 2018 FINDINGS: Heart size within normal limits. There is no focal infiltrate or lobar consolidation. There is no pneumothorax or pleural effusion. Note is made of cervical fusion hardware. Degenerative changes within the thoracic spine. IMPRESSION: 1. No acute cardiopulmonary process. Report Dictated By: Gregory Abdi MD at 05/12/2018 2:31 PM Report E-Signed By: Gregory Abdi MD at 05/12/2018 2:32 PM WSN:[id number]
[2018-05-12] MEDS ORDERED: IOPAMIDOL 76% 50 ML INFUS BTL 0 ML ONE (14:40)
[2018-05-12] MEDS ORDERED: KETOROLAC 15 MG/ML VIAL IVP ONE (15:05)
--- NOTE | 2018-05-12 15:18 | RADIOLOGY IMAGING REPORT ---
FACILITY: [facility] PATIENT NAME: Yolanda Olivia : 1965 MR: [id number] V: [id number] EXAM DATE: ORDERING PHYSICIAN: MARCELLO BURR TECHN[place]IST: [place] [facility] [place]anda [place] : 1965 Visit/Account:[id number] Date of Sevice: 05/12/2018 EXAMINATION: CT abdomen and pelvis with IV contrast HISTORY: Abdominal pain. TECHNIQUE: Axial CT images of the abdomen and pelvis were obtained with IV contrast, with coronal a nd sagittal 2D reconstructed images. One of the following dose optimization techniques was utilized in the performance of this exam: Autom ated exposure control; adjustment of the mA and/or kV according to the patient's size; or use of an i terative reconstruction technique. Specific details can be referenced in the facility's radiology C T exam operational policy. Contrast: 75 mL of IV Isovue-370. COMPARISON: None. FINDINGS: Liver: Fatty infiltration of the liver. Gallbladder and bile ducts: Cholecystectomy. Mild prominence of the central bile ducts may relate to the postcholecystectomy state. Spleen: Negative. Pancreas: Negative. Adrenal glands: Negative. Kidneys: Negative. No hydronephrosis or urinary calculi. Bowel and peritoneum: The small bowel and colon are normal in caliber, without evidence of obstructi on or any focal inflammatory process. No abnormal bowel wall thickening. Colonic diverticulosis along the sigmoid colon, without evidence of diverticulitis. The appendix is not visualized. It may be atr ophic or surgically absent. No free fluid or free intraperitoneal air. Surgical changes of gastric by pass. Pelvic structures: Hysterectomy. Lymph node assessment: Negative. Vessels: Negative. Musculoskeletal: Scattered degenerative changes along the spine. No acute osseous findings. Body wall: Small fat-containing umbilical hernia. Lung bases: Mild patchy groundglass opacity in the lingula is likely infectious or inflammatory. IMPRESSION: 1. No CT evidence of acute intra-abdominal pathology. 2. Colonic diverticulosis, without evidence of diverticulitis. 3. Prior cholecystectomy, hysterectomy, and gastric bypass surgery. 4. Small amount of patchy groundglass opacity in the lingula is likely infectious or inflammatory. Report Dictated By: Handy Banegas MD at 05/12/2018 3:04 PM Report E-Signed By: Handy Banegas MD at 05/12/2018 3:14 PM WSN:[id number]
[2018-05-12 15:30] VITALS: BP 119/66
[2018-05-12] MEDS ORDERED: AZIT-18 PO (15:38)
[2018-05-12] MEDS ORDERED: AZITHROMYCIN 250 MG TAB PO ONE (15:45)
== END 2018-05-12 15:56 | disposition home or self-care (01) ==
LOC: ER 12:53
DX: J18.1 Lobar pneumonia, unspecified organism (principal); M62.830 Muscle spasm of back
CPT/HCPCS: 81001; 82150; 83690; 84484; 85025; 96361; 96374; 96375; 99284; J1885; J2270; J7030; Q0144; Q9967; 71046; 74177; 82040; 82247; 82310; 82374; 82435; 82565; 82947; 84075; 84132; 84155; 84295; 84450; 84460; 84520

== ENCOUNTER 2018-05-16 18:37 | Emergency (ER) | payer MEDICARE, MEDICAID ==
[2018-04-16 08:17] VITALS: Wt 119.3 kg
[~2018-05-16 18:37] MED LIST changes: +AZIT-18 PO; +CLON0.1T14 PO; +VENL75CA4 PO
--- NOTE | 2018-05-16 18:55 | ER Report ---
History and Physical Time Seen By MD: 18:51 Hx. of Stated Complaint: pt dx with pneumonia, coughing up green stuff, after zpack states she is worse, pain in R side back HPI/ROS CHIEF COMPLAINT: Productive cough HISTORY OF PRESENT ILLNESS: This is a 53-year-old female who presents to the emergency department for concerns of recurrent pneumonia. Patient states she was here last Sunday diagnosed with pneumonia started on a Z-[place], followed up with her primary care provider after the antibiotics were complete. She has had an increased productive cough over the last couple of days, she does not feel as though the antibiotics of helped. Patient also states that she is back on oxygen. Patient states she has little to no energy. No aches or chills. No fevers. No nausea or vomiting. No chest pain. REVIEW OF SYSTEMS: Constitutional: No fever, no chills. Eyes: No discharge. ENT: No sore throat. Cardiovascular: No chest pain, no palpitations. Respiratory: As above. Gastrointestinal: No abdominal pain, no vomiting. Genitourinary: No hematuria. Musculoskeletal: No back pain. Skin: No rashes. Neurological: No headache. Allergies: Coded Allergies: codeine (Verified Allergy, Severe, ANAPHYLAXIS, 03/22/18) oxycodone (Verified Allergy, Mild, AIRWAY OBSTRUCTION, 03/22/18) Home Meds Active Scripts Doxycycline Hyclate (DOXYCYCLINE HYCLATE) 100 Mg Tablet.dr, 100 MG PO BID, #12 TAB 0 Refills Prov:FELICIANO DAVIS Escobar [employer]- 05/16/18 Reported Medications Venlafaxine Hcl (VENLAFAXINE HCL ER) 75 Mg Cap.er.24h, 75 MG PO QDAY 05/12/18 Clonidine HCl (Clonidine HCl ER) 0.1 Mg Tab.er.12h, 0.2 MG PO 05/12/18 Ondansetron Hcl (ZOFRAN) 4 Mg Tablet, 4 MG PO Q6H Y for NAUSEA, #30 TAB 04/09/18 Metformin HCl (Metformin HCl ER) 500 Mg Dcanznu65x, 1 TAB PO DAILY 04/02/18 Lamotrigine (LAMOTRIGINE) 200 Mg Tab.er.24, 200 MG PO HS 04/02/18 Furosemide (LASIX) 40 Mg Tablet, 1 TAB PO QDAY, TAB 02/26/18 Ondansetron Hcl (ZOFRAN) 4 Mg Tablet, 8 MG PO QHS Y for NAUSEA, TAB 01/29/18 Omeprazole (OMEPRAZOLE) 40 Mg Capsule.dr, 40 MG PO QDAY, CAP 01/28/18 Albuterol Sulfate 90 Mcg/Act (PROAIR HFA 90 MCG/ACT) 8.5 Gm Hfa.aer.ad, 2 PUFF IH QID, INHALER 01/28/18 Simvastatin (ZOCOR) 10 Mg Tablet, 10 MG PO DAILY, TAB 01/28/18 Fluticasone/Salmeterol (ADVAIR 100-50 DISKUS) 1 Each Disk.w.dev, 1 EACH IH BID 01/28/18 Hydroxyzine Hcl (HYDROXYZINE HCL) 25 Mg Tablet, 2 TAB PO QID 11/25/16 Gabapentin (GABAPENTIN) 600 Mg Tablet, 1 TAB PO QID, #9 MG 0 Refills TAKE ONE CAPSULE BY MOUTH FOUR TIMES A DAY 10/05/13 Discontinued Reported Medications Clonidine Hcl (CLONIDINE HCL) 0.1 Mg Tablet, 0.1 MG PO HS, TAB 04/15/18 Venlafaxine Hcl (EFFEXOR XR) 75 Mg Cap.er.24h, 75 MG PO BID Take 2 caps in AM and 1 cap at HS 11/25/16 Discontinued Scripts Azithromycin 250 Mg Tab (AZITHROMYCIN 250 MG TAB) 250 Mg Tablet, 1 TAB PO QDAY for 5 Days, #6 TAB Take 2 tabs today and then 1 tab a day until gone. Prov:MARCELLO BURR 05/12/18 Lidocaine HCl (Lidocaine HCl Viscous) 2 % Solution, 15 ML PO Q2H Y for PAIN for 7 Days, #450 ML Prov:LIZZY ARGUELLO JR, MD 04/22/18 Past Medical/Surgical History The patient has a past medical and surgical history of migraines, heart attack, suspected heart attack, angina, hypertension, hypercholesterolemia, asthma, pneumonia, gastric bypass, gastric ulcers, GERD, menopause, C2-C6 fusion, turgor finger release, multiple fractures, chronic back pain, hearing loss, type II diabetes, anemia, depression, PTSD, cholecystectomy, appendectomy, splenic repair, carpal tunnel release, bursa repair, adenoidectomy., Reviewed Nurses Notes: Yes Hx Smoking: Yes (4-6 CIGARETTES A DAY) Smoking Status: Current: Every Day Smoker Exposure to Second Hand Smoke?: Yes Hx Substance Use Disorder: No Hx Alcohol Use: No Constitutional Vital Sign - Last 24 Hours 05/16/18 05/16/18 05/16/18 05/16/18 18:37 18:42 18:45 18:52 Temp 98.2 Pulse ??? 74 71 Resp 20 B/P (MAP) 129/88 (102) 129/88 Pulse Ox 99 96 O2 Delivery Nasal Cannula 05/16/18 05/16/18 05/16/18 05/16/18 19:07 19:15 19:22 19:30 Pulse 67 ??? B/P (MAP) 105/66 (79) 116/64 (81) Pulse Ox 97 05/16/18 05/16/18 05/16/18 05/16/18 19:37 19:45 19:52 20:00 Pulse 66 69 B/P (MAP) 114/60 (78) 112/71 (85) Pulse Ox 98 98 05/16/18 05/16/18 05/16/18 05/16/18 20:07 20:15 20:20 20:25 Pulse 71 71 B/P (MAP) 115/63 (80) Pulse Ox 98 98 99 O2 Delivery Nasal Cannula O2 Flow Rate 2.0 05/16/18 05/16/18 05/16/18 05/16/18 20:25 20:30 20:35 20:35 Pulse 69 ??? 72 Resp 16 16 B/P (MAP) ???/??? (1665) 05/16/18 05/16/18 20:46 20:50 Pulse ??? B/P (MAP) 117/65 (82) Physical Exam General Appearance: The patient is alert, has no immediate need for airway protection and no signs of toxicity. Eyes: Pupils equal and round no pallor or injection. ENT, Mouth: Mucous membranes are moist. Respiratory: There are no retractions, rhonchorous lung sounds in the left upper and lower winston, right lung winston clear. Cardiovascular: Regular rate and rhythm, no murmurs, clicks or rubs. Gastrointestinal: Abdomen is soft and non tender, no masses, bowel sounds normal. Neurological: Alert and oriented 4. Moving all extremities. Following all commands. No focal neuro deficits. Skin: Warm and dry, no rashes. Musculoskeletal: Neck is supple non tender. Extremities are nontender, nonswollen and have full range of motion. DIFFERENTIAL DIAGNOSIS: After history and physical exam differential diagnosis was considered for bronchitis, pneumonia, PE and VA. Medical Decision Making Data Points Result Diagram: 05/16/18191205/16/181912 Laboratory Hematology Test 05/16/18 19:13 Red Blood Count 4.10 M/uL (4.17-5.56) Mean Corpuscular Volume 91.7 fL (80.0-96.0) Mean Corpuscular Hemoglobin 32.1 pg (26.0-33.0) Mean Corpuscular Hemoglobin Concent 35.0 g/dL (32.0-36.0) Red Cell Distribution Width 16.2 % (11.5-14.5) Mean Platelet Volume 8.0 fL (7.2-11.1) Neutrophils (%) (Auto) 55.7 % (39.4-72.5) Lymphocytes (%) (Auto) 34.5 % (17.6-49.6) Monocytes (%) (Auto) 8.0 % (4.1-12.4) Eosinophils (%) (Auto) 0.7 % (0.4-6.7) Basophils (%) (Auto) 1.1 % (0.3-1.4) Nucleated RBC Relative Count (auto) 0.0 /100WBC Neutrophils # (Auto) 3.8 K/uL (2.0-7.4) Lymphocytes # (Auto) 2.4 K/uL (1.3-3.6) Monocytes # (Auto) 0.5 K/uL (0.3-1.0) Eosinophils # (Auto) 0.0 K/uL (0.0-0.5) Basophils # (Auto) 0.1 K/uL (0.0-0.1) Nucleated RBC Absolute Count (auto) 0.00 K/uL Sodium Level 137 mmol/L (137-145) Potassium Level 3.8 mmol/L (3.5-5.0) Chloride Level 99 mmol/L (98-107) Carbon Dioxide Level 32 mmol/L (22-31) Blood Urea Nitrogen 11 mg/dl (7-18) Creatinine 0.80 mg/dl (0.52-1.04) Glomerular Filtration Rate Calc > 60.0 Random Glucose 116 mg/dl (75-110) Calcium Level 8.5 mg/dl (8.4-10.2) Total Bilirubin 0.3 mg/dl (0.2-1.3) Aspartate Amino Transf (AST/SGOT) 20 U/L (0-35) Alanine Aminotransferase (ALT/SGPT) 25 U/L (0-56) Alkaline Phosphatase 74 U/L (0-126) Total Protein 6.3 g/dl (6.3-8.2) Albumin 3.5 g/dl (3.5-5.0) Chemistry Test 05/16/18 19:13 White Blood Count 6.8 k/uL (4.5-11.0) Red Blood Count 4.10 M/uL (4.17-5.56) Hemoglobin 13.2 g/dL (12.0-16.0) Hematocrit 37.6 % (34.0-47.0) Mean Corpuscular Volume 91.7 fL (80.0-96.0) Mean Corpuscular Hemoglobin 32.1 pg (26.0-33.0) Mean Corpuscular Hemoglobin Concent 35.0 g/dL (32.0-36.0) Red Cell Distribution Width 16.2 % (11.5-14.5) Platelet Count 197 K/uL (150-450) Mean Platelet Volume 8.0 fL (7.2-11.1) Neutrophils (%) (Auto) 55.7 % (39.4-72.5) Lymphocytes (%) (Auto) 34.5 % (17.6-49.6) Monocytes (%) (Auto) 8.0 % (4.1-12.4) Eosinophils (%) (Auto) 0.7 % (0.4-6.7) Basophils (%) (Auto) 1.1 % (0.3-1.4) Nucleated RBC Relative Count (auto) 0.0 /100WBC Neutrophils # (Auto) 3.8 K/uL (2.0-7.4) Lymphocytes # (Auto) 2.4 K/uL (1.3-3.6) Monocytes # (Auto) 0.5 K/uL (0.3-1.0) Eosinophils # (Auto) 0.0 K/uL (0.0-0.5) Basophils # (Auto) 0.1 K/uL (0.0-0.1) Nucleated RBC Absolute Count (auto) 0.00 K/uL Glomerular Filtration Rate Calc > 60.0 Calcium Level 8.5 mg/dl (8.4-10.2) Total Bilirubin 0.3 mg/dl (0.2-1.3) Aspartate Amino Transf (AST/SGOT) 20 U/L (0-35) Alanine Aminotransferase (ALT/SGPT) 25 U/L (0-56) Alkaline Phosphatase 74 U/L (0-126) Total Protein 6.3 g/dl (6.3-8.2) Albumin 3.5 g/dl (3.5-5.0) ED Course/Re-evaluation Clinical Indication for ER IV: IV Access ED Course The patient was admitted to room. A history of sore obtained. Differential diagnoses were considered. IV was started. A CBC, CMP were obtained. A two-view chest x-ray was negative for any acute cardiopulmonary processes. Lab studies unremarkable. I did review the imaging studies and the lab studies with the patient. However on my exam I did note that she did have some adventitious lung sounds on the left side, I did tell her that although the chest x-ray is not showing any acute processes I would go ahead and continue her treatment for bacterial pneumonia. Since she just finished the azithromycin go ahead and start her on doxycycline tonight a prescription was sent to the patient's pharmacy for the remainder of the doxycycline. The patient was instructed follow -up with her primary care provider, she states she has a follow-up appointment next Sunday. She is encouraged to return to ER for any other concerns or worsening symptoms. Patient is in agreement with his primary care and she was discharged home. Decision to Disposition Date: May 16, 2018 Decision to Disposition Time: 20:37 Depart Departure Latest Vital Signs Vital Signs Date Time Temp Pulse Resp B/P (MAP) Pulse Ox O2 Delivery O2 Flow Rate FiO2 05/16/18 20:50 ??? 05/16/18 20:46 117/65 (82) 05/16/18 20:35 16 05/16/18 20:25 99 Nasal Cannula 2.0 05/16/18 18:45 98.2 Impression: Primary Impression: Pneumonia Condition: Improved Disposition: HOME OR SELF-CARE Referrals: OC PEREZ MD (PCP) New Scripts Doxycycline Hyclate (DOXYCYCLINE HYCLATE) 100 Mg Tablet. 100 MG PO BID, #12 TAB 0 Refills Prov: FELICIANO DAVIS 05/16/18 Patient Instructions: Community Acquired Pneumonia (DC) Additional Instructions: Drink plenty of water. Get plenty of rest. Even though the chest Xray did no show anything concerning, my exam did reveal some adventicious lung sounds on the left side, I will continue treating you for pneumonia with a new antibiotic. Take the Doxycycline as directed. Follow-up with your primary care provider within 2-4 days for reevaluation. Continue using the oxygen as directed. Continue taking your regular medications as prescribed. Return to the emergency department for any other concerns or worsening symptoms. Problem Qualifiers Primary Impression: Pneumonia Pneumonia type: due to unspecified organism Laterality: left Lung location : lower lobe of lung Qualified Codes: J18.1 - Lobar pneumonia, unspecified organism FELICIANO DAVIS- May 16, 2018 18:55
[2018-05-16 19:22] LABS: PLATELET COUNT, AUTOMATED 197 K/uL (150-450)
[2018-05-16] MEDS ORDERED: ALBUTEROL/IPRATROPIUM 3 ML NEB NEB ONE (19:45)
--- NOTE | 2018-05-16 19:47 | RADIOLOGY IMAGING REPORT ---
FACILITY: [facility] PATIENT NAME: Yolanda Olivia : 1965 MR: [id number] V: [id number] EXAM DATE: ORDERING PHYSICIAN: FELICIANO DAVIS TECHNOLOGIST: Location: [facility] [place] Patient: Yolanda Olivia : 1965 Visit/Account:[id number] Date of Sevice: 05/16/2018 2 VIEWS CHEST INDICATION: Pneumonia. Patient feels worse. COMPARISON: 05/12/2018. FINDINGS: Cardiomediastinal silhouette and pulmonary vessels within normal limits. There is no focal infiltrate or lobar consolidation. There is no pneumothorax or pleural effusion. No nodules. Upper abdomen is unremarkable. No acute bony abnormality. Postsurgical changes in lower cervical spin e without sequelae. IMPRESSION: 1. No acute cardiopulmonary process. Report Dictated By: Alonso Patel at 05/16/2018 7:42 PM Report E-Signed By: Alonso Patel at 05/16/2018 7:43 PM WSN:[id number]
[2018-05-16] MEDS ORDERED: DOXY-228 PO (20:15)
[2018-05-16] MEDS ORDERED: DOXYCYCLINE HYCL 100 MG TAB TH PO ONE (20:15)
[2018-05-16 20:46] VITALS: BP 117/65
== END 2018-05-16 20:55 | disposition home or self-care (01) ==
LOC: ER 18:52
DX: J18.1 Lobar pneumonia, unspecified organism (principal)
CPT/HCPCS: 85025; 94640; 99283; J7620; 71046; 82040; 82247; 82310; 82374; 82435; 82565; 82947; 84075; 84132; 84155; 84295; 84450; 84460; 84520

== ENCOUNTER 2018-05-27 14:33 | Emergency (ER) | payer MEDICARE, MEDICAID ==
[2018-04-16 08:17] VITALS: Wt 119.3 kg
[~2018-05-27 14:33] MED LIST changes: +DOXY-228 PO
--- NOTE | 2018-05-27 15:11 | ER Report ---
History and Physical Time Seen By MD: 15:10 HPI/ROS CHIEF COMPLAINT: Cough and chest pain HISTORY OF PRESENT ILLNESS: This is a 53-year-old male who presents to the emergency department for a persistent cough and chest pain. Patient has been seen and evaluated in the emergency department 2 times within the last month given 2 different antibiotics and no improvement of the cough and chest pain. She was on azithromycin and doxycycline. Patient just finished the last course of the doxycycline, was following up with her primary care provider down at the [facility] and with no real improvement of the cough and a chest discomfort the patient was sent to the emergency department for reevaluation. The patient is anxious and nervous. Patient states she's had increased shortness of breath when she is ambulating up the stairs even with her continuous oxygen. She denies nausea or vomiting. She has had aches and chills no fevers. Patient is also recently quit smoking approximately one week ago. REVIEW OF SYSTEMS: Constitutional: As above. Eyes: No discharge. ENT: No sore throat. Cardiovascular: As above. Respiratory: As above. Gastrointestinal: No abdominal pain, no vomiting. Genitourinary: No hematuria. Musculoskeletal: No back pain. Skin: No rashes. Neurological: No headache. Allergies: Coded Allergies: codeine (Verified Allergy, Severe, ANAPHYLAXIS, 03/22/18) oxycodone (Verified Allergy, Mild, AIRWAY OBSTRUCTION, 03/22/18) Home Meds Active Scripts Albuterol Sulfate 0.083% (ALBUTEROL SULFATE 0.083%) 2.5 Mg/3 Ml Vial.neb, 2.5 MG INH Q4-6H Y for SHORTNESS OF BREATH, #20 VIAL 0 Refills Prov:FELICIANO [facility]IS [facility] 05/27/18 Doxycycline Hyclate (DOXYCYCLINE HYCLATE) 100 Mg Tablet.dr, 100 MG PO BID, #12 TAB 0 Refills Prov:FELICIANO [facility] 05/16/18 Reported Medications Venlafaxine Hcl (VENLAFAXINE HCL ER) 75 Mg Cap.er.24h, 75 MG PO QDAY 05/12/18 Clonidine HCl (Clonidine HCl ER) 0.1 Mg Tab.er.12h, 0.2 MG PO 05/12/18 Ondansetron Hcl (ZOFRAN) 4 Mg Tablet, 4 MG PO Q6H Y for NAUSEA, #30 TAB 04/09/18 Metformin HCl (Metformin HCl ER) 500 Mg [id number], 1 TAB PO DAILY 04/02/18 Lamotrigine (LAMOTRIGINE) 200 Mg Tab.er.24, 200 MG PO HS 04/02/18 Furosemide (LASIX) 40 Mg Tablet, 1 TAB PO QDAY, TAB 02/26/18 Ondansetron Hcl (ZOFRAN) 4 Mg Tablet, 8 MG PO QHS Y for NAUSEA, TAB 01/29/18 Omeprazole (OMEPRAZOLE) 40 Mg Capsule.dr, 40 MG PO QDAY, CAP 01/28/18 Albuterol Sulfate 90 Mcg/Act (PROAIR HFA 90 MCG/ACT) 8.5 Gm Hfa.aer.ad, 2 PUFF IH QID, INHALER 01/28/18 Simvastatin (ZOCOR) 10 Mg Tablet, 10 MG PO DAILY, TAB 01/28/18 Fluticasone/Salmeterol (ADVAIR 100-50 DISKUS) 1 Each Disk.w.dev, 1 EACH IH BID 01/28/18 Hydroxyzine Hcl (HYDROXYZINE HCL) 25 Mg Tablet, 2 TAB PO QID 11/25/16 Gabapentin (GABAPENTIN) 600 Mg Tablet, 1 TAB PO QID, #9 MG 0 Refills TAKE ONE CAPSULE BY MOUTH FOUR TIMES A DAY 10/05/13 Hx Smoking: Yes (4-6 CIGARETTES A DAY) Smoking Status: Current: Every Day Smoker Exposure to Second Hand Smoke?: Yes Hx Substance Use Disorder: No Hx Alcohol Use: No Constitutional Vital Sign - Last 24 Hours 05/27/18 05/27/18 05/27/18 05/27/18 14:35 14:35 15:07 15:30 Temp 98.7 Pulse 73 Resp 11 B/P (MAP) 138/67 (90) 125/91 (102) Pulse Ox 97 O2 Flow Rate 2.0 05/27/18 05/27/18 05/27/18 05/27/18 16:30 16:50 17:30 18:00 Pulse 71 85 83 Resp 21 10 6 B/P (MAP) 126/73 (90) 132/72 (92) 127/63 (84) Pulse Ox 100 100 98 98 O2 Delivery Nasal Cannula O2 Flow Rate 3.0 Intake and Output 05/27/18 05/27/18 05/28/18 15:00 23:00 07:00 Intake Total 500 ml Balance 500 ml Physical Exam General Appearance: The patient is alert, has no immediate need for airway protection and no signs of toxicity, appears anxious. Eyes: Pupils equal and round no pallor or injection. ENT, Mouth: Mucous membranes are moist, mild erythema to the posterior oropharynx. Respiratory: There are no retractions, lungs are clear to auscultation. Cardiovascular: Regular rate and rhythm, no murmurs, clicks or rubs. Gastrointestinal: Abdomen is soft and non tender, no masses, bowel sounds normal. Neurological: Alert and oriented 4. Moving all extremities. Following all commands. No focal neuro deficits. Skin: Warm and dry, no rashes. Musculoskeletal: Neck is supple non tender. Extremities are nontender, nonswollen and have full range of motion. DIFFERENTIAL DIAGNOSIS: After history and physical exam differential diagnosis was considered for shortness of breath including but not limited to pulmonary infectious process, COPD, asthma, pulmonary embolus and congestive heart failure. Medical Decision Making Data Points Result Diagram: 05/27/18 1535 05/27/18 1535 Laboratory Hematology Test 05/27/18 15:35 Red Blood Count 4.24 M/uL (4.17-5.56) Mean Corpuscular Volume 92.3 fL (80.0-96.0) Mean Corpuscular Hemoglobin 32.2 pg (26.0-33.0) Mean Corpuscular Hemoglobin Concent 34.8 g/dL (32.0-36.0) Red Cell Distribution Width 16.7 % (11.5-14.5) Mean Platelet Volume 8.1 fL (7.2-11.1) Neutrophils (%) (Auto) 62.5 % (39.4-72.5) Lymphocytes (%) (Auto) 26.9 % (17.6-49.6) Monocytes (%) (Auto) 9.6 % (4.1-12.4) Eosinophils (%) (Auto) 0.1 % (0.4-6.7) Basophils (%) (Auto) 0.9 % (0.3-1.4) Nucleated RBC Relative Count (auto) 0.1 /100WBC Neutrophils # (Auto) 5.2 K/uL (2.0-7.4) Lymphocytes # (Auto) 2.2 K/uL (1.3-3.6) Monocytes # (Auto) 0.8 K/uL (0.3-1.0) Eosinophils # (Auto) 0.0 K/uL (0.0-0.5) Basophils # (Auto) 0.1 K/uL (0.0-0.1) Nucleated RBC Absolute Count (auto) 0.01 K/uL Sodium Level 137 mmol/L (137-145) Potassium Level 3.6 mmol/L (3.5-5.0) Chloride Level 102 mmol/L (98-107) Carbon Dioxide Level 25 mmol/L (22-31) Blood Urea Nitrogen 14 mg/dl (7-18) Creatinine 0.80 mg/dl (0.52-1.04) Glomerular Filtration Rate Calc > 60.0 Random Glucose 111 mg/dl (75-110) Calcium Level 8.9 mg/dl (8.4-10.2) Total Bilirubin 0.5 mg/dl (0.2-1.3) Aspartate Amino Transf (AST/SGOT) 18 U/L (0-35) Alanine Aminotransferase (ALT/SGPT) 26 U/L (0-56) Alkaline Phosphatase 78 U/L (0-126) Troponin I < 0.012 ng/ml B-Type Natriuretic Peptide 105 pg/ml (0-100) Total Protein 6.7 g/dl (6.3-8.2) Albumin 3.7 g/dl (3.5-5.0) Chemistry Test 05/27/18 15:35 White Blood Count 8.3 k/uL (4.5-11.0) Red Blood Count 4.24 M/uL (4.17-5.56) Hemoglobin 13.6 g/dL (12.0-16.0) Hematocrit 39.1 % (34.0-47.0) Mean Corpuscular Volume 92.3 fL (80.0-96.0) Mean Corpuscular Hemoglobin 32.2 pg (26.0-33.0) Mean Corpuscular Hemoglobin Concent 34.8 g/dL (32.0-36.0) Red Cell Distribution Width 16.7 % (11.5-14.5) Platelet Count 225 K/uL (150-450) Mean Platelet Volume 8.1 fL (7.2-11.1) Neutrophils (%) (Auto) 62.5 % (39.4-72.5) Lymphocytes (%) (Auto) 26.9 % (17.6-49.6) Monocytes (%) (Auto) 9.6 % (4.1-12.4) Eosinophils (%) (Auto) 0.1 % (0.4-6.7) Basophils (%) (Auto) 0.9 % (0.3-1.4) Nucleated RBC Relative Count (auto) 0.1 /100WBC Neutrophils # (Auto) 5.2 K/uL (2.0-7.4) Lymphocytes # (Auto) 2.2 K/uL (1.3-3.6) Monocytes # (Auto) 0.8 K/uL (0.3-1.0) Eosinophils # (Auto) 0.0 K/uL (0.0-0.5) Basophils # (Auto) 0.1 K/uL (0.0-0.1) Nucleated RBC Absolute Count (auto) 0.01 K/uL Glomerular Filtration Rate Calc > 60.0 Calcium Level 8.9 mg/dl (8.4-10.2) Total Bilirubin 0.5 mg/dl (0.2-1.3) Aspartate Amino Transf (AST/SGOT) 18 U/L (0-35) Alanine Aminotransferase (ALT/SGPT) 26 U/L (0-56) Alkaline Phosphatase 78 U/L (0-126) Troponin I < 0.012 ng/ml B-Type Natriuretic Peptide 105 pg/ml (0-100) Total Protein 6.7 g/dl (6.3-8.2) Albumin 3.7 g/dl (3.5-5.0) EKG/Imaging EKG Interpretation 12 lead EKG: Time of EKG 1532. Rhythm: Normal sinus rhythm, ventricular rate 66 bpm. [place]: normal QRS: normal ST segments: No ST depression or elevation identified. [ ] Imaging Location: [facility] [place] Patient: Yolanda Olivia : 1965 Visit/Account:[id number] Date of Sevice: 05/27/2018 EXAMINATION: CT CHEST PULMONARY ANGIOGRAM COMPARISON: Chest x-ray 05/16/2018 and earlier. HISTORY: Chest pressure and persistent cough. PROCEDURE: Pulmonary arterial phase imaging of the chest with 100 mL intravenous Isovue 370. Reconstruction of the source data set includes multiplanar 2D in the sagittal and coronal planes, and 3D reconstructed coronal slab MIP series. One of the following dose optimization techniques was utilized in the performance of this exam: Automated exposure control; adjustment of the mA and/ or kV according to the patient's size; or use of an iterative reconstruction technique. Specific details can be referenced in the facility's radiology CT exam operational policy. FINDINGS: Pulmonary vasculature: There is good contrast opacification of the pulmonary arterial system. No pulmonary embolism. Main pulmonary artery size is normal. Cardiac and mediastinum: Cardiac chamber size is within normal limits. No pericardial effusion. Mild coronary calcifications. No thoracic aortic aneurysm or dissection. No thoracic lymph node enlargement. Lungs and pleura: No consolidation or nodule. No pneumothorax, edema, or effusion. Airways: Negative. 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 No gastric distention. Cholecystectomy. Osseous structures: Incompletely visualized cervical spine fusion. Moderate degenerative disc disease in the lower thoracic spine. No acute findings. IMPRESSION: 1. No pulmonary embolism or evidence of acute cardiopulmonary disease. 2. Mild coronary calcifications. 3. 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 Report Dictated By: Ariel Peterson MD at 05/27/2018 4:34 PM Report E-Signed By: Ariel Peterson MD at 05/27/2018 4:40 PM [id number] ED Course/Re-evaluation Clinical Indication for ER IV: Hydration, IV Access ED Course The patient was admitted to room. A history and physical were obtained. Differential diagnoses were considered. An IV was started. A CBC, CMP were obtained. CBC and chemistry unremarkable. Negative troponin and slight elevation in BNP. EKG showing normal sinus rhythm. A CT of the chest was negative for pulmonary embolus or infectious process. 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 I did review the laboratory studies and the CT results with the patient. The patient was relieved. She does understand that the discomfort she's been feeling in her chest is likely from the gastric bypass surgery, she does have a follow-up exam arty schedule the end of May with gastric bypass specialist in [place]. I did to the patient that at this time there is no need for starting antibiotics. Patient was relieved.Patient was given a 500 mL normal saline bolus, 4 mg IV morphine, 4 mg IV Zofran and a DuoNeb. Patient states feeling significantly better after the DuoNeb. I did send the patient home with prescription for a nebulizer and albuterol. I did tell the patient that I want her to follow up with her primary care provider within the next 2-4 days for reevaluation. Patient was in agreement with this plan of care and discharged home. She was also instructed to return to the emergency department for any other concerns or worsening symptoms. 05/27/2018 4:26:21 pm I did review the results with the patient. I did tell her that I'm waiting on the chest CT. I also told patient at this time for ahead and give her a DuoNeb patient is in agreement with this. Decision to Disposition Date: May 27, 2018 Decision to Disposition Time: 17:57 Depart Departure Latest Vital Signs Vital Signs Date Time Temp Pulse Resp B/P (MAP) Pulse Ox O2 Delivery O2 Flow Rate FiO2 05/27/18 18:00 83 6 127/63 (84) 98 05/27/18 16:50 Nasal Cannula 3.0 05/27/18 14:35 98.7 Impression: Primary Impression: Cough Additional Impression: Chest pain Condition: Improved Disposition: HOME OR SELF-CARE Referrals: OC PEREZ MD (PCP) New Scripts Albuterol Sulfate 0.083% (ALBUTEROL SULFATE 0.083%) 2.5 Mg/3 Ml Vial.neb 2.5 MG INH Q4-6H Y for SHORTNESS OF BREATH, #20 VIAL 0 Refills Prov: FELICIANO DAVIS [employer]-BC 05/27/18 Departure Forms: ER Transition Record, Home Oxygen, Nebulizer RX, Home Oxygen Company Chosen by Patient: [employer] [facility]-Oxygen: Nebulizer Reason for Use/Diagnosis: Productive cough, shortness of breath. Start Date of the Order: May 27, 2018 Duration Home O2 Required: 30 Duration Units: Days ER Prescribing Physician's Name: Other NPI Numbers for Local ER MDs: Other Medications Reconciliation, Patient Portal Information Patient Instructions: Acute Cough (ED), Chest Pain (ED) Additional Instructions: Your chest pain appears to be originating from Catherine-en-Y gastric bypass that has herniated above your diaphragm, keep your appointment with the bariatric specialist in [place], end of May. Your chest pain is not cardiac related based on findings today. The cough is likely continue as you continue your cessation from smoking, please keep up the good work. There is no need for additional antibiotics. Follow up with your PCP. Return to the ED for any other concerns or worsening symptoms. Use the nebulizer as needed for cough and shortness of breath. Problem Qualifiers Additional Impression: Chest pain Chest pain type: unspecified Qualified Codes: R07.9 - Chest pain, unspecified FELICIANO DAVIS-ANTHONY May 27, 2018 15:11
[2018-05-27] MEDS ORDERED: NS(*) 0.9% 500 ML BAG 500 ML IV ONE (15:21)
--- NOTE | 2018-05-27 15:37 | EKG ---
FACILITY: [facility] [place] PATIENT NAME: WILFREDO IZQUIERDO : [id number] MR: [id number] V: [id number] EXAM DATE: ORDERING PHYSICIAN: FELICIANO DAVIS TECHNOLOGIST: JOHNNIE Keen Reason : CHEST PAIN Blood Pressure : / mmHG Vent. Rate : 066 BPM Atrial Rate : 066 BPM P-R Int : 116 ms QRS Dur : 086 ms QT Int : 432 ms P-R-T Axes : 037 006 023 degrees QTc Int : 452 ms Normal sinus rhythm Normal ECG When compared with ECG of 14-MAR-2018 08:48, T wave inversion now evident in Inferior leads Confirmed by TAWNY FRAUSTO ([id number]) on 05/27/2018 5:25:16 PM Referred By: Confirmed By:TAWNY FRAUSTO
[2018-05-27] MEDS ORDERED: NS 0.9% 25 ML BAG 50 ML ONE (15:40)
[2018-05-27] MEDS ORDERED: IOPAMIDOL 76% 100 ML INFUS BTL 100 ML ONE (15:40)
[2018-05-27 15:48] LABS: PLATELET COUNT, AUTOMATED 225 K/uL (150-450)
[2018-05-27] MEDS ORDERED: ALBUTEROL/IPRATROPIUM 3 ML NEB NEB ONE (16:30)
--- NOTE | 2018-05-27 16:43 | RADIOLOGY IMAGING REPORT ---
FACILITY: [facility] PATIENT NAME: Yolanda Olivia : 1965 MR: [id number] V: [id number] EXAM DATE: ORDERING PHYSICIAN: FELICIANO DAVIS TECHNOLOGIST: Location: [facility] Patient: Yolanda Olivia : 1965 Visit/Account:[id number] Date of Sevice: 05/27/2018 EXAMINATION: CT CHEST PULMONARY ANGIOGRAM COMPARISON: Chest x-ray 05/16/2018 and earlier. HISTORY: Chest pressure and persistent cough. PROCEDURE: Pulmonary arterial phase imaging of the chest with 100 mL intravenous Isovue 370. Reconstr uction of the source data set includes multiplanar 2D in the sagittal and coronal planes, and 3D roberto nstructed coronal slab MIP series. One of the following dose optimization techniques was utilized in the performance of this exam: Autom ated exposure control; adjustment of the mA and/or kV according to the patient's size; or use of an i terative reconstruction technique. Specific details can be referenced in the facility's radiology C T exam operational policy. FINDINGS: Pulmonary vasculature: There is good contrast opacification of the pulmonary arterial system. No pul monary embolism. Main pulmonary artery size is normal. Cardiac and mediastinum: Cardiac chamber size is within normal limits. No pericardial effusion. Mild coronary calcifications. No thoracic aortic aneurysm or dissection. No thoracic lymph node enlargemen t. Lungs and pleura: No consolidation or nodule. No pneumothorax, edema, or effusion. Airways: Negative. 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 No gastric distention. Cholecystectomy. Osseous structures: Incompletely visualized cervical spine fusion. Moderate degenerative disc disease in the lower thoracic spine. No acute findings. IMPRESSION: 1. No pulmonary embolism or evidence of acute cardiopulmonary disease. 2. Mild coronary calcifications. 3. Catherine-en-Y gastric bypass. The gastric pouch and gastrojejunostomy have herniated above the diaphra gm. Report Dictated By: Ariel Peterson MD at 05/27/2018 4:34 PM Report E-Signed By: Ariel Peterson MD at 05/27/2018 4:40 PM [id number]
[2018-05-27] MEDS ORDERED: ONDANSETRON 4 MG/2 ML VIAL IVP ONE (16:45)
[2018-05-27] MEDS ORDERED: MORPHINE 4 MG/ML SDV IVP ONE (16:45)
[2018-05-27 18:00] VITALS: BP 127/63
[2018-05-27] MEDS ORDERED: ALBU2.5V36 INH (18:01)
== END 2018-05-27 18:05 | disposition home or self-care (01) ==
LOC: ER 15:09
DX: R05 Cough (principal); R07.9 Chest pain, unspecified; R06.02 Shortness of breath
CPT/HCPCS: 71275; 83880; 84484; 85025; 93005; 94640; 96374; 96375; 99284; J2270; J2405; J7040; J7620; Q9967; 82040; 82247; 82310; 82374; 82435; 82565; 82947; 84075; 84132; 84155; 84295; 84450; 84460; 84520

== ENCOUNTER → 2018-06-06 | Outpatient (CLI) | payer MEDICARE, MEDICAID ==
[2018-04-16 08:17] VITALS: BMI 47.0
[~2018-06-06] MED LIST changes: +ALBU2.5V36 INH
== END ==
LOC: LAB 07:36
PROVIDERS: ATTEND Family Medicine
DX: R73.9 Hyperglycemia, unspecified (principal); R60.0 Localized edema
CPT/HCPCS: 36415; 82040; 82247; 82310; 82374; 82435; 82565; 82947; 82951; 82952; 84075; 84132; 84155; 84295; 84450; 84460; 84520

== ENCOUNTER → 2018-06-15 | Outpatient (CLI) | payer MEDICARE, MEDICAID ==
[2018-04-16 08:17] VITALS: BMI 47.0
== END ==
LOC: RESP 20:01
PROVIDERS: ATTEND Otolaryngology
DX: G47.33 Obstructive sleep apnea (adult) (pediatric) (principal); G47.36 Sleep related hypoventilation in conditions classified elsewhere

== ENCOUNTER → 2018-06-26 | Outpatient (CLI) | payer MEDICARE, MEDICAID ==
[2018-04-16 08:17] VITALS: BMI 47.0
== END ==
LOC: LAB 07:28
PROVIDERS: ATTEND Nurse Practitioner Family
DX: E53.8 Deficiency of other specified B group vitamins (principal); R73.01 Impaired fasting glucose; E78.5 Hyperlipidemia, unspecified
CPT/HCPCS: 36415; 82465; 82607; 83718; 84478

== ENCOUNTER → 2018-06-26 | Outpatient (CLI) | payer MEDICARE, MEDICAID ==
[2018-04-16 08:17] VITALS: BMI 47.0
[2018-06-26 13:36] LABS: PLATELET COUNT, AUTOMATED 226 K/uL (150-450)
== END ==
LOC: LAB 07:33
PROVIDERS: ATTEND Family Medicine
DX: G62.9 Polyneuropathy, unspecified (principal); R60.0 Localized edema; R73.9 Hyperglycemia, unspecified; J44.9 Chronic obstructive pulmonary disease, unspecified; Z79.899 Other long term (current) drug therapy; E53.8 Deficiency of other specified B group vitamins; Z98.84 Bariatric surgery status; Z68.43 Body mass index [BMI] 50.0-59.9, adult; F32.9 Major depressive disorder, single episode, unspecified; D64.9 Anemia, unspecified
CPT/HCPCS: 82040; 82247; 82306; 82310; 82374; 82435; 82565; 82728; 82947; 83036; 83540; 84075; 84132; 84155; 84295; 84425; 84443; 84450; 84460; 84520; 85025

== ENCOUNTER 2018-07-01 23:23 | Emergency (ER) | payer MEDICARE, MEDICAID ==
[2018-04-16 08:17] VITALS: Wt 126.6 kg
[2018-07-01 23:35] VITALS: BP 136/58
[2018-07-01] MEDS ORDERED: BUDE10.25 IH (23:40)
--- NOTE | 2018-07-01 23:45 | ER Report ---
History and Physical Time Seen By MD: 23:46 Hx. of Stated Complaint: PT REPORTS SWELLING IN LE'S AND CHEST TIGHTNESS. PT DID NOT TAKE HER LASIX TODAY. HPI/ROS CHIEF COMPLAINT: swelling and chest tightness HISTORY OF PRESENT ILLNESS: This is a 53 year old female. She is having some tightness in chest and both legs. Is concerned that her Lasix is not working well. She increased to 80mg daily. Seems to make her urinate for about 1 hour, then stops. Not eating or drinking well because of a hernia with her gastric bypass. Has schedule to see Dr. Encarnacion in [place] for further evaluation. Tries to drink fluids, but ends up vomiting most of it. No fever or chills. No pain with deep breaths and feels a little short of breath with laying down, but doing okay in an upright position Allergies: Coded Allergies: codeine (Verified Allergy, Severe, ANAPHYLAXIS, 07/01/18) oxycodone (Verified Allergy, Mild, AIRWAY OBSTRUCTION, 07/01/18) Home Meds Active Scripts Ondansetron (ZOFRAN ODT) 4 Mg Tab.rapdis, 4 MG PO Q6H PRN for NAUSEA/VOMITING, #20 TAB.MALLIKA 0 Refills Prov:ALEX MAYA MD 07/02/18 Albuterol Sulfate 0.083% (ALBUTEROL SULFATE 0.083%) 2.5 Mg/3 Ml Vial.neb, 2.5 MG INH Q4-6H PRN for SHORTNESS OF BREATH, #20 VIAL 0 Refills Prov:FELICIANO DAVIS [employer] 05/27/18 Reported Medications Cyclobenzaprine Hcl (CYCLOBENZAPRINE HCL) 10 Mg Tablet, 5 MG PO PRN, #9 TAB 07/02/18 Varenicline Tartrate (CHANTIX) 1 Mg Tablet, 1 MG PO BID 07/02/18 Omeprazole (OMEPRAZOLE) 20 Mg Capsule.dr, 1 CAP PO QAM, CAP 07/02/18 Nortriptyline Hcl (NORTRIPTYLINE HCL) 50 Mg Capsule, 50-100 MG PO HS, CAPSULE 07/02/18 Hydrochlorothiazide (HYDROCHLOROTHIAZIDE) 25 Mg Tablet, 1 TAB PO QAM, TAB 07/02/18 Furosemide (LASIX) 80 Mg Tablet, 1 TAB PO QAM, TAB 07/02/18 Budesonide/Formoterol Fumarate (SYMBICORT 80-4.5 MCG INHALER) 10.2 Gm Hfa.aer.ad, 10.2 GM IH BID 07/01/18 Venlafaxine Hcl (VENLAFAXINE HCL ER) 75 Mg Cap.er.24h, 75 MG PO QDAY 05/12/18 Clonidine HCl (Clonidine HCl ER) 0.1 Mg Tab.er.12h, 0.2 MG PO 05/12/18 Metformin HCl (Metformin HCl ER) 500 Mg [id number], 1 TAB PO DAILY 04/02/18 Lamotrigine (LAMOTRIGINE) 200 Mg Tab.er.24, 200 MG PO HS 04/02/18 Albuterol Sulfate 90 Mcg/Act (PROAIR HFA 90 MCG/ACT) 8.5 Gm Hfa.aer.ad, 2 PUFF IH QID, INHALER 01/28/18 Simvastatin (ZOCOR) 10 Mg Tablet, 10 MG PO DAILY, TAB 01/28/18 Fluticasone/Salmeterol (ADVAIR 100-50 DISKUS) 1 Each Disk.w.dev, 1 EACH IH BID 01/28/18 Hydroxyzine Hcl (HYDROXYZINE HCL) 25 Mg Tablet, 2 TAB PO QID 11/25/16 Discontinued Reported Medications Ondansetron Hcl (ZOFRAN) 4 Mg Tablet, 4 MG PO Q6H PRN for NAUSEA, #30 TAB 04/09/18 Furosemide (LASIX) 40 Mg Tablet, 1 TAB PO QDAY, TAB 02/26/18 Ondansetron Hcl (ZOFRAN) 4 Mg Tablet, 8 MG PO QHS PRN for NAUSEA, TAB 01/29/18 Omeprazole (OMEPRAZOLE) 40 Mg Capsule.dr, 40 MG PO QDAY, CAP 01/28/18 Gabapentin (GABAPENTIN) 600 Mg Tablet, 1 TAB PO QID, #9 MG 0 Refills TAKE ONE CAPSULE BY MOUTH FOUR TIMES A DAY 10/05/13 Discontinued Scripts Doxycycline Hyclate (DOXYCYCLINE HYCLATE) 100 Mg Tablet.dr, 100 MG PO BID, #12 TAB 0 Refills Prov:FELICIANO DAVIS [employer]-BC 05/16/18 Reviewed Nurses Notes: Yes Hx Smoking: Yes (4-6 CIGARETTES A DAY) Smoking Status: Current: Every Day Smoker Exposure to Second Hand Smoke?: Yes Hx Substance Use Disorder: No Hx Alcohol Use: No Constitutional Vital Sign - Last 24 Hours 07/01/18 07/01/18 07/01/18 07/01/18 23:33 23:35 23:38 23:53 Temp 98.2 Pulse 77 76 74 Resp 18 17 21 B/P (MAP) 136/58 (84) 136/58 Pulse Ox 97 97 94 O2 Delivery Room Air 07/02/18 07/02/18 07/02/18 07/02/18 00:08 00:23 00:38 01:23 Pulse 82 83 69 74 Resp 33 53 20 Pulse Ox 92 93 95 07/02/18 07/02/18 07/02/18 01:28 01:58 02:13 Pulse 74 76 79 Resp 10 Pulse Ox 95 93 93 Physical Exam General Appearance: The patient is alert. No acute distress. Eyes: Pupils are equal, round. No pallor, injection or icterus. ENT: Mucous membranes are moist. Normal oral mucosa. Posterior oropharynx is normal. Tympanic membranes and canals normal bilaterally. Neck: Supple and non tender. Respiratory: Lungs are clear to auscultation. There are no retractions or accessory muscle use. Cardiovascular: Regular rate and rhythm. No murmurs, gallops or rubs. Normal capillary refill. Some swelling of the legs but no pitting edema. Symmetric bilateral. Gastrointestinal: Abdomen is soft and non tender. Nondistended. Normal active bowel sounds. Neurological: Alert and oriented x3. Skin: Warm and dry. No rashes. Musculoskeletal: Extremities are have some diffuse tenderness to palpation bilateral. This is equal bilateral. DIFFERENTIAL DIAGNOSIS: After history and physical exam, differential diagnosis was considered for patient with some chest pressure, feeling like her diuretic is not working well. Also with some swelling but this is not clearly pitting edema. Medical Decision Making Data Points Result Diagram: 07/01/18 0030 07/01/18 0030 Laboratory Hematology Test 07/01/18 00:30 Red Blood Count 4.12 M/uL (4.17-5.56) Mean Corpuscular Volume 93.7 fL (80.0-96.0) Mean Corpuscular Hemoglobin 32.0 pg (26.0-33.0) Mean Corpuscular Hemoglobin Concent 34.2 g/dL (32.0-36.0) Red Cell Distribution Width 14.1 % (11.5-14.5) Mean Platelet Volume 8.6 fL (7.2-11.1) Neutrophils (%) (Auto) 56.6 % (39.4-72.5) Lymphocytes (%) (Auto) 34.6 % (17.6-49.6) Monocytes (%) (Auto) 8.2 % (4.1-12.4) Eosinophils (%) (Auto) 0.0 % (0.4-6.7) Basophils (%) (Auto) 0.6 % (0.3-1.4) Nucleated RBC Relative Count (auto) 0.0 /100WBC Neutrophils # (Auto) 4.5 K/uL (2.0-7.4) Lymphocytes # (Auto) 2.7 K/uL (1.3-3.6) Monocytes # (Auto) 0.7 K/uL (0.3-1.0) Eosinophils # (Auto) 0.0 K/uL (0.0-0.5) Basophils # (Auto) 0.0 K/uL (0.0-0.1) Nucleated RBC Absolute Count (auto) 0.00 K/uL Sodium Level 139 mmol/L (137-145) Potassium Level 3.8 mmol/L (3.5-5.0) Chloride Level 102 mmol/L (98-107) Carbon Dioxide Level 27 mmol/L (22-31) Blood Urea Nitrogen 18 mg/dl (7-18) Creatinine 0.80 mg/dl (0.52-1.04) Glomerular Filtration Rate Calc > 60.0 Random Glucose 94 mg/dl (75-110) Calcium Level 8.7 mg/dl (8.4-10.2) Total Bilirubin 0.3 mg/dl (0.2-1.3) Aspartate Amino Transf (AST/SGOT) 17 U/L (0-35) Alanine Aminotransferase (ALT/SGPT) 19 U/L (0-56) Alkaline Phosphatase 83 U/L (0-126) Troponin I < 0.012 ng/ml B-Type Natriuretic Peptide 23 pg/ml (0-100) Total Protein 7.0 g/dl (6.3-8.2) Albumin 4.0 g/dl (3.5-5.0) Chemistry Test 07/01/18 00:30 White Blood Count 7.9 k/uL (4.5-11.0) Red Blood Count 4.12 M/uL (4.17-5.56) Hemoglobin 13.2 g/dL (12.0-16.0) Hematocrit 38.6 % (34.0-47.0) Mean Corpuscular Volume 93.7 fL (80.0-96.0) Mean Corpuscular Hemoglobin 32.0 pg (26.0-33.0) Mean Corpuscular Hemoglobin Concent 34.2 g/dL (32.0-36.0) Red Cell Distribution Width 14.1 % (11.5-14.5) Platelet Count 217 K/uL (150-450) Mean Platelet Volume 8.6 fL (7.2-11.1) Neutrophils (%) (Auto) 56.6 % (39.4-72.5) Lymphocytes (%) (Auto) 34.6 % (17.6-49.6) Monocytes (%) (Auto) 8.2 % (4.1-12.4) Eosinophils (%) (Auto) 0.0 % (0.4-6.7) Basophils (%) (Auto) 0.6 % (0.3-1.4) Nucleated RBC Relative Count (auto) 0.0 /100WBC Neutrophils # (Auto) 4.5 K/uL (2.0-7.4) Lymphocytes # (Auto) 2.7 K/uL (1.3-3.6) Monocytes # (Auto) 0.7 K/uL (0.3-1.0) Eosinophils # (Auto) 0.0 K/uL (0.0-0.5) Basophils # (Auto) 0.0 K/uL (0.0-0.1) Nucleated RBC Absolute Count (auto) 0.00 K/uL Glomerular Filtration Rate Calc > 60.0 Calcium Level 8.7 mg/dl (8.4-10.2) Total Bilirubin 0.3 mg/dl (0.2-1.3) Aspartate Amino Transf (AST/SGOT) 17 U/L (0-35) Alanine Aminotransferase (ALT/SGPT) 19 U/L (0-56) Alkaline Phosphatase 83 U/L (0-126) Troponin I < 0.012 ng/ml B-Type Natriuretic Peptide 23 pg/ml (0-100) Total Protein 7.0 g/dl (6.3-8.2) Albumin 4.0 g/dl (3.5-5.0) EKG/Imaging EKG Interpretation 12 lead EKG: Rhythm: Normal sinus rhythm, rate 74 [place]: normal QRS: normal ST segments: normal Imaging CHEST SINGLE AP Indication: Chest pain. Comparison: 05/16/2018 Findings: The lungs are clear. No pneumothorax or pleural effusion. Heart size is normal. There has been prior cervical fusion procedure which is incompletely evaluated. IMPRESSION: 1. No acute cardiopulmonary process. Report Dictated By: Luisito Castrejon at 07/02/2018 1:41 AM ED Course/Re-evaluation Clinical Indication for ER IV: Hydration, IV Access ED Course Labs unremarkable, appears to be a little prerenal with BUN/creatinine ratio elevated. We did give her a dose of Lasix since urinated a little bit. Nothing the main problem is that she is nauseated from her hernia and not drinking much. I think that some Zofran will help her nausea, improved fluid intake, and improv ed fluid balance. Chest x-ray looks good as well. EKG without changes. Recommended follow-up with Dr. Encarnacion as planned. Decision to Disposition Date: Jul 02, 2018 Decision to Disposition Time: 02:30 Depart Departure Latest Vital Signs Vital Signs Date Time Temp Pulse Resp B/P (MAP) Pulse Ox O2 Delivery O2 Flow Rate FiO2 07/02/18 02:13 79 93 07/02/18 01:28 10 07/01/18 23:35 98.2 136/58 Room Air Impression: Primary Impression: Chest discomfort Additional Impressions: Abdominal hernia Nausea & vomiting Condition: Improved Disposition: HOME OR SELF-CARE Referrals: OC PEREZ MD (PCP) New Scripts Ondansetron (ZOFRAN ODT) 4 Mg Tab.rapdis 4 MG PO Q6H PRN for NAUSEA/VOMITING, #20 TAB.MALLIKA 0 Refills Prov: ALEX MAYA MD 07/02/18 Additional Instructions: Follow-up with Dr. Encarnacion as planned. Keep taking your Lasix. Take Zofran 4mg, one every 6 hours as needed for nausea or vomiting. Work on increasing fluid intake. No sign of increased heart failure at this time. Problem Qualifiers Additional Impressions: Abdominal hernia Hernia type: other abdominal hernia Obstruction and gangrene presence: without obstruction or gangrene Qualified Codes: K45.8 - Other specified abdominal hernia without obstruction or gangrene Nausea & vomiting Vomiting type: unspecified Vomiting Intractability: non-intractable Qualified Codes: R11.2 - Nausea with vomiting, unspecified ALEX MAYA MD Jul 01, 2018 23:45
[2018-07-01] MEDS ORDERED: ASPIRIN 81 MG CHEW PO ONE (23:55)
[2018-07-01] MEDS ORDERED: FUROSEMIDE 40 MG/4 ML VIAL IVP ONE (23:55)
[2018-07-02 00:55] LABS: PLATELET COUNT, AUTOMATED 217 K/uL (150-450)
--- NOTE | 2018-07-02 01:46 | RADIOLOGY IMAGING REPORT ---
[place] [facility] [place] Yolanda Olivia : 1965 MR: [id number] V: [id number] EXAM DATE: ORDERING PHYSICIAN: ALEX MAYA TECHNOLOGIST: Location: [facility] Patient: Yolanda Olivia : 1965 Visit/Account:[id number] Date of Sevice: 07/01/2018 CHEST SINGLE AP Indication: Chest pain. Comparison: 05/16/2018 Findings: The lungs are clear. No pneumothorax or pleural effusion. Heart size is normal. There has been prior cervical fusion procedure which is incompletely evaluated. IMPRESSION: 1. No acute cardiopulmonary process. Report Dictated By: Luisito Castrejon at 07/02/2018 1:41 AM Report E-Signed By: Luisito Castrejon at 07/02/2018 1:42 AM WSN:[id number]
[2018-07-02] MEDS ORDERED: FURO80TA10 PO (02:04)
[2018-07-02] MEDS ORDERED: HYDR-2966 PO (02:05)
[2018-07-02] MEDS ORDERED: NORT50CA40 PO (02:07)
[2018-07-02] MEDS ORDERED: OMEP-125 PO (02:08)
[2018-07-02] MEDS ORDERED: VARE1TAB4 PO (02:09)
[2018-07-02] MEDS ORDERED: CYCL10TA29 PO (02:10)
[2018-07-02] MEDS ORDERED: ONDA4TAB PO (02:34)
--- NOTE | 2018-07-02 02:37 | EKG ---
FACILITY: [facility] - [place] PATIENT NAME: WILFREDO IZQUIERDO : [id number] MR: [id number] V: [id number] EXAM DATE: ORDERING PHYSICIAN: ALEX MAYA TECHNOLOGIST: ASHU Keen Reason : CARDIAC Blood Pressure : / mmHG Vent. Rate : 074 BPM Atrial Rate : 074 BPM P-R Int : 118 ms QRS Dur : 090 ms QT Int : 400 ms P-R-T Axes : 046 033 042 degrees QTc Int : 444 ms Sinus rhythm Possible left atrial enlargement Nonspecific ST findings inferior leads Confirmed by SUZANNA ALLEN ([id number]) on 07/02/2018 6:33:27 AM Referred By: Confirmed By:SUZANNA ALLEN
== END 2018-07-02 02:45 | disposition home or self-care (01) ==
LOC: ER 23:56
DX: K45.8 Other specified abdominal hernia without obstruction or gangrene (principal); R11.2 Nausea with vomiting, unspecified; R07.9 Chest pain, unspecified; F17.210 Nicotine dependence, cigarettes, uncomplicated
CPT/HCPCS: 71045; 83880; 84484; 85025; 93005; 96374; 99284; A9270; J1940; 82040; 82247; 82310; 82374; 82435; 82565; 82947; 84075; 84132; 84155; 84295; 84450; 84460; 84520

== ENCOUNTER → 2018-07-15 | Outpatient (CLI) | payer MEDICARE, MEDICAID ==
[2018-04-16 08:17] VITALS: BMI 47.0
[~2018-07-15] MED LIST changes: +BUDE10.25 IH; +FURO80TA10 PO; -METF-411 PO; +METF-450 PO; +NORT50CA40 PO; +OMEP-125 PO; +VARE1TAB4 PO
--- NOTE | 2018-07-16 08:20 | RADIOLOGY IMAGING REPORT ---
FACILITY: [facility] - [place] PATIENT NAME: WILFREDO IZQUIERDO : [id number] MR: [id number] V: [id number] EXAM DATE: [id number] ORDERING PHYSICIAN: STANLEY MCBRIDE TECHNOLOGIST: Melody Rivero PROCEDURE:RIGHT DIGITAL DIAGNOSTIC MAMMOGRAM WITH CAD ASSISTED INTERPRETATION & 3D TOMOSYNTHESIS COMPARISON:Prior mammograms 12/26/17, 04/16/17. INDICATIONS:6 MO Follow-up FINDINGS: There is predominant fatty replacement throughout the Right breast. The parenchymal pattern has remained stable allowing for difference in mammographic technique & patient positioning. Well circumscribed ovoid nodular density in the upper outer quadrant of the Right breast has remained stable. No malignant appearing calcifications are identified in the Right breast. DIAGNOSTIC CATEGORY 3--PROBABLY BENIGN FINDING. RECOMMENDATIONS: SIX MONTH FOLLOW-UP DIAGNOSTIC MAMMOGRAM: BILATERAL BREASTS. IMPRESSION: BIRADS 3: Probably benign finding. A 6 month follow-up bilateral mammogram is recommended at which time the patient will be due for her annual mammogram. Dictated by: Merced Sexton M.D. on 07/15/2018 at 17:15 Transcribed by: SADE on 07/16/2018 at 7:57 Approved by: Merced Sexton M.D. on 07/16/2018 at 8:19 [facility]
== END ==
LOC: MAMO 01:12
PROVIDERS: ATTEND Nurse Practitioner Family
DX: R92.8 Other abnormal and inconclusive findings on diagnostic imaging of breast (principal); Z80.3 Family history of malignant neoplasm of breast
CPT/HCPCS: 77061; 77065

== ENCOUNTER → 2018-07-16 | Outpatient (CLI) | payer MEDICARE, MEDICAID ==
[2018-04-16 08:17] VITALS: BMI 47.0
[2018-07-16 10:02] LABS: LDL CHOLESTEROL 81 mg/dl
== END ==
LOC: LAB 09:19
PROVIDERS: ATTEND Internal Medicine Cardiovascular Disease
DX: I10 Essential (primary) hypertension (principal); E78.00 Pure hypercholesterolemia, unspecified
CPT/HCPCS: 36415; 82040; 82247; 82310; 82374; 82435; 82465; 82565; 82947; 83718; 84075; 84132; 84155; 84295; 84450; 84460; 84478; 84520; 85027

== ENCOUNTER → 2018-07-19 | Outpatient (CLI) | payer MEDICARE, MEDICAID ==
[2018-04-16 08:17] VITALS: BMI 47.0
[~2018-07-19] MED LIST changes: +REGADENOSON 0.4 MG/5 ML SYR ONE
--- NOTE | 2018-07-19 15:36 | RT STRESS TEST REPORT ---
FACILITY: [facility] - [place] PATIENT NAME: WILFREDO IZQUIERDO : [id number] MR: [id number] V: [id number] EXAM DATE: ORDERING PHYSICIAN: LUCIANO ANDREWS TECHNOLOGIST: [employer] Time: 2018-07-19 14:31:52 Total Exercise Time: 00:01:00 Test Indications: Pre-Op Evaluation Medications: SEE NUCLEAR MED SHEET Protocol: LEXISCAN Max HR: 083 BPM 49% of Pred: 167 BPM Max BP: 108/065 mmHG Max Work Load: 1.0 METS The patient had no chest pain or anginal equivalent during the test. There were no ST changes. See the nuclear images for details. Confirmed by YON BURLESON ([id number]) on 07/19/2018 3:35:48 PM Referred By: Overread By: YON BURLESON
--- NOTE | 2018-07-19 16:51 | RADIOLOGY IMAGING REPORT ---
[place] [facility] [place]IENT NAME: Yolanda Olivia : 1965 MR: [id number] V: [id number] EXAM DATE: ORDERING PHYSICIAN: LUCIANO ANDREWS TECHNOLOGIST: Location: [facility] Patient: Yolanda Olivia : 1965 Visit/Account:[id number] Date of Sevice: 07/19/2018 EXAMINATION: Single isotope SPECT imaging with regadenoson infusion and gated SPECT imaging. DATE OF EXAMINATION: 07/19/2018. DATE OF INTERPRETATION: 07/19/2018. REQUESTING PHYSICIAN: LUCIANO ANDREWS. INDICATION: The patient is a 53-year-old female evaluated for shortness of breath. PROCEDURE: After informed consent the patient received an intravenous injection of 12.4 mCi of Tc-99 m sestamibi followed at an appropriate time interval by rest imaging. The patient then subsequently received an intravenous infusion of 0.4 mg of regadenoson per protocol without complication. Resting heart rate was 64 bpm with a peak heart rate of 83 bpm. Blood pressure at rest was 95 / 65 and foll owing infusion was 108 / 65. Baseline EKG demonstrates sinus rhythm. There were no EKG changes of i schemia following infusion. Symptoms were nonspecific. The patient then received an intravenous inj ection of 28.9 mCi of Tc-99m sestamibi followed by stress imaging. RAW DATA: Examination of the summed raw data revealed a good quality study. MYOCARDIAL PERFUSION: The tomographic images demonstrate normal myocardial perfusion with no evidenc e of infarct or ischemia. There is no TID. GATED IMAGES: The gated images demonstrate hyperdynamic ejection fraction >70% with normal wall erna on and thickening. IMPRESSION: 1. Nondiagnostic Lexiscan stress ECG 2. Normal myocardial perfusion scan. 3. Hyperdynamic LV systolic function; LVEF >70%. 4. Based on the results of this exam, the patient appears to be at low risk for future cardiovascular events. Report Dictated By: Jermaine Calderon at 07/19/2018 4:44 PM Report E-Signed By: Jermaine Calderon at 07/19/2018 4:47 PM WSN:[id number]
== END ==
LOC: NUC 04:28
PROVIDERS: ATTEND Internal Medicine Cardiovascular Disease
DX: R07.2 Precordial pain (principal)
CPT/HCPCS: 78452; 93017; A9500; J2785

== ENCOUNTER → 2018-08-21 | Outpatient (CLI) | payer MEDICARE, MEDICAID ==
[2018-04-16 08:17] VITALS: BMI 47.0
[~2018-08-21] MED LIST changes: +DEXTROSE 5%(*) 100 ML BAG 100 ML IVPB PRN; +LIDOCAINE/SOD BICARB 8.4% SYR ID PRN; +NS(*) 0.9% 100 ML BAG 100 ML IVPB PRN; +NS(*) 0.9% 1000 ML BAG 1,000 ML IV ONE; -REGADENOSON 0.4 MG/5 ML SYR ONE
[2018-08-21 12:53] VITALS: BP 113/99
[2018-08-21 13:27] LABS: PLATELET COUNT, AUTOMATED 213 K/uL (150-450)
== END ==
LOC: SPU 06:56
PROVIDERS: ATTEND Nurse Practitioner Family
DX: E86.0 Dehydration (principal)
CPT/HCPCS: 85025; 96360; J7030; 82040; 82247; 82310; 82374; 82435; 82565; 82947; 84075; 84132; 84155; 84295; 84450; 84460; 84520

== ENCOUNTER → 2018-09-30 | Outpatient (CLI) | payer MEDICARE, MEDICAID ==
[2018-04-16 08:17] VITALS: BMI 47.0
[~2018-09-30] MED LIST changes: -DEXTROSE 5%(*) 100 ML BAG 100 ML IVPB PRN; -LIDOCAINE/SOD BICARB 8.4% SYR ID PRN; -NS(*) 0.9% 100 ML BAG 100 ML IVPB PRN; -NS(*) 0.9% 1000 ML BAG 1,000 ML IV ONE
== END ==
LOC: LAB 09:43
PROVIDERS: ATTEND Nurse Practitioner Adult Health
DX: Z79.899 Other long term (current) drug therapy (principal)
CPT/HCPCS: 36415; 80178

== ENCOUNTER → 2018-10-07 | Outpatient (CLI) | payer MEDICARE, MEDICAID ==
[2018-04-16 08:17] VITALS: BMI 47.0
== END ==
LOC: LAB 09:20
PROVIDERS: ATTEND Nurse Practitioner Adult Health
DX: Z51.81 Encounter for therapeutic drug level monitoring (principal)
CPT/HCPCS: 36415; 80178

== ENCOUNTER 2018-10-11 01:39 | Emergency (ER) | payer MEDICARE, MEDICAID ==
[2018-04-16 08:17] VITALS: Wt 122.9 kg
[2018-10-11] MEDS ORDERED: LITC450 PO (01:49)
[2018-10-11] MEDS ORDERED: PANT40TA65 PO (01:49)
[2018-10-11] MEDS ORDERED: SUCR1TAB85 PO (01:49)
--- NOTE | 2018-10-11 01:58 | ER Report ---
History and Physical Time Seen By MD: 01:53 Hx. of Stated Complaint: HAS A HERNIA ON LEFT ABD WALL THAT NEEDS REPAIR. NONIGHT SHE HAS BEEN VOMITING UNCONTROLABLY AND "SOMETHING DOESN'T FEEL RIGHT, SOMETHING HAS CHANGED" IN HER ABDOMEN. APPEARS UNSTEADY, WEAK WHILE WALKING TO ROOM HPI/ROS CHIEF COMPLAINT: abdominal pain HISTORY OF PRESENT ILLNESS: This is a 53 year old female. She has abdominal pain. Yesterday started having abdominal pain with diarrhea and vomiting. No fever or chills noted. She has history of a hernia on left flank area, states waiting to have surgery on this. With the symptoms, this feels worse. She cant keep anything down. Significant amounts of watery diarrhea. Not short of breath and denies chest pain. Still nauseated. No dysuria, but urinates frequently, although the frequency is a chronic for her. No musculoskeletal pain. Allergies: Coded Allergies: codeine (Verified Allergy, Severe, ANAPHYLAXIS, 10/11/18) oxycodone (Verified Allergy, Mild, AIRWAY OBSTRUCTION, 10/11/18) Home Meds Active Scripts Potassium Chloride (KLOR-CON M20) 20 Meq Tab.er.prt, 20 MEQ PO QDAY, #30 TAB 0 Refills Prov:ALEX MAYA MD 10/11/18 Ondansetron 4 Mg Odt (ONDANSETRON 4 MG ODT) 4 Mg Tab.rapdis, 4 MG PO Q6H PRN for NAUSEA/VOMITING, #20 TAB 0 Refills Prov:ALEX MAYA MD 10/11/18 Ondansetron (ZOFRAN ODT) 4 Mg Tab.rapdis, 4 MG PO Q6H PRN for NAUSEA/VOMITING, #20 TAB.MALLIKA 0 Refills Prov:ALEX MAYA MD 07/02/18 Albuterol Sulfate 0.083% (ALBUTEROL SULFATE 0.083%) 2.5 Mg/3 Ml Vial.neb, 2.5 MG INH Q4-6H PRN for SHORTNESS OF BREATH, #20 VIAL 0 Refills Prov:FELICIANO DAVIS MARKETING STRATEGY MANAGER-BC 05/27/18 Reported Medications [place] Carbonate (LITHIUM CARBONATE) 450 Mg Tabcr, 450 MG PO 10/11/18 Sucralfate (CARAFATE) 1 Gm Tablet, 1 GM PO 10/11/18 Pantoprazole Sodium (PANTOPRAZOLE SODIUM) 40 Mg Tablet.dr, 40 MG PO QDAY, TAB.SR 10/11/18 Nortriptyline Hcl (NORTRIPTYLINE HCL) 50 Mg Capsule, 100 MG PO HS, CAPSULE 08/21/18 Cyclobenzaprine Hcl (CYCLOBENZAPRINE HCL) 10 Mg Tablet, 5 MG PO PRN, #9 TAB 07/02/18 Omeprazole (OMEPRAZOLE) 20 Mg Capsule.dr, 1 CAP PO QAM, CAP 07/02/18 Nortriptyline Hcl (NORTRIPTYLINE HCL) 50 Mg Capsule, 50-100 MG PO HS, CAPSULE 07/02/18 Hydrochlorothiazide (HYDROCHLOROTHIAZIDE) 25 Mg Tablet, 1 TAB PO QAM, TAB 07/02/18 Furosemide (LASIX) 80 Mg Tablet, 1 TAB PO QAM, TAB 07/02/18 Budesonide/Formoterol Fumarate (SYMBICORT 80-4.5 MCG INHALER) 10.2 Gm Hfa.aer.ad, 10.2 GM IH BID 07/01/18 Venlafaxine Hcl (VENLAFAXINE HCL ER) 75 Mg Cap.er.24h, 75 MG PO QDAY 05/12/18 Metformin HCl (Metformin HCl ER) 500 Mg Adxqhkl06s, 1 TAB PO DAILY 04/02/18 Lamotrigine (LAMOTRIGINE) 200 Mg Tab.er.24, 200 MG PO HS 04/02/18 Albuterol Sulfate 90 Mcg/Act (PROAIR HFA 90 MCG/ACT) 8.5 Gm Hfa.aer.ad, 2 PUFF IH QID, INHALER 01/28/18 Simvastatin (ZOCOR) 10 Mg Tablet, 10 MG PO DAILY, TAB 01/28/18 Fluticasone/Salmeterol (ADVAIR 100-50 DISKUS) 1 Each Disk.w.dev, 1 EACH IH BID 01/28/18 Hydroxyzine Hcl (HYDROXYZINE HCL) 25 Mg Tablet, 2 TAB PO QID 11/25/16 Reviewed Nurses Notes: Yes Hx Smoking: Yes (4-6 CIGARETTES A DAY) Smoking Status: Former Smoker Exposure to Second Hand Smoke?: Yes Hx Substance Use Disorder: No Hx Alcohol Use: No Constitutional Vital Sign - Last 24 Hours 10/11/18 10/11/18 10/11/18 10/11/18 01:43 01:46 01:54 02:09 Temp 97.7 Pulse 63 61 60 Resp 20 B/P (MAP) 116/64 116/64 (81) Pulse Ox 94 89 89 O2 Delivery Room Air 10/11/18 10/11/18 10/11/18 10/11/18 02:24 02:25 02:30 02:39 Pulse ? B/P (MAP) 109/53 (71) 111/58 (75) Pulse Ox 94 10/11/18 10/11/18 10/11/18 10/11/18 02:54 02:57 03:00 03:02 Pulse ??? B/P (MAP) 116/66 (83) 83/66 (72) 108/58 (75) 10/11/18 10/11/18 10/11/18 10/11/18 03:04 03:09 03:14 03:30 Pulse 61 61 60 B/P (MAP) 121/72 (88) Pulse Ox 96 96 97 10/11/18 10/11/18 10/11/18 10/11/18 03:44 03:59 04:00 04:14 Pulse 61 61 61 B/P (MAP) 119/65 (83) Pulse Ox 95 95 10/11/18 10/11/18 10/11/18 10/11/18 04:19 04:30 04:34 04:49 Pulse 62 61 62 B/P (MAP) ???/??? (1665) Pulse Ox 95 95 95 10/11/18 10/11/18 10/11/18 05:00 05:04 05:10 Pulse 58 B/P (MAP) 118/65 (82) 116/64 (81) Pulse Ox 95 Intake and Output 10/10/18 10/10/18 10/11/18 15:00 23:00 07:00 Intake Total 1645 ml Balance 1645 ml Physical Exam General Appearance: The patient is alert. No acute distress. Eyes: Pupils are equal, round. No pallor, injection or icterus. ENT: Mucous membranes are moist. Normal oral mucosa. Posterior oropharynx is normal. Neck: Supple and non tender. Respiratory: Lungs are clear to auscultation. Cardiovascular: Regular rate and rhythm. No murmurs, gallops or rubs. Normal capillary refill. Gastrointestinal: Abdomen is soft, diffuse discomfort, with tenderness in the epigastric area and left upper area. Nondistended. Guarding bu no rebound. Hyperactive bowel sounds. No costovertebral angle tenderness with percussion. Neurological: Alert and oriented x3. No focal neurologic deficits. Skin: Warm and dry. Musculoskeletal: Extremities are nontender. No tenderness in palpation of the cervical, thoracic and lumbar spine. DIFFERENTIAL DIAGNOSIS: After history and physical exam, differential diagnosis was considered for abdominal pain including but not limited to colitis, gastroenteritis, obstruction and urinary tract infection. Medical Decision Making Data Points Result Diagram: 10/11/183 10/11/18 0213 Laboratory Hematology Test 10/11/18 01:45 10/11/18 02:13 Urine Color Straw Urine Clarity Clear Urine pH 7.0 pH (4.8-9.5) Urine Specific [place] 1.011 Urine Protein Negative mg/dL (NEGATIVE) Urine Glucose (UA) Negative mg/dL (NEGATIVE) Urine Ketones Negative mg/dL (NEGATIVE) Urine Blood Negative (NEGATIVE) Urine Nitrite Negative (NEGATIVE) Urine Bilirubin Negative (NEGATIVE) Urine Urobilinogen 2.0 mg/dL (0.2-1.9) Urine Leukocyte Esterase Negative (NEGATIVE) Urine RBC 1 /HPF (0-2/HPF) Urine WBC 2 /HPF (0-5/HPF) Urine Squamous Epithelial Cells Many /LPF (</=FEW) Urine Bacteria Negative /HPF (NONE-FEW) Urine Mucus None /HPF (NONE-FEW) Red Blood Count 4.30 M/uL (4.17-5.56) Mean Corpuscular Volume 88.9 fL (80.0-96.0) Mean Corpuscular Hemoglobin 29.7 pg (26.0-33.0) Mean Corpuscular Hemoglobin Concent 33.4 g/dL (32.0-36.0) Red Cell Distribution Width 16.2 % (11.5-14.5) Mean Platelet Volume 8.4 fL (7.2-11.1) Neutrophils (%) (Auto) 68.8 % (39.4-72.5) Lymphocytes (%) (Auto) 23.3 % (17.6-49.6) Monocytes (%) (Auto) 7.4 % (4.1-12.4) Eosinophils (%) (Auto) 0.0 % (0.4-6.7) Basophils (%) (Auto) 0.5 % (0.3-1.4) Nucleated RBC Relative Count (auto) 0.1 /100WBC Neutrophils # (Auto) 8.1 K/uL (2.0-7.4) Lymphocytes # (Auto) 2.7 K/uL (1.3-3.6) Monocytes # (Auto) 0.9 K/uL (0.3-1.0) Eosinophils # (Auto) 0.0 K/uL (0.0-0.5) Basophils # (Auto) 0.1 K/uL (0.0-0.1) Nucleated RBC Absolute Count (auto) 0.01 K/uL Sodium Level 137 mmol/L (137-145) Potassium Level 2.9 mmol/L (3.5-5.0) Chloride Level 104 mmol/L (98-107) Carbon Dioxide Level 28 mmol/L (22-31) Blood Urea Nitrogen 26 mg/dl (7-18) Creatinine 0.90 mg/dl (0.52-1.04) Glomerular Filtration Rate Calc > 60.0 Random Glucose 100 mg/dl (75-110) Calcium Level 8.8 mg/dl (8.4-10.2) Total Bilirubin 0.4 mg/dl (0.2-1.3) Aspartate Amino Transf (AST/SGOT) 21 U/L (0-35) Alanine Aminotransferase (ALT/SGPT) 28 U/L (0-56) Alkaline Phosphatase 98 U/L (0-126) Total Protein 6.6 g/dl (6.3-8.2) Albumin 3.5 g/dl (3.5-5.0) Amylase Level 106 U/L (0-110) Lipase 115 U/L (23-300) Chemistry Test 10/11/18 01:45 10/11/18 02:13 Urine Color Straw Urine Clarity Clear Urine pH 7.0 pH (4.8-9.5) Urine Specific [place] 1.011 Urine Protein Negative mg/dL (NEGATIVE) Urine Glucose (UA) Negative mg/dL (NEGATIVE) Urine Ketones Negative mg/dL (NEGATIVE) Urine Blood Negative (NEGATIVE) Urine Nitrite Negative (NEGATIVE) Urine Bilirubin Negative (NEGATIVE) Urine Urobilinogen 2.0 mg/dL (0.2-1.9) Urine Leukocyte Esterase Negative (NEGATIVE) Urine RBC 1 /HPF (0-2/HPF) Urine WBC 2 /HPF (0-5/HPF) Urine Squamous Epithelial Cells Many /LPF (</=FEW) Urine Bacteria Negative /HPF (NONE-FEW) Urine Mucus None /HPF (NONE-FEW) White Blood Count 11.8 k/uL (4.5-11.0) Red Blood Count 4.30 M/uL (4.17-5.56) Hemoglobin 12.8 g/dL (12.0-16.0) Hematocrit 38.2 % (34.0-47.0) Mean Corpuscular Volume 88.9 fL (80.0-96.0) Mean Corpuscular Hemoglobin 29.7 pg (26.0-33.0) Mean Corpuscular Hemoglobin Concent 33.4 g/dL (32.0-36.0) Red Cell Distribution Width 16.2 % (11.5-14.5) Platelet Count 229 K/uL (150-450) Mean Platelet Volume 8.4 fL (7.2-11.1) Neutrophils (%) (Auto) 68.8 % (39.4-72.5) Lymphocytes (%) (Auto) 23.3 % (17.6-49.6) Monocytes (%) (Auto) 7.4 % (4.1-12.4) Eosinophils (%) (Auto) 0.0 % (0.4-6.7) Basophils (%) (Auto) 0.5 % (0.3-1.4) Nucleated RBC Relative Count (auto) 0.1 /100WBC Neutrophils # (Auto) 8.1 K/uL (2.0-7.4) Lymphocytes # (Auto) 2.7 K/uL (1.3-3.6) Monocytes # (Auto) 0.9 K/uL (0.3-1.0) Eosinophils # (Auto) 0.0 K/uL (0.0-0.5) Basophils # (Auto) 0.1 K/uL (0.0-0.1) Nucleated RBC Absolute Count (auto) 0.01 K/uL Glomerular Filtration Rate Calc > 60.0 Calcium Level 8.8 mg/dl (8.4-10.2) Total Bilirubin 0.4 mg/dl (0.2-1.3) Aspartate Amino Transf (AST/SGOT) 21 U/L (0-35) Alanine Aminotransferase (ALT/SGPT) 28 U/L (0-56) Alkaline Phosphatase 98 U/L (0-126) Total Protein 6.6 g/dl (6.3-8.2) Albumin 3.5 g/dl (3.5-5.0) Amylase Level 106 U/L (0-110) Lipase 115 U/L (23-300) Urinalysis Test 10/11/18 01:45 Urine Color Straw Urine Clarity Clear Urine pH 7.0 pH (4.8-9.5) Urine Specific [place] 1.011 Urine Protein Negative mg/dL (NEGATIVE) Urine Glucose (UA) Negative mg/dL (NEGATIVE) Urine Ketones Negative mg/dL (NEGATIVE) Urine Blood Negative (NEGATIVE) Urine Nitrite Negative (NEGATIVE) Urine Bilirubin Negative (NEGATIVE) Urine Urobilinogen 2.0 mg/dL (0.2-1.9) Urine Leukocyte Esterase Negative (NEGATIVE) Urine RBC 1 /HPF (0-2/HPF) Urine WBC 2 /HPF (0-5/HPF) Urine Squamous Epithelial Cells Many /LPF (</=FEW) Urine Bacteria Negative /HPF (NONE-FEW) Urine Mucus None /HPF (NONE-FEW) EKG/Imaging Imaging CT of the abdomen and pelvis with contrast: Indication: Epigastric and left upper abdominal pain. Technique: Helical CT was performed through the abdomen and pelvis following IV contrast enhancement with 75 cc of Isovue-370. Multiplanar reconstructions are reviewed. One of the following dose optimization techniques was utilized in the performance of this exam: Automated exposure control; adjustment of the mA and/or kV according to the patient's size; or use of an iterative reconstruction technique. Specific details can be referenced in the facility's radiology CT exam operational policy. Comparison: 05/12/2018 Lower lung [place]: No focal parenchymal or pleural abnormality is identified. A small hiatal hernia is not significantly changed. Liver: Normal in size, shape, and density. The venous structures are unremarkable, as visualized. Gallbladder/biliary tree: There are multiple surgical clips related to prior cholecystectomy. There is chronic mild dilatation of the biliary tree, consistent with a postcholecystectomy state. No obstructing process is identified. Pancreas: Normal in size, shape, and density. There are no signs of peripancrea tic inflammation or fluid. Spleen: Normal in size, shape, and density. Adrenal glands: Within normal limits. Kidneys/urinary bladder: The kidneys are normal in size, shape, and density. There are no signs of urinary tract calculus or obstruction. The bladder is unremarkable, as visualized. Intestinal structures: There are stable postoperative changes, consistent with gastric bypass surgery. There are no signs of soft tissue abnormality, inflammation, or fluid around the surgical site. The intestinal structures are otherwise unremarkable. There are no signs of structural or acute inflammatory changes. Pelvis: The uterus is absent. There are no signs of inflammation, fluid, or soft tissue mass in the pelvis. Aorta and vascular structures: Within normal limits. Ascites or fluid collections: None seen. Skeletal/soft tissue structures: There are stable degenerative changes in the spine. No acute skeletal deformity is identified. A small fat-containing umbilical hernia appears unchanged. Impression: No acute process is identified in the abdomen or pelvis. There has been no significant change. Report Dictated By: Venkat Velasquez MD at 10/11/2018 3:14 AM ED Course/Re-evaluation Clinical Indication for ER IV: Hydration, IV Access ED Course Did provide pain and nausea medicine, Dilaudid and Zofran. A liter of normal saline was given. Patient feels much better. Reviewed labs with her. Potassium is low and replaced with 20mEq K-rider and an oral dose. CT negative. Reviewed conservative measures for enteritis. Decision to Disposition Date: Oct 11, 2018 Decision to Disposition Time: 04:06 Depart Departure Latest Vital Signs Vital Signs Date Time Temp Pulse Resp B/P (MAP) Pulse Ox O2 Delivery O2 Flow Rate FiO2 10/11/18 05:10 116/64 (81) 10/11/18 05:04 58 95 10/11/18 01:43 97.7 20 Room Air Impression: Primary Impression: Enteritis Condition: Improved Disposition: HOME OR SELF-CARE Referrals: OC PEREZ MD (PCP) New Scripts Potassium Chloride (KLOR-CON M20) 20 Meq Tab.er.prt 20 MEQ PO QDAY, #30 TAB 0 Refills Prov: ALEX MAYA MD 10/11/18 Ondansetron 4 Mg Odt (ONDANSETRON 4 MG ODT) 4 Mg Tab.rapdis 4 MG PO Q6H PRN for NAUSEA/VOMITING, #20 TAB 0 Refills Prov: ALEX MAYA MD 10/11/18 Patient Instructions: Enteritis (ED) Additional Instructions: Rest and increase fluid intake for the next few days. Take Zofran 4mg, one every 6 hours as needed for nausea and vomiting. Your potassium was low from the vomiting and diarrhea. Take a KlorCon 20mEq potassium tablet once a day. Follow-up with your doctor for recheck of your potassium and other electrolytes. ALEX MAYA MD Oct 11, 2018 01:58
[2018-10-11] MEDS ORDERED: NS(*) 0.9% 1000 ML BAG 1,000 ML IV ONE ×2 (02:03→04:20)
[2018-10-11] MEDS ORDERED: HYDROMORPHONE HCL 1 MG/ML SYRINGE IVP ONE (02:05)
[2018-10-11] MEDS ORDERED: ONDANSETRON 4 MG/2 ML VIAL IVP ONE (02:05)
[2018-10-11] MEDS ORDERED: IOPAMIDOL 76% 50 ML INFUS BTL 100 ML ONE (02:19)
[2018-10-11 02:31] LABS: PLATELET COUNT, AUTOMATED 229 K/uL (150-450)
[2018-10-11] MEDS ORDERED: KCL (*) 20 MEQ/100 ML PREMIX 100 ML IV ONE (02:40)
--- NOTE | 2018-10-11 03:38 | RADIOLOGY IMAGING REPORT ---
FACILITY: [facility] - [place] PATIENT NAME: Yolanda Olivia : 1965 MR: [id number] V: [id number] EXAM DATE: [id number] ORDERING PHYSICIAN: ALEX MAYA TECHNOLOGIST: Location: [facility] [place] Patient: Yolanda Olivia : 1965 Visit/Account:[id number] Date of Sevice: 10/11/2018 CT of the abdomen and pelvis with contrast: Indication: Epigastric and left upper abdominal pain. Technique: Helical CT was performed through the abdomen and pelvis following IV contrast enhancement with 75 cc of Isovue-370. Multiplanar reconstructions are reviewed. One of the following dose optimization techniques was utilized in the performance of this exam: Autom ated exposure control; adjustment of the mA and/or kV according to the patient's size; or use of an i terative reconstruction technique. Specific details can be referenced in the facility's radiology CT exam operational policy. Comparison: 05/12/2018 Lower lung [place]: No focal parenchymal or pleural abnormality is identified. A small hiatal hernia i s not significantly changed. Liver: Normal in size, shape, and density. The venous structures are unremarkable, as visualized. Gallbladder/biliary tree: There are multiple surgical clips related to prior cholecystectomy. There i s chronic mild dilatation of the biliary tree, consistent with a postcholecystectomy state. No obstru cting process is identified. Pancreas: Normal in size, shape, and density. There are no signs of peripancreatic inflammation or fl uid. Spleen: Normal in size, shape, and density. Adrenal glands: Within normal limits. Kidneys/urinary bladder: The kidneys are normal in size, shape, and density. There are no signs of ur inary tract calculus or obstruction. The bladder is unremarkable, as visualized. Intestinal structures: There are stable postoperative changes, consistent with gastric bypass surgery . There are no signs of soft tissue abnormality, inflammation, or fluid around the surgical site. The intestinal structures are otherwise unremarkable. There are no signs of structural or acute infla mmatory changes. Pelvis: The uterus is absent. There are no signs of inflammation, fluid, or soft tissue mass in the p meliton. Aorta and vascular structures: Within normal limits. Ascites or fluid collections: None seen. Skeletal/soft tissue structures: There are stable degenerative changes in the spine. No acute skeleta l deformity is identified. A small fat-containing umbilical hernia appears unchanged. Impression: No acute process is identified in the abdomen or pelvis. There has been no significant ch estee. Report Dictated By: Venkat Velasquez MD at 10/11/2018 3:14 AM Report E-Signed By: Venkat Velasquez MD at 10/11/2018 3:33 AM WSN:[id number]
[2018-10-11] MEDS ORDERED: ONDANSETRON 4 MG ODT TH SL ONE (04:05)
[2018-10-11] MEDS ORDERED: POTASSIUM CHL 20 MEQ TABCR PO ONE (04:05)
[2018-10-11] MEDS ORDERED: POTA20TA85 PO (04:07)
[2018-10-11] MEDS ORDERED: ONDA4TAB9 PO (04:07)
[2018-10-11 05:10] VITALS: BP 116/64
== END 2018-10-11 05:30 | disposition home or self-care (01) ==
LOC: ER 01:42
DX: K52.9 Noninfective gastroenteritis and colitis, unspecified (principal); E87.6 Hypokalemia
CPT/HCPCS: 74177; 81001; 82150; 83690; 85025; 96361; 96365; 96366; 96375; 99284; A9270; J1170; J2405; J3480; J7030; Q0162; Q9967; 82040; 82247; 82310; 82374; 82435; 82565; 82947; 84075; 84132; 84155; 84295; 84450; 84460; 84520; S0119

== ENCOUNTER 2018-10-13 01:52 | Emergency (ER) | payer MEDICARE, MEDICAID ==
[2018-04-16 08:17] VITALS: Wt 127.0 kg
[~2018-10-13 01:52] MED LIST changes: +LITC450 PO; +ONDA4TAB9 PO; +PANT40TA65 PO; +POTA20TA85 PO; +SUCR1TAB85 PO
--- NOTE | 2018-10-13 02:00 | ER Report ---
History and Physical Time Seen By MD: 01:59 HPI/ROS CHIEF COMPLAINT: Abdominal distention, abdominal pain HISTORY OF PRESENT ILLNESS: 83-year-old female with a history of ventral hernia, status post gastric bypass. She has plans for removal of her gastric bypass in November. Patient reports her abdomen is swelled up over the last 4 hours. She's having difficulty breathing. Patient denies fever or chills. She denies productive cough. She notes nausea but no vomiting. She notes severe abdominal pressure and pain. She's never had a bowel obstruction. REVIEW OF SYSTEMS: Respiratory: No cough, no dyspnea. Cardiovascular: No chest pain, no palpitations. Gastrointestinal: As above Musculoskeletal: No back pain. Allergies: Coded Allergies: codeine (Verified Allergy, Severe, ANAPHYLAXIS, 10/13/18) oxycodone (Verified Allergy, Mild, AIRWAY OBSTRUCTION, 10/13/18) Home Meds Active Scripts Potassium Chloride (KLOR-CON M20) 20 Meq Tab.er.prt, 20 MEQ PO QDAY, #30 TAB 0 Refills Prov:ALEX MAYA MD 10/11/18 Ondansetron 4 Mg Odt (ONDANSETRON 4 MG ODT) 4 Mg Tab.rapdis, 4 MG PO Q6H PRN for NAUSEA/VOMITING, #20 TAB 0 Refills Prov:ALEX MAYA MD 10/11/18 Ondansetron (ZOFRAN ODT) 4 Mg Tab.rapdis, 4 MG PO Q6H PRN for NAUSEA/VOMITING, #20 TAB.MALLIKA 0 Refills Prov:ALEX MAYA MD 07/02/18 Albuterol Sulfate 0.083% (ALBUTEROL SULFATE 0.083%) 2.5 Mg/3 Ml Vial.neb, 2.5 MG INH Q4-6H PRN for SHORTNESS OF BREATH, #20 VIAL 0 Refills Prov:FELICIANO DAVIS CHIEF RISK OFFICER-BC 05/27/18 Reported Medications [place] Carbonate (LITHIUM CARBONATE) 450 Mg Tabcr, 450 MG PO 10/11/18 Sucralfate (CARAFATE) 1 Gm Tablet, 1 GM PO 10/11/18 Pantoprazole Sodium (PANTOPRAZOLE SODIUM) 40 Mg Tablet.dr, 40 MG PO QDAY, TAB.SR 10/11/18 Nortriptyline Hcl (NORTRIPTYLINE HCL) 50 Mg Capsule, 100 MG PO HS, CAPSULE 08/21/18 Cyclobenzaprine Hcl (CYCLOBENZAPRINE HCL) 10 Mg Tablet, 5 MG PO PRN, #9 TAB 07/02/18 Omeprazole (OMEPRAZOLE) 20 Mg Capsule.dr, 1 CAP PO QAM, CAP 07/02/18 Nortriptyline Hcl (NORTRIPTYLINE HCL) 50 Mg Capsule, 50-100 MG PO HS, CAPSULE 07/02/18 Hydrochlorothiazide (HYDROCHLOROTHIAZIDE) 25 Mg Tablet, 1 TAB PO QAM, TAB 07/02/18 Furosemide (LASIX) 80 Mg Tablet, 1 TAB PO QAM, TAB 07/02/18 Budesonide/Formoterol Fumarate (SYMBICORT 80-4.5 MCG INHALER) 10.2 Gm Hfa.aer.ad, 10.2 GM IH BID 07/01/18 Venlafaxine Hcl (VENLAFAXINE HCL ER) 75 Mg Cap.er.24h, 75 MG PO QDAY 05/12/18 Metformin HCl (Metformin HCl ER) 500 Mg Aherhtu20p, 1 TAB PO DAILY 04/02/18 Lamotrigine (LAMOTRIGINE) 200 Mg Tab.er.24, 200 MG PO HS 04/02/18 Albuterol Sulfate 90 Mcg/Act (PROAIR HFA 90 MCG/ACT) 8.5 Gm Hfa.aer.ad, 2 PUFF IH QID, INHALER 01/28/18 Simvastatin (ZOCOR) 10 Mg Tablet, 10 MG PO DAILY, TAB 01/28/18 Fluticasone/Salmeterol (ADVAIR 100-50 DISKUS) 1 Each Disk.w.dev, 1 EACH IH BID 01/28/18 Hydroxyzine Hcl (HYDROXYZINE HCL) 25 Mg Tablet, 2 TAB PO QID 11/25/16 Past Medical/Surgical History Gastric bypass, ventral hernia Reviewed Nurses Notes: Yes Old Medical Records Reviewed: Yes Hx Smoking: Yes (4-6 CIGARETTES A DAY) Smoking Status: Former Smoker Exposure to Second Hand Smoke?: Yes Hx Substance Use Disorder: No Hx Alcohol Use: No Constitutional Vital Sign - Last 24 Hours 10/13/18 10/13/18 10/13/18 10/13/18 02:00 02:00 02:22 02:30 Temp 98.0 Pulse 68 70 Resp 15 20 B/P (MAP) 109/74 109/74 (86) 90/50 (63) Pulse Ox 94 96 O2 Delivery Nasal Cannula 10/13/18 10/13/18 10/13/18 10/13/18 02:52 02:57 03:00 03:35 Pulse 65 65 73 Resp 23 16 B/P (MAP) 109/58 (75) Pulse Ox 96 94 90 10/13/18 10/13/18 10/13/18 10/13/18 04:00 04:05 04:10 04:30 Pulse 67 81 B/P (MAP) 112/67 (82) 112/68 (83) Pulse Ox 94 91 10/13/18 04:40 Pulse 69 Pulse Ox 96 Physical Exam General Appearance: The patient is alert, has no immediate need for airway protection and no current signs of toxicity. Vital signs stable, afebrile, pulse ox normal Eyes: Pupils equal and round no injection. Respiratory: Chest is non tender, lungs are clear to auscultation. Cardiac: regular rate and rhythm Gastrointestinal: Abdomen is soft gross distention, firm upper abdominal wall hernia, no masses, bowel sounds normal. Musculoskeletal: Neck: Neck is supple and non tender. Extremities have full range of motion and are non tender. No edema Skin: No rashes or lesions. DIFFERENTIAL DIAGNOSIS: After history and physical exam differential diagnosis was considered for abdominal pain including but not limited to appendicitis, cholecystitis, gastritis , bowel obstruction, incarcerated hernia and urinary tract infection. Medical Decision Making Data Points Result Diagram: 10/13/18 0243 10/13/18 0243 Laboratory Hematology Test 10/13/18 02:43 Red Blood Count 4.15 M/uL (4.17-5.56) Mean Corpuscular Volume 89.2 fL (80.0-96.0) Mean Corpuscular Hemoglobin 29.9 pg (26.0-33.0) Mean Corpuscular Hemoglobin Concent 33.5 g/dL (32.0-36.0) Red Cell Distribution Width 16.8 % (11.5-14.5) Mean Platelet Volume 8.2 fL (7.2-11.1) Neutrophils (%) (Auto) 75.9 % (39.4-72.5) Lymphocytes (%) (Auto) 14.9 % (17.6-49.6) Monocytes (%) (Auto) 6.8 % (4.1-12.4) Eosinophils (%) (Auto) 0.0 % (0.4-6.7) Basophils (%) (Auto) 2.4 % (0.3-1.4) Nucleated RBC Relative Count (auto) 0.0 /100WBC Neutrophils # (Auto) 8.8 K/uL (2.0-7.4) Lymphocytes # (Auto) 1.7 K/uL (1.3-3.6) Monocytes # (Auto) 0.8 K/uL (0.3-1.0) Eosinophils # (Auto) 0.0 K/uL (0.0-0.5) Basophils # (Auto) 0.3 K/uL (0.0-0.1) Nucleated RBC Absolute Count (auto) 0.00 K/uL Peripheral Blood Smear Yes Y/N Sodium Level 137 mmol/L (137-145) Potassium Level 3.0 mmol/L (3.5-5.0) Chloride Level 105 mmol/L (98-107) Carbon Dioxide Level 24 mmol/L (22-31) Blood Urea Nitrogen 16 mg/dl (7-18) Creatinine 0.80 mg/dl (0.52-1.04) Glomerular Filtration Rate Calc > 60.0 Random Glucose 96 mg/dl (75-110) Calcium Level 8.1 mg/dl (8.4-10.2) Total Bilirubin 0.3 mg/dl (0.2-1.3) Aspartate Amino Transf (AST/SGOT) 19 U/L (0-35) Alanine Aminotransferase (ALT/SGPT) 22 U/L (0-56) Alkaline Phosphatase 90 U/L (0-126) Total Protein 6.4 g/dl (6.3-8.2) Albumin 3.5 g/dl (3.5-5.0) Amylase Level 94 U/L (0-110) Lipase 99 U/L (23-300) Chemistry Test 10/13/18 02:43 White Blood Count 11.6 k/uL (4.5-11.0) Red Blood Count 4.15 M/uL (4.17-5.56) Hemoglobin 12.4 g/dL (12.0-16.0) Hematocrit 37.0 % (34.0-47.0) Mean Corpuscular Volume 89.2 fL (80.0-96.0) Mean Corpuscular Hemoglobin 29.9 pg (26.0-33.0) Mean Corpuscular Hemoglobin Concent 33.5 g/dL (32.0-36.0) Red Cell Distribution Width 16.8 % (11.5-14.5) Platelet Count 225 K/uL (150-450) Mean Platelet Volume 8.2 fL (7.2-11.1) Neutrophils (%) (Auto) 75.9 % (39.4-72.5) Lymphocytes (%) (Auto) 14.9 % (17.6-49.6) Monocytes (%) (Auto) 6.8 % (4.1-12.4) Eosinophils (%) (Auto) 0.0 % (0.4-6.7) Basophils (%) (Auto) 2.4 % (0.3-1.4) Nucleated RBC Relative Count (auto) 0.0 /100WBC Neutrophils # (Auto) 8.8 K/uL (2.0-7.4) Lymphocytes # (Auto) 1.7 K/uL (1.3-3.6) Monocytes # (Auto) 0.8 K/uL (0.3-1.0) Eosinophils # (Auto) 0.0 K/uL (0.0-0.5) Basophils # (Auto) 0.3 K/uL (0.0-0.1) Nucleated RBC Absolute Count (auto) 0.00 K/uL Peripheral Blood Smear Yes Y/N Glomerular Filtration Rate Calc > 60.0 Calcium Level 8.1 mg/dl (8.4-10.2) Total Bilirubin 0.3 mg/dl (0.2-1.3) Aspartate Amino Transf (AST/SGOT) 19 U/L (0-35) Alanine Aminotransferase (ALT/SGPT) 22 U/L (0-56) Alkaline Phosphatase 90 U/L (0-126) Total Protein 6.4 g/dl (6.3-8.2) Albumin 3.5 g/dl (3.5-5.0) Amylase Level 94 U/L (0-110) Lipase 99 U/L (23-300) EKG/Imaging Imaging X-ray: Two-view chest x-ray was obtained. I viewed the images myself on the PACS system. My interpretation of the images is: No infiltrate, no effusions, normal mediastinum. The radiologist interpretation had no clinically significant variation from this interpretation. Results: CT scan of the abdomen and pelvis with IV contrast was obtained. The results of the study are ABDOMEN/PELVIS WITH CONTRAST HISTORY:abd distention hernia ? strangulation TECHNIQUE: CT abdomen and pelvis with intravenous contrast. Contiguous axial images of the abdomen and pelvis was performed from the lung bases to the symphysis pubis. One of the following dose optimization techniques was utilized in the performance of this exam: Automated exposure control; adjustment of the mA and/or kV according to the patient's size; or use of an iterative reconstruction technique. Specific details can be referenced in the facility's radiology CT exam operational policy. CONTRAST: 75 cc of Isovue-370 COMPARISON: CT scan 05/12/2018, 10/11/2018 FINDINGS: Visualized lung bases: Negative. Hepatobiliary: Gallbladder is absent. Modest distention of the biliary tree is stable. Spleen: Negative. Adrenals: Negative. Kidneys/: Negative. Pancreas: Negative. GI: Postoperative changes are noted from a gastric bypass procedure which appears to be a Catherine-en-Y bypass. There is a small hiatal hernia. The Catherine loop and left upper quadrant is somewhat distended but unchanged without evidence for obstruction. Patient is mildly constipated. Vessels/spaces/nodes: Negative. Bones/soft tissues: Infiltration soft tissues posterior to the spine is stable with areas of calcification. Degenerative changes are noted the spine. IMPRESSION: 1. No acute pathology in the abdomen or pelvis. Postoperative changes are noted from gastric bypass procedure without evidence for bowel obstruction or other complication. 2. Other chronic findings described above. The study was read by the radiologist. I viewed the images myself on the PACS system. ED Course/Re-evaluation Clinical Indication for ER IV: Hydration, IV Access ED Course Patient was admitted to an examination room. H&P was done. The differential diagnoses was considered. Peripheral IV was established. Patient was treated with IV fluid hydration, Zofran and fentanyl for pain. A CT scan of the abdomen and pelvis with IV contrast was performed. There was no evidence of bowel obstruction. There was a distended loop of her gastric bypass that was causing significant pain. She was placed in Trendelenburg. Her abdomen was massaged. Attempted reduction of her hernia was performed. She reports significant improvement of her pain and decompression of her abdomen. She was like to go home. She states she has Zofran at home for nausea control. She's got many allergies to the opiate pain relievers. She is discharged home with Dilaudid. 2 tablets in a take home pack no other prescription. She is advised a clear liquid diet with regular MiraLAX use. Patient advised to follow-up with her surgeon sooner if her symptoms persist. Decision to Disposition Date: Oct 13, 2018 Decision to Disposition Time: 04:27 Depart Departure Latest Vital Signs Vital Signs Date Time Temp Pulse Resp B/P (MAP) Pulse Ox O2 Delivery O2 Flow Rate FiO2 10/13/18 04:40 69 96 10/13/18 04:30 112/68 (83) 10/13/18 02:57 16 10/13/18 02:00 98.0 Nasal Cannula Impression: Primary Impression: Abdominal distention Additional Impressions: History of gastric bypass Ventral hernia Dyspnea Constipation Condition: Improved Disposition: HOME OR SELF-CARE Referrals: OC PEREZ MD (PCP) Patient Instructions: Clear Liquid Diet (ED) Additional Instructions: Follow clear liquid diet for 48 hours and to your bowels evacuated Take MiraLAX twice daily and continue once daily as instructed Follow-up with your primary care if unimproved in 2-3 days Problem Qualifiers Additional Impressions: Ventral hernia Obstruction and gangrene presence: without obstruction or gangrene Qualified Codes: K43.9 - Ventral hernia without obstruction or gangrene Dyspnea Dyspnea type: unspecified Qualified Codes: R06.00 - Dyspnea, unspecified Constipation Constipation type: unspecified constipation type Qualified Codes: K59.00 - Constipation, unspecified ADAM THRASHER DO Oct 13, 2018 02:00
[2018-10-13] MEDS ORDERED: NS(*) 0.9% 1000 ML BAG 1,000 ML IV ONE (02:10)
[2018-10-13] MEDS ORDERED: ONDANSETRON 4 MG/2 ML VIAL IVP ONE (02:10)
[2018-10-13 02:55] LABS: PLATELET COUNT, AUTOMATED 225 K/uL (150-450)
[2018-10-13] MEDS ORDERED: IOPAMIDOL 76% 50 ML INFUS BTL 100 ML ONE (03:14)
[2018-10-13] MEDS ORDERED: fentaNYL CITR 100 MCG/2 ML AMP IVP ONE (04:00)
--- NOTE | 2018-10-13 04:04 | RADIOLOGY IMAGING REPORT ---
[place] [facility] [place] Yolanda Olivia : 1965 MR: [id number] V: [id number] EXAM DATE: ORDERING PHYSICIAN: ADAM THRASHER TECHNOLOGIST: Location: [facility] - [place] Patient: Yolanda Olivia : 1965 Visit/Account:[id number] Date of Sevice: 10/13/2018 ABDOMEN/PELVIS WITH CONTRAST HISTORY:abd distention hernia ? strangulation TECHNIQUE: CT abdomen and pelvis with intravenous contrast. Contiguous axial images of the abdomen and pelvis was performed from the lung bases to the symphysis pubis. One of the following dose optimization techniques was utilized in the performance of this exam: Autom ated exposure control; adjustment of the mA and/or kV according to the patient's size; or use of an i terative reconstruction technique. Specific details can be referenced in the facility's radiology C T exam operational policy. CONTRAST: 75 cc of Isovue-370 COMPARISON: CT scan 05/12/2018, 10/11/2018 FINDINGS: Visualized lung bases: Negative. Hepatobiliary: Gallbladder is absent. Modest distention of the biliary tree is stable. Spleen: Negative. Adrenals: Negative. Kidneys/: Negative. Pancreas: Negative. GI: Postoperative changes are noted from a gastric bypass procedure which appears to be a Catherine-en-Y bypass. There is a small hiatal hernia. The Catherine loop and left upper quadrant is somewhat distended b ut unchanged without evidence for obstruction. Patient is mildly constipated. Vessels/spaces/nodes: Negative. Bones/soft tissues: Infiltration soft tissues posterior to the spine is stable with areas of calcifi cation. Degenerative changes are noted the spine. IMPRESSION: 1. No acute pathology in the abdomen or pelvis. Postoperative changes are noted from gastric bypass procedure without evidence for bowel obstruction or other complication. 2. Other chronic findings described above. Report Dictated By: Alonso Bui MD at 10/13/2018 3:51 AM Report E-Signed By: Alonso Bui MD at 10/13/2018 4:00 AM [id number]
--- NOTE | 2018-10-13 04:06 | RADIOLOGY IMAGING REPORT ---
[place] [facility] [place] Yolanda Olivia : 1965 MR: [id number] V: [id number] EXAM DATE: ORDERING PHYSICIAN: ADAM THRASHER TECHNOLOGIST: Location: [facility] Patient: Yolanda Olivia : 1965 Visit/Account:[id number] Date of Sevice: 10/13/2018 Exam type: CHEST PA AND LAT History: dyspnea Comparison: 07/02/2018. Findings: Both lungs are well-expanded and clear. There is no focal consolidation, pleural effusion or pneumoth orax. Chronic interstitial changes are noted. Heart size is prominent. The osseous structures demonstrate postoperative changes from prior cervical fusion. Some wedging in the thoracic spine is noted. IMPRESSION: 1. No acute cardiopulmonary disease. Report Dictated By: Alonso Bui MD at 10/13/2018 4:00 AM Report E-Signed By: Alonso Bui MD at 10/13/2018 4:02 AM WSN:[id number]
[2018-10-13 04:30] VITALS: BP 112/68
[2018-10-13] MEDS ORDERED: HYDROmorphone 2 MG TAB TH 2 TAB/BOTTLE PO ONE (04:35)
== END 2018-10-13 04:46 | disposition home or self-care (01) ==
LOC: ER 03:04
DX: K43.9 Ventral hernia without obstruction or gangrene (principal); R06.00 Dyspnea, unspecified; K59.00 Constipation, unspecified; Z98.84 Bariatric surgery status
CPT/HCPCS: 36415; 71046; 74177; 82150; 83690; 85025; 96361; 96374; 96375; 99284; A9270; J2405; J3010; J7030; Q9967; 82040; 82247; 82310; 82374; 82435; 82565; 82947; 84075; 84132; 84155; 84295; 84450; 84460; 84520

== ENCOUNTER → 2018-11-05 | Outpatient (CLI) | payer MEDICARE, MEDICAID ==
[2018-04-16 08:17] VITALS: BMI 47.0
[~2018-11-05] MED LIST changes: +FLU60SYR36 IM; +[UNRECOGNIZED DRUG - CODE] PO
== END ==
LOC: LAB 13:38
PROVIDERS: ATTEND Emergency Medicine
DX: E87.6 Hypokalemia (principal)
CPT/HCPCS: 36415; 82310; 82374; 82435; 82565; 82947; 83735; 84132; 84295; 84520

== ENCOUNTER 2018-12-15 00:36 | Emergency (ER) | payer MEDICARE, MEDICAID ==
[2018-04-16 08:17] VITALS: Wt 127.0 kg
[~2018-12-15 00:36] MED LIST changes: -GABA-503 PO; +GABA-533 PO
--- NOTE | 2018-12-15 00:45 | ER Report ---
History and Physical Time Seen By MD: 00:45 HPI/ROS CHIEF COMPLAINT: Cough HISTORY OF PRESENT ILLNESS: This is a 53-year-old female. She has not been feeling well for a few days now. Started with a cough, cough is worsened. Now with pain in the back from the cough. Also with some nausea and vomiting. Diffuse muscle aches as well. No chest pain. No abdominal pain. Normal bowel and bladder function. Allergies: Coded Allergies: codeine (Verified Allergy, Severe, ANAPHYLAXIS, 12/15/18) oxycodone (Verified Allergy, Mild, AIRWAY OBSTRUCTION, 12/15/18) Home Meds Active Scripts Oseltamivir Phosphate (TAMIFLU) 75 Mg Cap, 75 MG PO BID, #10 CAP 0 Refills Prov:ALEX MAYA MD 12/15/18 Cyclobenzaprine Hcl (CYCLOBENZAPRINE HCL) 10 Mg Tablet, 10 MG PO Q8H PRN for MUS [place] SPASMS, #20 TAB 0 Refills Prov:ALEX MAYA MD 12/15/18 Potassium Chloride (KLOR-CON M20) 20 Meq Tab.er.prt, 20 MEQ PO QDAY, #30 TAB 0 Refills Prov:ALEX MAYA MD 10/11/18 Ondansetron 4 Mg Odt (ONDANSETRON 4 MG ODT) 4 Mg Tab.rapdis, 4 MG PO Q6H PRN for NAUSEA/VOMITING, #20 TAB 0 Refills Prov:ALEX MAYA MD 10/11/18 Reported Medications Mirtazapine (REMERON) 15 Mg Tab.rapdis, 15 MG PO 12/15/18 Hydroxyzine Hcl (HYDROXYZINE HCL) 25 Mg Tablet, 25 MG PO QID 11/05/18 Olanzapine (ZYPREXA) 7.5 Mg Tablet, 7.5 MG PO QDAY 11/05/18 [place] Carbonate (LITHIUM CARBONATE) 450 Mg Tabcr, 2 TAB PO QHS 10/11/18 Sucralfate (CARAFATE) 1 Gm Tablet, 1 GM PO TID 10/11/18 Pantoprazole Sodium (PANTOPRAZOLE SODIUM) 40 Mg Tablet.dr, 40 MG PO BID, TAB.SR 10/11/18 Cyclobenzaprine Hcl (CYCLOBENZAPRINE HCL) 10 Mg Tablet, 5 MG PO PRN, #9 TAB 07/02/18 Omeprazole (OMEPRAZOLE) 20 Mg Capsule.dr, 1 CAP PO QAM, CAP 07/02/18 Hydrochlorothiazide (HYDROCHLOROTHIAZIDE) 25 Mg Tablet, 1 TAB PO QAM, TAB 07/02/18 Furosemide (LASIX) 80 Mg Tablet, 1 TAB PO QAM, TAB 07/02/18 Metformin HCl (Metformin HCl ER) 500 Mg [id number], 1 TAB PO DAILY 04/02/18 Lamotrigine (LAMOTRIGINE) 200 Mg Tab.er.24, 200 MG PO HS 04/02/18 Albuterol Sulfate 90 Mcg/Act (PROAIR HFA 90 MCG/ACT) 8.5 Gm Hfa.aer.ad, 2 PUFF IH QID, INHALER 01/28/18 Simvastatin (ZOCOR) 10 Mg Tablet, 10 MG PO DAILY, TAB 01/28/18 Reviewed Nurses Notes: Yes Hx Smoking: Yes (4-6 CIGARETTES A DAY) Smoking Status: Current: Every Day Smoker Exposure to Second Hand Smoke?: Yes Hx Substance Use Disorder: No Hx Alcohol Use: No Constitutional Vital Sign - Last 24 Hours 12/15/18 12/15/18 12/15/18 12/15/18 00:43 00:43 00:51 01:00 Temp 99.0 Pulse 97 87 Resp 26 B/P (MAP) 122/70 (87) 122/70 107/63 (78) Pulse Ox 90 90 O2 Delivery Room Air 12/15/18 12/15/18 12/15/18 12/15/18 01:57 02:00 02:06 02:11 Pulse 73 72 B/P (MAP) 108/74 (85) 121/68 (85) Pulse Ox 91 94 12/15/18 12/15/18 12/15/18 12/15/18 02:26 02:30 02:41 02:56 Pulse ??? 70 69 B/P (MAP) ???/??? (1665) Pulse Ox 95 97 12/15/18 12/15/18 12/15/18 12/15/18 03:11 03:26 03:56 04:01 Pulse 68 67 70 68 Pulse Ox 94 96 93 93 12/15/18 12/15/18 12/15/18 04:16 04:21 04:23 Pulse 67 67 B/P (MAP) 110/62 (78) Pulse Ox 88 89 Intake and Output 12/14/18 12/14/18 12/15/18 15:00 23:00 07:00 Intake Total 2095 ml Balance 2095 ml Physical Exam General Appearance: The patient is alert. Acute distress from cough and some back pain. Eyes: Pupils are equal, round. No pallor, injection or icterus. ENT: Mucous membranes are moist. Normal oral mucosa. Posterior oropharynx with erythema and post nasal drainage. Normal tympanic membranes and canals. Respiratory: Lungs with rhonchi There are no retractions or accessory muscle use. Cardiovascular: Regular rate and rhythm. No murmurs, gallops or rubs. Normal capillary refill. Gastrointestinal: Abdomen is soft and non tender. Nondistended. Normal active bowel sounds. Neurological: Alert and oriented x3. Skin: Warm and dry. Musculoskeletal: Extremities are nontender. Has some tenderness in the mid back and off to the right, appears muscle spasm due to coughing. DIFFERENTIAL DIAGNOSIS: After history and physical exam, differential diagnosis was considered for cough, fevers, nausea and vomiting. Likely influenza. Medical Decision Making Data Points Result Diagram: 12/15/18 0110 12/15/18 0110 Laboratory Hematology Test 12/15/18 00:45 12/15/18 01:10 Influenza Virus Type A (PCR) Positive (NEGATIVE) Influenza Virus Type B (PCR) Negative (NEGATIVE) Red Blood Count 4.42 M/uL (4.17-5.56) Mean Corpuscular Volume 90.5 fL (80.0-96.0) Mean Corpuscular Hemoglobin 30.4 pg (26.0-33.0) Mean Corpuscular Hemoglobin Concent 33.6 g/dL (32.0-36.0) Red Cell Distribution Width 15.9 % (11.5-14.5) Mean Platelet Volume 8.2 fL (7.2-11.1) Neutrophils (%) (Auto) 56.4 % (39.4-72.5) Lymphocytes (%) (Auto) 24.5 % (17.6-49.6) Monocytes (%) (Auto) 18.1 % (4.1-12.4) Eosinophils (%) (Auto) 0.0 % (0.4-6.7) Basophils (%) (Auto) 1.0 % (0.3-1.4) Nucleated RBC Relative Count (auto) 0.0 /100WBC Neutrophils # (Auto) 3.7 K/uL (2.0-7.4) Lymphocytes # (Auto) 1.6 K/uL (1.3-3.6) Monocytes # (Auto) 1.2 K/uL (0.3-1.0) Eosinophils # (Auto) 0.0 K/uL (0.0-0.5) Basophils # (Auto) 0.1 K/uL (0.0-0.1) Nucleated RBC Absolute Count (auto) 0.00 K/uL Sodium Level 132 mmol/L (137-145) Potassium Level 2.8 mmol/L (3.5-5.0) Chloride Level 98 mmol/L (98-107) Carbon Dioxide Level 25 mmol/L (22-31) Blood Urea Nitrogen 23 mg/dl (7-18) Creatinine 1.00 mg/dl (0.52-1.04) Glomerular Filtration Rate Calc 58.0 Random Glucose 213 mg/dl (75-110) Calcium Level 8.4 mg/dl (8.4-10.2) Total Bilirubin 0.2 mg/dl (0.2-1.3) Aspartate Amino Transf (AST/SGOT) 23 U/L (0-35) Alanine Aminotransferase (ALT/SGPT) 26 U/L (0-56) Alkaline Phosphatase 80 U/L (0-126) Total Protein 6.6 g/dl (6.3-8.2) Albumin 3.7 g/dl (3.5-5.0) Chemistry Test 12/15/18 00:45 12/15/18 01:10 Influenza Virus Type A (PCR) Positive (NEGATIVE) Influenza Virus Type B (PCR) Negative (NEGATIVE) White Blood Count 6.6 k/uL (4.5-11.0) Red Blood Count 4.42 M/uL (4.17-5.56) Hemoglobin 13.4 g/dL (12.0-16.0) Hematocrit 40.0 % (34.0-47.0) Mean Corpuscular Volume 90.5 fL (80.0-96.0) Mean Corpuscular Hemoglobin 30.4 pg (26.0-33.0) Mean Corpuscular Hemoglobin Concent 33.6 g/dL (32.0-36.0) Red Cell Distribution Width 15.9 % (11.5-14.5) Platelet Count 188 K/uL (150-450) Mean Platelet Volume 8.2 fL (7.2-11.1) Neutrophils (%) (Auto) 56.4 % (39.4-72.5) Lymphocytes (%) (Auto) 24.5 % (17.6-49.6) Monocytes (%) (Auto) 18.1 % (4.1-12.4) Eosinophils (%) (Auto) 0.0 % (0.4-6.7) Basophils (%) (Auto) 1.0 % (0.3-1.4) Nucleated RBC Relative Count (auto) 0.0 /100WBC Neutrophils # (Auto) 3.7 K/uL (2.0-7.4) Lymphocytes # (Auto) 1.6 K/uL (1.3-3.6) Monocytes # (Auto) 1.2 K/uL (0.3-1.0) Eosinophils # (Auto) 0.0 K/uL (0.0-0.5) Basophils # (Auto) 0.1 K/uL (0.0-0.1) Nucleated RBC Absolute Count (auto) 0.00 K/uL Glomerular Filtration Rate Calc 58.0 Calcium Level 8.4 mg/dl (8.4-10.2) Total Bilirubin 0.2 mg/dl (0.2-1.3) Aspartate Amino Transf (AST/SGOT) 23 U/L (0-35) Alanine Aminotransferase (ALT/SGPT) 26 U/L (0-56) Alkaline Phosphatase 80 U/L (0-126) Total Protein 6.6 g/dl (6.3-8.2) Albumin 3.7 g/dl (3.5-5.0) EKG/Imaging Imaging EXAMINATION: Chest radiographs 2 views HISTORY: Cough, fever. COMPARISON: 10/13/2018. FINDINGS: PA and lateral views of the chest are submitted. Lines/tubes: None. Lungs/pleura: No focal consolidation or pleural effusion. Heart: Negative. Mediastinum: Negative. Bony structures/body wall: Fusion hardware in the lower cervical spine. IMPRESSION: No radiographic evidence of acute cardiopulmonary disease. Report Dictated By: Hyun Troncoso MD at 12/15/2018 1:46 AM ED Course/Re-evaluation Clinical Indication for ER IV: Hydration, IV Access ED Course Influenza positive. Potassium was found below so a 20 mEq potassium rider was given IV with normal saline. Trial of Norflex to help with back pain did help. We will send her home with some Flexeril. We'll start her on Tamiflu for influenza. Decision to Disposition Date: Dec 15, 2018 Decision to Disposition Time: 04:22 Depart Departure Latest Vital Signs Vital Signs Date Time Temp Pulse Resp B/P (MAP) Pulse Ox O2 Delivery O2 Flow Rate FiO2 12/15/18 04:23 110/62 (78) 12/15/18 04:21 67 89 12/15/18 00:43 99.0 26 Room Air Impression: Primary Impression: Influenza A Additional Impressions: Muscle spasm of back Hypokalemia Condition: Improved Disposition: HOME OR SELF-CARE Referrals: NICHOLE WALLER MD (PCP) New Scripts Oseltamivir Phosphate (TAMIFLU) 75 Mg Cap 75 MG PO BID, #10 CAP 0 Refills Prov: ALEX MAYA MD 12/15/18 Cyclobenzaprine Hcl (CYCLOBENZAPRINE HCL) 10 Mg Tablet 10 MG PO Q8H PRN for MUSCLE SPASMS, #20 TAB 0 Refills Prov: ALEX MAYA MD 12/15/18 Patient Instructions: Hypokalemia (ED), Influenza (ED), Muscle Spasm (ED) Additional Instructions: Take Tamiflu 75mg twice a day. For the back spasms, take Flexeril 10mg, one every 8 hours as needed for pain and spasm. You can try various cough drops, humidifiers, steamy showers to help with cough. Wear your oxygen continuously until you are feeling better. Keep taking your potassium tablets, no changes at this time. Follow-up with your regular doctor in the next 1-2 weeks for re-evaluation. Problem Qualifiers ALEX MAYA MD Dec 15, 2018 00:45
[2018-12-15] MEDS ORDERED: MIRT-17 PO (00:49)
[2018-12-15] MEDS ORDERED: NS(*) 0.9% 1000 ML BAG 1,000 ML IV ONE ×2 (00:50→01:55)
[2018-12-15] MEDS ORDERED: BENZONATATE 100 MG CAP PO ONE (01:00)
[2018-12-15] MEDS ORDERED: ONDANSETRON 4 MG/2 ML VIAL IVP ONE (01:00)
[2018-12-15] MEDS ORDERED: ORPHENADRINE 60MG/2ML INJ IVP ONE (01:00)
[2018-12-15 01:32] LABS: PLATELET COUNT, AUTOMATED 188 K/uL (150-450)
[2018-12-15] MEDS ORDERED: KCL (*) 20 MEQ/100 ML PREMIX 100 ML IV ONE (01:45)
--- NOTE | 2018-12-15 01:51 | RADIOLOGY IMAGING REPORT ---
[place] [facility] [place] NAME: Yolanda Olivia : 1965 MR: [id number] V: [id number] EXAM DATE: ORDERING PHYSICIAN: ALEX MAYA TECHNOLOGIST: Location: [facility] Patient: Yolanda Olivia : 1965 Visit/Account:[id number] Date of Sevice: 12/15/2018 EXAMINATION: Chest radiographs 2 views HISTORY: Cough, fever. COMPARISON: 10/13/2018. FINDINGS: PA and lateral views of the chest are submitted. Lines/tubes: None. Lungs/pleura: No focal consolidation or pleural effusion. Heart: Negative. Mediastinum: Negative. Bony structures/body wall: Fusion hardware in the lower cervical spine. IMPRESSION: No radiographic evidence of acute cardiopulmonary disease. Report Dictated By: Hyun Troncoso MD at 12/15/2018 1:46 AM Report E-Signed By: Hyun Troncoso MD at 12/15/2018 1:48 AM WSN:[id number]
[2018-12-15 04:23] VITALS: BP 110/62
[2018-12-15] MEDS ORDERED: OSE75 PO (04:23)
[2018-12-15] MEDS ORDERED: CYCL10TA29 PO (04:23)
[2018-12-15] MEDS ORDERED: CYCLOBENZAPRINE HCL 10 MG TH PO ONE (04:25)
== END 2018-12-15 04:30 | disposition home or self-care (01) ==
LOC: ER 00:49
DX: J11.1 Influenza due to unidentified influenza virus with other respiratory manifestations (principal); M62.830 Muscle spasm of back; E87.6 Hypokalemia
CPT/HCPCS: 71046; 85025; 87502; 96365; 96366; 96375; 99284; A9270; J2360; J2405; J3480; J7030; 82040; 82247; 82310; 82374; 82435; 82565; 82947; 84075; 84132; 84155; 84295; 84450; 84460; 84520

== ENCOUNTER → 2018-12-24 | Outpatient (CLI) | payer MEDICARE, MEDICAID ==
[2018-04-16 08:17] VITALS: BMI 47.0
[~2018-12-24] MED LIST changes: +MIRT-17 PO
== END ==
LOC: LAB 09:45
PROVIDERS: ATTEND Nurse Practitioner
DX: R53.83 Other fatigue (principal); R60.0 Localized edema
CPT/HCPCS: 36415; 83735; 84443

== ENCOUNTER → 2019-01-28 | Outpatient (CLI) | payer MEDICARE, MEDICAID ==
[2018-04-16 08:17] VITALS: BMI 47.0
== END ==
LOC: LAB 08:50
PROVIDERS: ATTEND Emergency Medicine
DX: E53.8 Deficiency of other specified B group vitamins (principal); E55.9 Vitamin D deficiency, unspecified
CPT/HCPCS: 36415; 82306; 82607

== ENCOUNTER → 2019-02-26 | Outpatient (CLI) | payer MEDICARE, MEDICAID ==
[2018-04-16 08:17] VITALS: BMI 47.0
[~2019-02-26] MED LIST changes: +ATOR20TA65 PO
== END ==
LOC: LAB 08:34
PROVIDERS: ATTEND Emergency Medicine
DX: I10 Essential (primary) hypertension (principal); R73.03 Prediabetes
CPT/HCPCS: 36415; 82310; 82374; 82435; 82565; 82947; 83036; 84132; 84295; 84520

== ENCOUNTER → 2019-03-05 | Outpatient (CLI) | payer MEDICARE, MEDICAID ==
[2018-04-16 08:17] VITALS: BMI 47.0
[2019-03-05 10:09] LABS: LDL CHOLESTEROL 84 mg/dl
== END ==
LOC: LAB 09:04
PROVIDERS: ATTEND Internal Medicine Cardiovascular Disease
DX: E78.00 Pure hypercholesterolemia, unspecified (principal); I10 Essential (primary) hypertension
CPT/HCPCS: 36415; 82040; 82247; 82310; 82374; 82435; 82465; 82565; 82947; 83718; 84075; 84132; 84155; 84295; 84450; 84460; 84478; 84520

== ENCOUNTER → 2019-03-05 | Outpatient (CLI) | payer MEDICARE, MEDICAID ==
[2018-04-16 08:17] VITALS: BMI 47.0
--- NOTE | 2019-03-06 17:21 | RADIOLOGY IMAGING REPORT ---
FACILITY: [facility] PATIENT NAME: WILFREDO IZQUIERDO : [id number] MR: [id number] V: [id number] EXAM DATE: [id number] ORDERING PHYSICIAN: NICHOLE WALLER TECHNOLOGIST: Arabella Rojo PROCEDURE:BILATERAL DIAGNOSTIC DIGITAL MAMMOGRAM WITH CAD ASSISTED INTERPRETATION & 3D TOMOSYNTHESIS REASON FOR STUDY: Screening FAMILY HISTORY OF BREAST CANCER: BREAST PROCEDURES/TREATMENTS: COMPARISON STUDIES: Prior mammogram 12/26/2017 MAMMOGRAM VIEWS OBTAINED: 2D & 3D full field CC & MLO. BREAST DENSITY: The breast tissue is predominantly fatty. MAMMOGRAM FINDINGS: There is a stable mass in the upper outer quadrant of the Right breast, middle 1/3 for depth. There is no suspicious mass, calcification, or architectural distortion. DIAGNOSTIC CATEGORY 2--BENIGN FINDING. RECOMMENDATIONS: ROUTINE MAMMOGRAM AND CLINICAL EVALUATION IN 1 YEAR. IMPRESSION: BIRADS 2: Benign finding. No mammographic evidence for malignancy. Dictated by: Dimitri Plummer M.D. on 03/05/2019 at 13:54 Transcribed by: SADE on 03/06/2019 at 10:12 Approved by: Dimitri Plummer M.D. on 03/06/2019 at 17:21 [facility]
== END ==
LOC: MAMO 01-29 00:53
PROVIDERS: ATTEND Emergency Medicine
DX: R92.2 Inconclusive mammogram (principal)
CPT/HCPCS: 77062; 77066

== ENCOUNTER → 2019-04-04 | Outpatient (CLI) | payer MEDICARE, MEDICAID ==
[2018-04-16 08:17] VITALS: BMI 47.0
[~2019-04-04] MED LIST changes: -OMEP-125 PO; +OMEP-126 PO; +ZOLP-350 PO
[2019-04-04 11:58] LABS: PLATELET COUNT, AUTOMATED 272 K/uL (150-450)
--- NOTE | 2019-04-04 13:10 | EKG ---
FACILITY: [facility] PATIENT NAME: WILFREDO IZQUIERDO : [id number] MR: [id number] V: [id number] EXAM DATE: ORDERING PHYSICIAN: CORINNE CALDWELL TECHNOLOGIST: EDYTA Keen Reason : PREOP Blood Pressure : / mmHG Vent. Rate : 075 BPM Atrial Rate : 075 BPM P-R Int : 132 ms QRS Dur : 088 ms QT Int : 406 ms P-R-T Axes : 047 018 051 degrees QTc Int : 453 ms Normal sinus rhythm Normal ECG No previous ECGs available Confirmed by TAWNY FRAUSTO ([id number]) on 04/04/2019 4:02:07 PM Referred By: CORINNE CALDWELL Confirmed By:TAWNY FRAUSTO
== END ==
LOC: LAB 11:42
PROVIDERS: ATTEND Nurse Practitioner Primary Care
DX: Z01.818 Encounter for other preprocedural examination (principal)
CPT/HCPCS: 36415; 81001; 82040; 82247; 82310; 82374; 82435; 82565; 82947; 83036; 84075; 84132; 84155; 84295; 84450; 84460; 84520; 85025

== ENCOUNTER → 2019-04-07 | Outpatient (CLI) | payer MEDICARE, MEDICAID ==
[2018-04-16 08:17] VITALS: BMI 47.0
== END ==
LOC: LAB 07:03
PROVIDERS: ATTEND Nurse Practitioner Primary Care
DX: R79.89 Other specified abnormal findings of blood chemistry (principal)
CPT/HCPCS: 36415; 82565

== ENCOUNTER 2019-05-05 21:40 | Emergency (ER) | payer MEDICAID, MEDICARE ==
[2018-04-16 08:17] VITALS: Wt 127.0 kg
--- NOTE | 2019-05-05 21:51 | ER Report ---
History and Physical Time Seen By MD: 21:43 HPI/ROS CHIEF COMPLAINT: Back pain HISTORY OF PRESENT ILLNESS: 54-year-old female with a history of chronic back pain status post multiple facet injections. Patient's been followed by Dr. Cruz. Last Sunday. She will underwent radiofrequency ablation of nerves in her spine. She felt good for 3 days post the procedure, but then began to develop severe pain on Sunday, which is continued through the weekend. She describes burning pain in her back with radiation to her legs. She's had no fever or chills. She denies dysuria. Patient's pain is 10 out of 10. Patient states she's used up all the hydrocodone that Dr. Cruz gave her. REVIEW OF SYSTEMS: Respiratory: No cough, no dyspnea. Cardiovascular: No chest pain, no palpitations. Gastrointestinal: No vomiting, no abdominal pain. Musculoskeletal: As above Allergies: Coded Allergies: codeine (Verified Allergy, Severe, ANAPHYLAXIS, 12/15/18) oxycodone (Verified Allergy, Mild, AIRWAY OBSTRUCTION, 12/15/18) Home Meds Active Scripts Prednisone (PREDNISONE) 20 Mg Tablet, 20 MG PO QDAY for reduce back inflammation for 7 Days, #5 Prov:ADAM THRASHER DO 05/05/19 Promethazine Hcl (PROMETHAZINE HCL) 25 Mg Tablet, 25 MG PO Q4H PRN for NAUSEA/VOMITING, #15 TAB Prov:ADAM THRASHER DO 05/05/19 Ondansetron 4 Mg Odt (ONDANSETRON 4 MG ODT) 4 Mg Tab.rapdis, 4 MG PO Q6H PRN for NAUSEA/VOMITING, #30 TAB Prov:ADAM THRASHER DO 05/05/19 Acetaminophen/Hydrocodone (HYDROCODON-ACETAMINOPHN 10-325) 1 Each Tab, 1-2 EACH PO Q4-6H PRN for PAIN, #12 TAB Prov:ADAM THRASHER DO 05/05/19 Potassium Chloride (KLOR-CON M20) 20 Meq Tab.er.prt, 20 MEQ PO QDAY, #90 TAB 3 Refills Prov:NICHOLE WALLER MD 03/10/19 Hydrochlorothiazide (HYDROCHLOROTHIAZIDE) 25 Mg Tablet, 1 TAB PO QAM, #90 TAB 3 Refills Prov:NICHOLE WALLER MD 5/13/19 Furosemide (LASIX) 80 Mg Tablet, 1 TAB PO QAM, #90 TAB 3 Refills Prov:NICHOLE WALLER MD 03/10/19 Metformin HCl (Metformin HCl ER) 500 Mg [id number], 1 TAB PO DAILY, #90 TAB 3 Refills Prov:NICHOLE WALLER MD 03/05/19 Atorvastatin Calcium (ATORVASTATIN CALCIUM) 20 Mg Tablet, 1 TAB PO QDAY, #90 TAB 3 Refills Prov:NICHOLE WALLER MD 02/26/19 Cyclobenzaprine Hcl (CYCLOBENZAPRINE HCL) 10 Mg Tablet, 10 MG PO Q8H PRN for MUSCLE SPASMS, #20 TAB 0 Refills Prov:ALEX MAYA MD 12/15/18 Ondansetron 4 Mg Odt (ONDANSETRON 4 MG ODT) 4 Mg Tab.rapdis, 4 MG PO Q6H PRN for NAUSEA/VOMITING, #20 TAB 0 Refills Prov:ALEX MAYA MD 10/11/18 Reported Medications Zolpidem Tartrate (AMBIEN) 10 Mg Tablet, 1 TAB PO QHS, TAB 04/04/19 Venlafaxine Hcl (EFFEXOR XR) 75 Mg Cap.er.24h, 3 CAP PO QDAY 03/10/19 Mirtazapine (REMERON) 15 Mg Tab.rapdis, 15 MG PO 12/15/18 Hydroxyzine Hcl (HYDROXYZINE HCL) 25 Mg Tablet, 25 MG PO QID 11/05/18 Sucralfate (CARAFATE) 1 Gm Tablet, 1 GM PO TID 10/11/18 Pantoprazole Sodium (PANTOPRAZOLE SODIUM) 40 Mg Tablet.dr, 40 MG PO BID, TAB.SR 10/11/18 Lamotrigine (LAMOTRIGINE) 200 Mg Tab.er.24, 200 MG PO HS 04/02/18 Albuterol Sulfate 90 Mcg/Act (PROAIR HFA 90 MCG/ACT) 8.5 Gm Hfa.aer.ad, 2 PUFF IH QID, INHALER 01/28/18 Reviewed Nurses Notes: Yes Old Medical Records Reviewed: Yes Hx Smoking: Yes (4-6 CIGARETTES A DAY) Smoking Status: Current: Every Day Smoker Exposure to Second Hand Smoke?: Yes Hx Substance Use Disorder: No Hx Alcohol Use: No Constitutional Vital Sign - Last 24 Hours 05/05/19 05/05/19 21:46 23:42 Temp 98.7 Pulse 81 76 Resp 16 16 B/P (MAP) 136/95 143/83 (103) Pulse Ox 90 90 O2 Delivery Room Air Room Air Physical Exam General Appearance: The patient is alert, has no immediate need for airway protection and no current signs of toxicity. Vital signs stable, afebrile, pulse ox normal Eyes: Pupils equal and round no injection. Respiratory: Chest is non tender, lungs are clear to auscultation. Cardiac: regular rate and rhythm Gastrointestinal: Abdomen is soft and non tender, no masses, bowel sounds normal. Musculoskeletal: Neck: Neck is supple and non tender. Back: Visualization of the back reveals 4 puncture wounds without evidence of infection redness or induration. There is no warmth or tenderness. No CVA tenderness Extremities have full range of motion and are non tender. Skin: No rashes or lesions. DIFFERENTIAL DIAGNOSIS: After history and physical exam differential diagnosis was considered for back pain including but not limited to muscular pain, herniated disc, spine fracture, adverse reaction to radiofrequency ablation, hematoma intra-abdominal causes and urinary tract infection. Medical Decision Making ED Course/Re-evaluation ED Course Patient admitted to an examination room. H&P was done. The differential diagnoses was considered. Patient with acute increase of her pain over the last 3 days. Patient is 6 days out from her radiofrequency ablation of her spine. Patient notes increased pain. But it did not start until 3 days after the pr ocedure. She has no signs of infection. The puncture wounds appear well healed. Patient's neurologic examination is nonfocal. She has no urinary tract symptoms. She's treated with Phenergan, Zofran and Dilaudid 2 mg orally. She is observed for 45 minutes. She continues to have pain. I do not think any diagnostic studies will be of benefit at this time. Patient will be treated with additional pain medicine. She is given a prescription for hydrocodone 10 mg and a prescription for Phenergan and Zofran. Patient will also be given a low-dose prednisone burst. She is advised to use the pain medicine to achieve relief and follow-up with Dr. Cruz as soon as possible. Decision to Disposition Date: May 05, 2019 Decision to Disposition Time: 23:12 Depart Departure Latest Vital Signs Vital Signs Date Time Temp Pulse Resp B/P (MAP) Pulse Ox O2 Delivery O2 Flow Rate FiO2 05/05/19 23:42 76 16 143/83 (103) 90 Room Air 05/05/19 21:46 98.7 Impression: Primary Impression: Chronic back pain Additional Impression: Exposure to radiofrequency, subsequent encounter Condition: Improved Disposition: HOME OR SELF-CARE Referrals: NICHOLE WALLER MD (PCP) New Scripts Prednisone (PREDNISONE) 20 Mg Tablet 20 MG PO QDAY for reduce back inflammation for 7 Days, #5 Prov: ANNA MARIEADAM Susan DO 05/05/19 Promethazine Hcl (PROMETHAZINE HCL) 25 Mg Tablet 25 MG PO Q4H PRN for NAUSEA/VOMITING, #15 TAB Prov: ANNA MARIEADAM DO 05/05/19 Ondansetron 4 Mg Odt (ONDANSETRON 4 MG ODT) 4 Mg Tab.rapdis 4 MG PO Q6H PRN for NAUSEA/VOMITING, #30 TAB Prov: ADAM THRASHER Susan VÁZQUEZ 05/05/19 Acetaminophen/Hydrocodone (HYDROCODON-ACETAMINOPHN 10-325) 1 Each Tab 1-2 EACH PO Q4-6H PRN for PAIN, #12 TAB Prov: ADAM THRASHER Susan VÁZQUEZ 05/05/19 Patient Instructions: Back Pain (ED) Additional Instructions: Follow-up with Dr. Cruz in 1 to 3 days Problem Qualifiers Primary Impression: Chronic back pain Back pain location: low back pain Back pain laterality: bilateral Sciatica presence: unspecified whether sciatica present Qualified Codes: M54.5 - Low back pain; G89.29 - Other chronic pain ADAM THRASHER DO May 05, 2019 21:51
[2019-05-05] MEDS ORDERED: HYDROmorphone HCL 2 MG TAB PO ONE (21:55)
[2019-05-05] MEDS ORDERED: PROMETHAZINE HCL 25 MG TAB PO ONE (21:55)
[2019-05-05] MEDS ORDERED: ONDANSETRON 4 MG ODT TABDP SL ONE (22:35)
[2019-05-05] MEDS ORDERED: predniSONE 20 MG TAB PO ONE (23:15)
[2019-05-05] MEDS ORDERED: ONDANSETRON 4 MG ODT TH SL ONE (23:15)
[2019-05-05] MEDS ORDERED: PROMETHAZINE HCL 25 MG TAB TH 2 TAB/BOTTLE PO ONE (23:15)
[2019-05-05] MEDS ORDERED: APAP/HYDROCODONE 325/10 TAB PO ONE (23:15)
[2019-05-05] MEDS ORDERED: HYDR-393 PO (23:20)
[2019-05-05] MEDS ORDERED: PROM-110 PO (23:20)
[2019-05-05] MEDS ORDERED: ONDA4TAB9 PO (23:20)
[2019-05-05] MEDS ORDERED: PRED20TA6 PO (23:21)
[2019-05-05 23:42] VITALS: BP 143/83
== END 2019-05-05 23:20 | disposition home or self-care (01) ==
LOC: ER 21:52
DX: M54.5 Low back pain (principal); G89.29 Other chronic pain
CPT/HCPCS: 99283; A9270; J7512; Q0162; Q0169; S0119

== ENCOUNTER 2019-05-20 11:25 | Emergency (ER) | payer MEDICARE ==
[2018-04-16 08:17] VITALS: Wt 127.0 kg
[~2019-05-20 11:25] MED LIST changes: +HYDR-393 PO; +PRED20TA6 PO; +PROM-110 PO
--- NOTE | 2019-05-20 11:31 | ER Report ---
History and Physical Time Seen By MD: 11:28 HPI/ROS CHIEF COMPLAINT: Chest pain HISTORY OF PRESENT ILLNESS: This is a 54-year-old female presents emergency department for chest pain per patient states that around 945 this morning she began to have some anterior chest pain that then began to radiate into her back between her shoulder blades. Patient also had some diarrhea and nausea today. The pain is reproducible. Pain is intermittent. No increased shortness of breath. No fevers or chills. However she does state that she has some warm flu shed feeling no rashes. No headaches. No other complaints. REVIEW OF SYSTEMS: Constitutional: No fever, no chills. Eyes: No discharge. ENT: No sore throat. Cardiovascular: As above. Respiratory: No cough, no shortness of breath. Gastrointestinal: No abdominal pain, no vomiting. Genitourinary: No hematuria. Musculoskeletal: No back pain. Skin: No rashes. Neurological: No headache. Allergies: Coded Allergies: codeine (Verified Allergy, Severe, ANAPHYLAXIS, 05/20/19) oxycodone (Verified Allergy, Mild, AIRWAY OBSTRUCTION, 05/20/19) Home Meds Active Scripts Lidocaine (Lidocaine) 5 % Adh..patch, 1 PATCH.24H TOP Q24H, #5 PATCH.24H 0 Refills Prov:FELICIANO DAVIS [employer] SUPERVISOR- 05/20/19 Prednisone (PREDNISONE) 20 Mg Tablet, 20 MG PO QDAY for reduce back inflammation for 7 Days, #5 Prov:ADAM THRASHER DO 05/05/19 Promethazine Hcl (PROMETHAZINE HCL) 25 Mg Tablet, 25 MG PO Q4H PRN for NAUSEA/VOMITING, #15 TAB Prov:ADAM THRASHER DO 05/05/19 Ondansetron 4 Mg Odt (ONDANSETRON 4 MG ODT) 4 Mg Tab.rapdis, 4 MG PO Q6H PRN for NAUSEA/VOMITING, #30 TAB Prov:ADAM THRASHER DO 05/05/19 Acetaminophen/Hydrocodone (HYDROCODON-ACETAMINOPHN 10-325) 1 Each Tab, 1-2 EACH PO Q4-6H PRN for PAIN, #12 TAB Prov:ADAM THRASHER DO 05/05/19 Potassium Chloride (KLOR-CON M20) 20 Meq Tab.er.prt, 20 MEQ PO QDAY, #90 TAB 3 Refills Prov:NICHOLE NEWBERRY MD 03/10/19 Hydrochlorothiazide (HYDROCHLOROTHIAZIDE) 25 Mg Tablet, 1 TAB PO QAM, #90 TAB 3 Refills Prov:NICHOLE NEWBERRY MD 03/10/19 Furosemide (LASIX) 80 Mg Tablet, 1 TAB PO QAM, #90 TAB 3 Refills Prov:NICHOLE NEWBERRY MD 03/10/19 Metformin HCl (Metformin HCl ER) 500 Mg [id number], 1 TAB PO DAILY, #90 TAB 3 Refills Prov:NICHOLE NEWBERRY MD 03/05/19 Atorvastatin Calcium (ATORVASTATIN CALCIUM) 20 Mg Tablet, 1 TAB PO QDAY, #90 TAB 3 Refills Prov:NICHOLE NEWBERRY MD 02/26/19 Cyclobenzaprine Hcl (CYCLOBENZAPRINE HCL) 10 Mg Tablet, 10 MG PO Q8H PRN for MUSCLE SPASMS, #20 TAB 0 Refills Prov:ALEX MAYA MD 12/15/18 Ondansetron 4 Mg Odt (ONDANSETRON 4 MG ODT) 4 Mg Tab.rapdis, 4 MG PO Q6H PRN for NAUSEA/VOMITING, #20 TAB 0 Refills Prov:ALEX MAYA MD 10/11/18 Reported Medications Zolpidem Tartrate (AMBIEN) 10 Mg Tablet, 1 TAB PO QHS, TAB 04/04/19 Venlafaxine Hcl (EFFEXOR XR) 75 Mg Cap.er.24h, 3 CAP PO QDAY 03/10/19 Mirtazapine (REMERON) 15 Mg Tab.rapdis, 15 MG PO 12/15/18 Hydroxyzine Hcl (HYDROXYZINE HCL) 25 Mg Tablet, 25 MG PO QID 11/05/18 Sucralfate (CARAFATE) 1 Gm Tablet, 1 GM PO TID 10/11/18 Pantoprazole Sodium (PANTOPRAZOLE SODIUM) 40 Mg Tablet.dr, 40 MG PO BID, TAB.SR 10/11/18 Lamotrigine (LAMOTRIGINE) 200 Mg Tab.er.24, 200 MG PO HS 04/02/18 Albuterol Sulfate 90 Mcg/Act (PROAIR HFA 90 MCG/ACT) 8.5 Gm Hfa.aer.ad, 2 PUFF IH QID, INHALER 01/28/18 Past Medical/Surgical History The patient has a past medical surgical history of concussions, headaches, myocardial infarction, anxiety induced chest pain, hypertension, hypercholesterolemia, obstructive sleep apnea, wears a BiPAP, asthma, pneumonia, GERD, hiatal hernia, ulcers, cholecystectomy, menopause, C2-6 fusion, degenerative disc disease, herniated disks, arthritis, "damaged teeth", hard of hearing, occasional shortness of breath, borderline diabetic, on metformin, anemia, history of blood clots, after a blood transfusion from hysterectomy, severe PTSD, anxiety, depression, femoral artery rupture repair, gastric bypass, appendectomy, cholecystectomy, splenic repair, carpal tunnel release, knee surgery, bursa decompression of the shoulder, tonsillectomy. Reviewed Nurses Notes: Yes Hx Smoking: Yes (4-6 CIGARETTES A DAY) Smoking Status: Current: Every Day Smoker Exposure to Second Hand Smoke?: Yes Hx Substance Use Disorder: No Hx Alcohol Use: No Constitutional Vital Sign - Last 24 Hours 05/20/19 05/20/19 05/20/19 05/20/19 11:25 11:29 11:31 11:40 Temp 98.2 Pulse ??? 73 74 Resp 20 16 B/P (MAP) 123/93 123/93 (103) Pulse Ox 93 94 O2 Delivery Room Air 05/20/19 05/20/19 05/20/19 05/20/19 11:55 12:00 12:07 12:10 Pulse ??? 68 Resp 19 B/P (MAP) ???/??? (1665) 111/47 (68) Pulse Ox 91 05/20/19 05/20/19 05/20/19 05/20/19 12:25 12:30 12:40 12:55 Pulse 65 67 62 Resp 13 16 16 B/P (MAP) 97/49 (65) Pulse Ox 93 90 87 05/20/19 13:00 B/P (MAP) 119/76 (90) Physical Exam General Appearance: The patient is alert, has no immediate need for airway protection and no signs of toxicity. Eyes: Pupils equal and round no pallor or injection. ENT, Mouth: Mucous membranes are moist. Respiratory: There are no retractions, lungs are clear to auscultation. Cardiovascular: Regular rate and rhythm. No murmurs, clicks or rubs. Gastrointestinal: Abdomen is soft and non tender, no masses, bowel sounds normal. Neurological: Alert and oriented 4. Moving all extremities. Following. No focal neuro deficits Skin: Warm and dry, no rashes. Musculoskeletal: Neck is supple non tender. Extremities are nontender, nonswollen and have full range of motion. DIFFERENTIAL DIAGNOSIS: After history and physical exam differential diagnosis was considered for chest pain including but not limited to myocardial ischemia, pericarditis pulmonary embolus, chest wall pain, pleural inflammation and pulmonary infectious causes. Medical Decision Making Data Points Result Diagram: 05/20/19 1134 05/20/19 1134 Laboratory Hematology Test 05/20/19 11:34 White Blood Count 8.0 k/uL (4.5-11.0) Red Blood Count 4.50 M/uL (4.17-5.56) Hemoglobin 14.2 g/dL (12.0-16.0) Hematocrit 41.8 % (34.0-47.0) Mean Corpuscular Volume 92.9 fL (80.0-96.0) Mean Corpuscular Hemoglobin 31.6 pg (26.0-33.0) Mean Corpuscular Hemoglobin Concent 34.0 g/dL (32.0-36.0) Red Cell Distribution Width 15.0 % (11.5-14.5) H Platelet Count 266 K/uL (150-450) Mean Platelet Volume 8.1 fL (7.2-11.1) Neutrophils (%) (Auto) 63.6 % (39.4-72.5) Lymphocytes (%) (Auto) 27.8 % (17.6-49.6) Monocytes (%) (Auto) 8.3 % (4.1-12.4) Eosinophils (%) (Auto) 0.0 % (0.4-6.7) L Basophils (%) (Auto) 0.3 % (0.3-1.4) Nucleated RBC Relative Count (auto) 0.0 /100WBC Neutrophils # (Auto) 5.1 K/uL (2.0-7.4) Lymphocytes # (Auto) 2.2 K/uL (1.3-3.6) Monocytes # (Auto) 0.7 K/uL (0.3-1.0) Eosinophils # (Auto) 0.0 K/uL (0.0-0.5) Basophils # (Auto) 0.0 K/uL (0.0-0.1) Nucleated RBC Absolute Count (auto) 0.00 K/uL Peripheral Blood Smear No Y/N Chemistry Test 05/20/19 11:34 05/20/19 13:36 Sodium Level 139 mmol/L (137-145) Potassium Level 3.6 mmol/L (3.5-5.0) Chloride Level 106 mmol/L (98-107) Carbon Dioxide Level 25 mmol/L (22-31) Blood Urea Nitrogen 12 mg/dl (7-18) Creatinine 0.80 mg/dl (0.52-1.04) Glomerular Filtration Rate Calc > 60.0 Random Glucose 133 mg/dl (75-110) Calcium Level 9.7 mg/dl (8.4-10.2) Total Bilirubin 0.6 mg/dl (0.2-1.3) Aspartate Amino Transf (AST/SGOT) 28 U/L (0-35) Alanine Aminotransferase (ALT/SGPT) 41 U/L (0-56) Alkaline Phosphatase 86 U/L (0-126) Total Protein 6.8 g/dl (6.3-8.2) Albumin 4.0 g/dl (3.5-5.0) Lipase 135 U/L (23-300) Troponin I < 0.012 ng/ml Coagulation Test 05/20/19 11:34 D-Dimer Quantitative (PE/DVT) 0.50 ug/ml (0-0.50) EKG/Imaging EKG Interpretation 12 lead EKG: Rhythm: Normal sinus rhythm, ventricular rate 66 bpm. [place]: normal QRS: normal ST segments: No ST depression or elevation identified. Can changes from the 04/04/2019 EKG. Imaging PATIENT NAME: Yolanda Olivia : 1965 MR: [id number] V: [id number] EXAM DATE: ORDERING PHYSICIAN: FELICIANO DAVIS TECHNOLOGIST: Location: [facility] [place] Patient: Yolanda Olivia : 1965 Visit/Account:[id number] Date of Sevice: 05/20/2019 Chest single view: HISTORY: Chest pain COMPARISON: 12/15/2018 FINDINGS: Frontal and lateral chest: Cardiomediastinal silhouette is within normal limits. There is no infiltrate or pleural effusion. No pneumothorax. Pulmonary vasculature is normal. Postsurgical changes present in the cervical spine. IMPRESSION: No evidence of acute cardiopulmonary abnormality. Report Dictated By: Mallory Davis MD at 05/20/2019 12:16 PM Report E-Signed By: Mallory Davis MD at 05/20/2019 12:17 PM WSN:[email or web address] ED Course/Re-evaluation Clinical Indication for ER IV: Hydration, IV Access ED Course The patient was admitted to room. A history and physical obtained. Differential diagnoses were considered. An IV was started. A CBC, CMP were obtained. Troponin 2 were negative. was given 324 mg aspirin. Patient was given a GI cocktail with minimal relief. She was given 12.5 mg IV Phenergan, mild relief of her symptoms, she was given a lidocaine patch to the affected area, patient states he has significant relief of her pain, EKG showing normal sinus rhythm, negative two- view chest x-ray. I did review the results with the patient, I did tell her this is likely a result of costochondritis, I did however recommend the patient follow up with her primary care provider as well as her inserting machine operator for reevaluation. Patient expressed understanding, had no other questions or concerns at this time and discharged home. She was also sent home with prescription for lidocaine patches. 05/20/2019 12:28:35 pm I did review the results with the patient. I will give her 12.5 phenergan, pain has improved but still noticible and reproducible. We will repeat troponin. Decision to Disposition Date: May 20, 2019 Decision to Disposition Time: 14:26 Depart Departure Latest Vital Signs Vital Signs Date Time Temp Pulse Resp B/P (MAP) Pulse Ox O2 Delivery O2 Flow Rate FiO2 05/20/19 13:00 119/76 (90) 05/20/19 12:55 62 16 87 05/20/19 11:29 98.2 Room Air Impression: Primary Impression: Chest pain Condition: Improved Disposition: HOME OR SELF-CARE Referrals: NICHOLE NEWBERRY MD (PCP) 2 Weeks LUCIANO ANDREWS MD New Scripts Lidocaine (Lidocaine) 5 % Adh..patch 1 PATCH.24H TOP Q24H, #5 PATCH.24H 0 Refills Prov: FELICIANO DAVIS [employer] SUPERVISOR-BC 05/20/19 Patient Instructions: Chest Wall Pain (ED) Additional Instructions: There were no concerning findings on the EKG, chest x-ray or laboratory studies today. Please keep your follow-up appointment with Dr. Newberry, on May 29. Please schedule a follow-up appointment is in a cam with Dr. Mera , your inserting machine operator. Be sure to drink plenty of water. Get plenty of rest. Remove the lidocaine patch after 12 hours, you can only use one lidocaine patch per day. Return to the emergency a primary concerns or worsening symptoms. Problem Qualifiers Primary Impression: Chest pain Chest pain type: intercostal pain Qualified Codes: R07.82 - Intercostal pain FELICIANO DAVIS [employer] SUPERVISOR-BC May 20, 2019 11:31
[2019-05-20] MEDS ORDERED: MAG HYD/AL HYD/SIMETH 30ML UDC PO ONE (11:50)
[2019-05-20] MEDS ORDERED: LIDOCAINE 2% VISC SLN 15ML UDC PO ONE (11:50)
[2019-05-20] MEDS ORDERED: ASPIRIN 81 MG CHEW PO ONE (11:50)
[2019-05-20 11:55] LABS: PLATELET COUNT, AUTOMATED 266 K/uL (150-450)
--- NOTE | 2019-05-20 12:25 | RADIOLOGY IMAGING REPORT ---
FACILITY: [facility] PATIENT NAME: Yolanda Olivia : 1965 MR: [id number] V: [id number] EXAM DATE: ORDERING PHYSICIAN: FELICIANO DAVIS TECHNOLOGIST: Location: [facility] - [place] Patient: Yolanda Olivia : 1965 Visit/Account:[id number] Date of Sevice: 05/20/2019 Chest single view: HISTORY: Chest pain COMPARISON: 12/15/2018 FINDINGS: Frontal and lateral chest: Cardiomediastinal silhouette is within normal limits. There is no infiltrate or pleural effusion. No pneumothorax. Pulmonary vasculature is normal. Postsurgical changes present in the cervical spine. IMPRESSION: No evidence of acute cardiopulmonary abnormality. Report Dictated By: Mallory Davis MD at 05/20/2019 12:16 PM Report E-Signed By: Mallory Davis MD at 05/20/2019 12:17 PM WSN:[email or web address]
[2019-05-20] MEDS ORDERED: NS(*) 0.9% 500 ML BAG 500 ML IV ONE (12:35)
[2019-05-20] MEDS ORDERED: PROMETHAZINE 25 MG/ML 1 ML AMP IVP ONE (12:35)
[2019-05-20 13:00] VITALS: BP 119/76
[2019-05-20] MEDS ORDERED: LIDOCAINE 5% PATCH TP ONE ×2 (14:16→14:45)
[2019-05-20] MEDS ORDERED: LIDO700A19 TOP (14:34)
[2019-05-20] MEDS ORDERED: LIDOCAINE 5% PATCH TP SCH (14:40)
[2019-05-20] MEDS ORDERED: PATCH REMOVAL 1 EA TP ONE (21:00)
--- NOTE | 2019-05-21 10:07 | EKG ---
[place] [facility] [place] NAME[place] WILFREDO IZQUIERDO : [id number] MR: [id number] V: [id number] EXAM DATE: ORDERING PHYSICIAN: FEILCIANO DAVIS TECHNOLOGIST: JOHNNIE Keen Reason : CP Blood Pressure : / mmHG Vent. Rate : 066 BPM Atrial Rate : 066 BPM P-R Int : 116 ms QRS Dur : 088 ms QT Int : 412 ms P-R-T Axes : 021 029 040 degrees QTc Int : 431 ms Normal sinus rhythm Normal ECG When compared with ECG of 04-APR-2019 10:55, No significant change was found Referred By: Confirmed By:
== END 2019-05-20 14:43 | disposition home or self-care (01) ==
LOC: ER 11:38
DX: R07.9 Chest pain, unspecified (principal); R19.7 Diarrhea, unspecified; R11.0 Nausea; I25.2 Old myocardial infarction; I10 Essential (primary) hypertension; E78.00 Pure hypercholesterolemia, unspecified; G47.33 Obstructive sleep apnea (adult) (pediatric); J45.909 Unspecified asthma, uncomplicated; R73.03 Prediabetes; F43.10 Post-traumatic stress disorder, unspecified; F41.9 Anxiety disorder, unspecified; F17.210 Nicotine dependence, cigarettes, uncomplicated; Z79.01 Long term (current) use of anticoagulants; Z79.899 Other long term (current) drug therapy; Z79.84 Long term (current) use of oral hypoglycemic drugs; Z86.718 Personal history of other venous thrombosis and embolism
CPT/HCPCS: 71046; 83690; 84484; 85025; 85379; 93005; 96374; 99283; A9270; J2550; J7040; 82040; 82247; 82310; 82374; 82435; 82565; 82947; 84075; 84132; 84155; 84295; 84450; 84460; 84520

== ENCOUNTER 2019-06-11 12:18 | Emergency (ER) | payer MEDICARE, MEDICAID ==
[2018-04-16 08:17] VITALS: Wt 128.4 kg
[~2019-06-11 12:18] MED LIST changes: +ALPR-429 PO; +CHOL200018 PO; +CYAN1000 IM; +FAMO40TA66 PO; +LIDO700A19 TOP
--- NOTE | 2019-06-11 12:20 | ER Report ---
History and Physical Time Seen By MD: 12:15 HPI/ROS CHIEF COMPLAINT: Left knee pain HISTORY OF PRESENT ILLNESS: Patient is a 54-year-old female here with complaint of left lateral knee pain after dancing 3 weeks prior. Patient reportedly stepped on a miguel block at that time and has been sore ever since. Patient reportedly was walking around [employer] which seemingly exacerbated her pain. Patient is able to bear weight, is neurovascularly intact in the distal extremity. Denies further injuries at this time. REVIEW OF SYSTEMS: Constitutional: No fever, no chills. Musculoskeletal: + Left knee pain with range of motion Skin: No rashes. Neurological: Neurovascular exam intact in the distal left extremity Allergies: Coded Allergies: codeine (Verified Allergy, Severe, ANAPHYLAXIS, 05/20/19) oxycodone (Verified Allergy, Mild, AIRWAY OBSTRUCTION, 05/20/19) Home Meds Active Scripts Promethazine Hcl (PROMETHAZINE HCL) 25 Mg Tablet, 25 MG PO Q4H PRN for NAUSEA/VOMITING, #15 TAB Prov:ADAM THRASHER DO 05/05/19 Ondansetron 4 Mg Odt (ONDANSETRON 4 MG ODT) 4 Mg Tab.rapdis, 4 MG PO Q6H PRN for NAUSEA/VOMITING, #30 TAB Prov:ADAM THRASHER DO 05/05/19 Potassium Chloride (KLOR-CON M20) 20 Meq Tab.er.prt, 20 MEQ PO QDAY, #90 TAB 3 Refills Prov:NICHOLE WALLER MD 03/10/19 Hydrochlorothiazide (HYDROCHLOROTHIAZIDE) 25 Mg Tablet, 1 TAB PO QAM, #90 TAB 3 Refills Prov:NICHOLE WALLER MD 03/10/19 Furosemide (LASIX) 80 Mg Tablet, 1 TAB PO QAM, #90 TAB 3 Refills Prov:NICHOLE WALLER MD 03/10/19 Metformin HCl (Metformin HCl ER) 500 Mg [id number], 1 TAB PO DAILY, #90 TAB 3 Refills Prov:NICHOLE WALLER MD 03/05/19 Atorvastatin Calcium (ATORVASTATIN CALCIUM) 20 Mg Tablet, 1 TAB PO QDAY, #90 TAB 3 Refills Prov:NICHOLE WALLER MD 02/26/19 Reported Medications Alprazolam (XANAX) 0.5 Mg Tablet, 1 TAB PO DAILY, TAB Take 1 tablet daily as needed. 06/09/19 Cholecalciferol (Vitamin D3) (VITAMIN D) 2,000 Unit Tablet, 2000 UNIT PO DAILY 05/29/19 Zolpidem Tartrate (AMBIEN) 10 Mg Tablet, 1 TAB PO QHS, TAB 04/04/19 Venlafaxine Hcl (EFFEXOR XR) 75 Mg Cap.er.24h, 3 CAP PO QDAY 03/10/19 Sucralfate (CARAFATE) 1 Gm Tablet, 1 GM PO TID 10/11/18 Pantoprazole Sodium (PANTOPRAZOLE SODIUM) 40 Mg Tablet.dr, 40 MG PO BID, TAB.SR 10/11/18 Lamotrigine (LAMOTRIGINE) 200 Mg Tab.er.24, 200 MG PO HS 04/02/18 Albuterol Sulfate 90 Mcg/Act (PROAIR HFA 90 MCG/ACT) 8.5 Gm Hfa.aer.ad, 2 PUFF IH QID, INHALER 01/28/18 Discontinued Reported Medications Mirtazapine (REMERON) 15 Mg Tab.rapdis, 15 MG PO 12/15/18 Hydroxyzine Hcl (HYDROXYZINE HCL) 25 Mg Tablet, 25 MG PO QID 11/05/18 Discontinued Scripts Famotidine (FAMOTIDINE) 40 Mg Tablet, 40 MG PO QHS, #30 TAB Prov:NICHOLE WALLER MD 05/29/19 Lidocaine (Lidocaine) 5 % Adh..patch, 1 PATCH.24H TOP Q24H, #5 PATCH.24H 0 Refills Prov:FELICIANO DAVIS INDUSTRIAL REHABILITATION CONSULTANT-BC 05/20/19 Prednisone (PREDNISONE) 20 Mg Tablet, 20 MG PO QDAY for reduce back inflammation for 7 Days, #5 Prov:ADAM THRASHER DO 05/05/19 Acetaminophen/Hydrocodone (HYDROCODON-ACETAMINOPHN 10-325) 1 Each Tab, 1-2 EACH PO Q4-6H PRN for PAIN, #12 TAB Prov:ADAM THRASHER DO 05/05/19 Cyclobenzaprine Hcl (CYCLOBENZAPRINE HCL) 10 Mg Tablet, 10 MG PO Q8H PRN for MUSCLE SPASMS, #20 TAB 0 Refills Prov:ALEX MAYA MD 12/15/18 Ondansetron 4 Mg Odt (ONDANSETRON 4 MG ODT) 4 Mg Tab.rapdis, 4 MG PO Q6H PRN for NAUSEA/VOMITING, #20 TAB 0 Refills Prov:ALEX MAYA MD 10/11/18 Hx Smoking: Yes (4-6 CIGARETTES A DAY) Smoking Status: Current: Every Day Smoker Exposure to Second Hand Smoke?: Yes Hx Substance Use Disorder: No Hx Alcohol Use: No Constitutional Vital Sign - Last 24 Hours 06/11/19 12:23 Temp 98.2 Pulse 91 Resp 24 B/P (MAP) 142/70 Pulse Ox 92 O2 Delivery Room Air Physical Exam General Appearance: The patient is alert, has no immediate need for airway protection and no signs of toxicity. No acute distress Neurological: Neurovascular exam intact in the distal extremity Skin: Warm and dry, no rashes. Musculoskeletal: Left knee tender on palpation and with range of motion, no ligamentous laxity elicited on exam DIFFERENTIAL DIAGNOSIS: After history and physical exam differential diagnosis was considered for sprain, ligament or meniscal injury, fracture Medical Decision Making EKG/Imaging Imaging FACILITY: [facility] [place] PATIENT NAME: Yolanda Olivia : 1965 MR: [id number] V: [id number] EXAM DATE: [id number] ORDERING PHYSICIAN: KAYLEY RUSSELL TECHNOLOGIST: Location: [facility] [place] Patient: Yolanda Olivia : 1965 Visit/Account:[id number] Date of Sevice: 06/11/2019 Exam type: KNEE 3 VIEW LEFT History: Left knee pain x3 weeks Comparison: None. Findings: Three views were submitted. There is mild narrowing of the medial compartment. Marginal spurring is noted along the lateral aspect of the left knee. This mild to moderate narrowing of the patellofemoral compartment. There is no evidence of acute fracture or dislocation. IMPRESSION: 1. Degenerative changes of the left knee as described. No evidence of acute fracture or dislocation Report Dictated By: Merced Sexton MD at 06/11/2019 1:01 PM Report E-Signed By: Merced Sexton MD at 06/11/2019 1:02 PM WSN:[email or web address] ED Course/Re-evaluation ED Course Patient is a 54-year-old female here with complaints of left knee pain 3 weeks with acute exacerbation. There is no ligamentous laxity on knee examination. She did have tenderness on palpation of the lateral knee. Neurovascular exam is intact in distal extremity. X-ray imaging showed no acute fracture or dislocatio n. Follow-up with primary bone and joint recommended. Curt wrap applied. Return precautions provided. Decision to Disposition Date: Jun 11, 2019 Decision to Disposition Time: 13:11 Depart Departure Latest Vital Signs Vital Signs Date Time Temp Pulse Resp B/P (MAP) Pulse Ox O2 Delivery O2 Flow Rate FiO2 06/11/19 12:23 98.2 91 24 142/70 92 Room Air Impression: Primary Impression: Knee sprain Condition: Improved Disposition: HOME OR SELF-CARE Referrals: NICHOLE WALLER MD (PCP) Patient Instructions: Knee Pain (ED) Additional Instructions: Please take NSAIDs or Tylenol as needed for pain control. Please keep your Curt wrap in place. Please follow-up with orthopedics in one week for repeat evaluation and care. Please return promptly if you develop difficulty walking, knee joint instability, worsening pain. KAYLEY RUSSELL DO Jun 11, 2019 12:20
[2019-06-11] MEDS ORDERED: KETOROLAC 60 MG/2 ML VIAL IM ONE (12:35)
--- NOTE | 2019-06-11 13:12 | RADIOLOGY IMAGING REPORT ---
FACILITY: [facility] - [place] PATIENT NAME: Yolanda Olivia : 1965 MR: [id number] V: [id number] EXAM DATE: ORDERING PHYSICIAN: KAYLEY RUSSELL TECHNOLOGIST: Location: [facility] Patient: Yolanda Olivia : 1965 Visit/Account:[id number] Date of Sevice: 06/11/2019 Exam type: KNEE 3 VIEW LEFT History: Left knee pain x3 weeks Comparison: None. Findings: Three views were submitted. There is mild narrowing of the medial compartment. Marginal spurring is noted along the lateral aspect of the left knee. This mild to moderate narrowing of the patellofemo ral compartment. There is no evidence of acute fracture or dislocation. IMPRESSION: 1. Degenerative changes of the left knee as described. No evidence of acute fracture or dislocation Report Dictated By: Merced Sexton MD at 06/11/2019 1:01 PM Report E-Signed By: Merced Sexton MD at 06/11/2019 1:02 PM WSN:[email or web address]
[2019-06-11 13:21] VITALS: BP 124/55
== END 2019-06-11 13:24 | disposition home or self-care (01) ==
LOC: ER 12:28
DX: S83.92XA Sprain of unspecified site of left knee, initial encounter (principal)
CPT/HCPCS: 73562; 96372; 99283; J1885

== ENCOUNTER 2019-06-17 19:11 | Inpatient (IN) | payer MEDICAID, MEDICARE ==
[2018-04-16 08:17] VITALS: Ht 157.5 cm; Wt 120.9 kg
[~2019-06-17] VITALS: Ht 157.5 cm; Wt 120.9 kg
--- NOTE | 2019-06-17 19:13 | ER Report ---
History and Physical Time Seen By MD: 19:08 HPI/ROS CHIEF COMPLAINT: Vomiting HISTORY OF PRESENT ILLNESS: This is a 54-year-old female presents to the emergency department for nausea, vomiting and diarrhea. She states that for the last 5 days she's had nausea vomiting and intermittent diarrhea, she is unable to keep any fluids down, she's tried sips of water, broth with little to no success, she states that today she felt somewhat lightheaded and thought she was really dehydrated decided come in for an evaluation. She denies chest pain or shortness breath. No headaches. No abdominal pain. No blood in the emesis or stooling. No fevers although she states that she wakes up in the morning warm. She was down in [place] last week and potentially exposed to sick grandchildren. REVIEW OF SYSTEMS: Constitutional: As above. Eyes: No discharge. ENT: No sore throat. Cardiovascular: No chest pain, no palpitations. Respiratory: No cough, no shortness of breath. Gastrointestinal: As above. Genitourinary: No hematuria. Musculoskeletal: No back pain. Skin: No rashes. Neurological: No headache. Allergies: Coded Allergies: codeine (Verified Allergy, Severe, ANAPHYLAXIS, 06/17/19) oxycodone (Verified Allergy, Mild, AIRWAY OBSTRUCTION, 06/17/19) Home Meds Active Scripts Promethazine Hcl (PROMETHAZINE HCL) 25 Mg Tablet, 25 MG PO Q4H PRN for NAUSEA/VOMITING, #15 TAB Prov:ADAM THRASHER DO 05/05/19 Ondansetron 4 Mg Odt (ONDANSETRON 4 MG ODT) 4 Mg Tab.rapdis, 4 MG PO Q6H PRN for NAUSEA/VOMITING, #30 TAB Prov:ADAM THRASHER DO 05/05/19 Potassium Chloride (KLOR-CON M20) 20 Meq Tab.er.prt, 20 MEQ PO QDAY, #90 TAB 3 Refills Prov:NICHOLE WALLER MD 03/10/19 Hydrochlorothiazide (HYDROCHLOROTHIAZIDE) 25 Mg Tablet, 1 TAB PO QAM, #90 TAB 3 Refills Prov:NICHOLE WALLER MD 03/10/19 Furosemide (LASIX) 80 Mg Tablet, 1 TAB PO QAM, #90 TAB 3 Refills Prov:NICHOLE WALLER MD 03/10/19 Metformin HCl (Metformin HCl ER) 500 Mg [id number], 1 TAB PO DAILY, #90 TAB 3 Refills Prov:NICHOLE WALLER MD 03/05/19 Atorvastatin Calcium (ATORVASTATIN CALCIUM) 20 Mg Tablet, 1 TAB PO QDAY, #90 TAB 3 Refills Prov:NICHOLE WALLER MD 02/26/19 Reported Medications Alprazolam (XANAX) 0.5 Mg Tablet, 1 TAB PO DAILY, TAB Take 1 tablet daily as needed. 06/09/19 Cholecalciferol (Vitamin D3) (VITAMIN D) 2,000 Unit Tablet, 2000 UNIT PO DAILY 05/29/19 Zolpidem Tartrate (AMBIEN) 10 Mg Tablet, 1 TAB PO QHS, TAB 04/04/19 Venlafaxine Hcl (EFFEXOR XR) 75 Mg Cap.er.24h, 3 CAP PO QDAY 03/10/19 Sucralfate (CARAFATE) 1 Gm Tablet, 1 GM PO TID 10/11/18 Pantoprazole Sodium (PANTOPRAZOLE SODIUM) 40 Mg Tablet.dr, 40 MG PO BID, TAB.SR 10/11/18 Lamotrigine (LAMOTRIGINE) 200 Mg Tab.er.24, 200 MG PO HS 04/02/18 Albuterol Sulfate 90 Mcg/Act (PROAIR HFA 90 MCG/ACT) 8.5 Gm Hfa.aer.ad, 2 PUFF IH QID, INHALER 01/28/18 Past Medical/Surgical History The patient has a past medical surgical history of concussions, headaches, myocardial infarction, anxiety induced chest pain, hypertension, hypercholeste rolemia, obstructive sleep apnea, wears a BiPAP, asthma, pneumonia, GERD, hiatal hernia, ulcers, cholecystectomy, menopause, C2-6 fusion, degenerative disc disease, herniated disks, arthritis, "damaged teeth", hard of hearing, occasional shortness of breath, borderline diabetic, on metformin, anemia, history of blood clots, after a blood transfusion from hysterectomy, severe PTSD, anxiety, depression, femoral artery rupture repair, gastric bypass, appendectomy, cholecystectomy, splenic repair, carpal tunnel release, knee surgery, bursa decompression of the shoulder, tonsillectomy. Reviewed Nurses Notes: Yes Hx Smoking: Yes (4-6 CIGARETTES A DAY) Smoking Status: Current: Every Day Smoker Exposure to Second Hand Smoke?: Yes Hx Substance Use Disorder: No Hx Alcohol Use: No Constitutional Vital Sign - Last 24 Hours 06/17/19 19:15 Temp 98.2 Pulse 91 Resp 14 B/P (MAP) 143/100 Pulse Ox 90 O2 Delivery Room Air Physical Exam General Appearance: The patient is alert, has no immediate need for airway protection and no signs of toxicity. Eyes: Pupils equal and round no pallor or injection. ENT, Mouth: Mucous membranes are moist. Respiratory: There are no retractions, lungs are clear to auscultation. Cardiovascular: Regular rate and rhythm. No murmurs, clicks or rubs. Gastrointestinal: Abdomen is soft round, and non tender, no masses, hyperactive bowel sounds. Neurological: Alert and oriented 4. Moving all extremities. Following all commands. No focal neuro deficits. Skin: Warm and dry, no rashes. Musculoskeletal: Neck is supple non tender. Extremities are nontender, nonswollen and have full range of motion. DIFFERENTIAL DIAGNOSIS: After history and physical exam differential diagnosis was considered for nausea and vomiting including but not limited to ga stroenteritis, gastritis, appendicitis, and medication side effect. Medical Decision Making Data Points Result Diagram: 06/17/19194206/17/191916 Laboratory Hematology Test 06/17/19 19:43 White Blood Count 10.9 k/uL (4.5-11.0) Red Blood Count 4.64 M/uL (4.17-5.56) Hemoglobin 14.9 g/dL (12.0-16.0) Hematocrit 42.7 % (34.0-47.0) Mean Corpuscular Volume 92.0 fL (80.0-96.0) Mean Corpuscular Hemoglobin 32.2 pg (26.0-33.0) Mean Corpuscular Hemoglobin Concent 35.0 g/dL (32.0-36.0) Red Cell Distribution Width 15.5 % (11.5-14.5) H Platelet Count 293 K/uL (150-450) Mean Platelet Volume 7.8 fL (7.2-11.1) Neutrophils (%) (Auto) 70.2 % (39.4-72.5) Lymphocytes (%) (Auto) 21.5 % (17.6-49.6) Monocytes (%) (Auto) 7.9 % (4.1-12.4) Eosinophils (%) (Auto) 0.0 % (0.4-6.7) L Basophils (%) (Auto) 0.4 % (0.3-1.4) Nucleated RBC Relative Count (auto) 0.0 /100WBC Neutrophils # (Auto) 7.7 K/uL (2.0-7.4) H Lymphocytes # (Auto) 2.3 K/uL (1.3-3.6) Monocytes # (Auto) 0.9 K/uL (0.3-1.0) Eosinophils # (Auto) 0.0 K/uL (0.0-0.5) Basophils # (Auto) 0.0 K/uL (0.0-0.1) Nucleated RBC Absolute Count (auto) 0.01 K/uL Chemistry Test 06/17/19 19:17 Sodium Level 134 mmol/L (137-145) Potassium Level 2.8 mmol/L (3.5-5.0) Chloride Level 89 mmol/L (98-107) Carbon Dioxide Level 30 mmol/L (22-31) Blood Urea Nitrogen 15 mg/dl (7-18) Creatinine 1.50 mg/dl (0.52-1.04) Glomerular Filtration Rate Calc 36.2 Random Glucose 135 mg/dl (75-110) Calcium Level 9.9 mg/dl (8.4-10.2) Total Bilirubin 1.5 mg/dl (0.2-1.3) Aspartate Amino Transf (AST/SGOT) 33 U/L (0-35) Alanine Aminotransferase (ALT/SGPT) 38 U/L (0-56) Alkaline Phosphatase 132 U/L (0-126) Total Protein 8.4 g/dl (6.3-8.2) Albumin 4.7 g/dl (3.5-5.0) EKG/Imaging EKG Interpretation 12 lead EKG: Time of EKG 1941. Rhythm: Normal sinus rhythm, ventricular rate 66 bpm. Madill: normal QRS: normal ST segments: No ST depression or elevation identified, flattened T-wave in V2 otherwise no other T-wave abnormalities. No significant changes from the 05/20/2019 EKG other than flattened T waves in V2 today. ED Course/Re-evaluation Clinical Indication for ER IV: Hydration, IV Access ED Course The patient was admitted to room. A history of physical were obtained. Differential diagnoses were considered. An IV was started. A CBC, CMP were obtained. A 1 L normal saline bolus 2 were given. CBC unremarkable, chemistry showing sodium 134, potassium 2.8, creatinine 1.50, this is the highest creatinine and the patient's historical data. I did review the results with the patient. I did recommend an admission to the hospital, she was given thousand milligrams IV Tylenol, 4 mg IV Zofran, 12.5 mg IV Phenergan with moderate relief of her nausea. I did speak with Dr. Martinez, the hospitalist on-call, he's accepted the patient in the hospitalist services as noted below for hypokalemia, acute renal failure and nausea, vomiting and diarrhea. The nausea vomiting diarrhea is likely gastroenteritis she did have some exposure to sick grandkids. 06/17/2019 8:37:53 pm I did speak with Dr. Martinez, the hospitalist on-call, he is accepting the patient in the hospitalist services for hypokalemia, acute renal failure and nausea vomiting diarrhea. Decision to Disposition Date: Jun 17, 2019 Decision to Disposition Time: 20:38 Depart Departure Latest Vital Signs Vital Signs Date Time Temp Pulse Resp B/P (MAP) Pulse Ox O2 Delivery O2 Flow Rate FiO2 06/17/19 19:15 98.2 91 14 143/100 90 Room Air Impression: Primary Impression: Acute renal failure Additional Impressions: Hypokalemia Nausea, vomiting and diarrhea Condition: Improved Disposition: Admitted from ER Referrals: NICHOLE WALLER MD (PCP) Problem Qualifiers Primary Impression: Acute renal failure Acute renal failure type: unspecified Qualified Codes: N17.9 - Acute kidney failure, unspecified FELICIANO DAVIS PROCESS EXCELLENCE MANAGER-BC Jun 17, 2019 19:13
[2019-06-17] MEDS ORDERED: ONDANSETRON 4 MG/2 ML VIAL ONE (19:19)
[2019-06-17] MEDS ORDERED: NS(*) 0.9% 1000 ML BAG 1,000 ML IV ONE ×2 (19:30→20:30)
[2019-06-17 19:52] LABS: PLATELET COUNT, AUTOMATED 293 K/uL (150-450)
--- NOTE | 2019-06-17 20:05 | EKG ---
FACILITY: [facility] PATIENT NAME: WILFREDO IZQUIERDO : [id number] MR: [id number] V: [id number] EXAM DATE: ORDERING PHYSICIAN: FELICIANO DAVIS TECHNOLOGIST: CUONG Keen Reason : CARDIAC Blood Pressure : / mmHG Vent. Rate : 066 BPM Atrial Rate : 066 BPM P-R Int : 138 ms QRS Dur : 102 ms QT Int : 448 ms P-R-T Axes : 042 016 035 degrees QTc Int : 469 ms Normal sinus rhythm Normal ECG When compared with ECG of 20-MAY-2019 11:23, T wave inversion now evident in Anterior leads Confirmed by TAWNY FRAUSTO ([id number]) on 06/18/2019 6:38:10 AM Referred By: Confirmed By:TAWNY FRAUSTO
[2019-06-17] MEDS: KCL (*) 20 MEQ/100 ML PREMIX 100 ML IV SCH ×2 (20:06→23:26)
[2019-06-17] MEDS ORDERED: ACETAMINOPHEN(*)1000 MG/100 ML 100 ML IVPB ONE (20:30)
[2019-06-17] MEDS ORDERED: PROMETHAZINE 25 MG/ML 1 ML AMP IVP ONE (20:35)
[2019-06-17 21:52] VITALS: BP 119/83
[2019-06-17] MEDS ORDERED: PRAZ2CAP26 PO (22:09)
[2019-06-17] MEDS ORDERED: OXYGENHOME INH (22:11)
[2019-06-17] MEDS ORDERED: INFLUENZA VIRUS VAC 0.5ML SYR IM ONLY ONE (22:20)
[2019-06-17] MEDS ORDERED: INSULIN HUM LISPRO 100 UN/ML 3 ML VIAL SUBQ PRN (22:20)
--- NOTE | 2019-06-17 22:31 | History & Physical ---
History of Present Illness Chief Complaint Nausea and vomiting History of Present Illness This patient presented to the emergency room complaining of nausea, vomiting, and diarrhea. Her symptoms started 5 days ago after exposure to sick children. Her diarrhea resolved a few days ago, but the nausea has persisted to the point where she is no longer able to hold anything down. History Problems: (1) DMII (diabetes mellitus, type 2) (2) H/O gastric bypass (3) PUD (peptic ulcer disease) (4) Hypercholesteremia Status: Chronic (5) Hypertension Status: Chronic (6) Morbid obesity Status: Chronic (7) PTSD (post-traumatic stress disorder) Status: Chronic Home Meds Active Scripts Promethazine Hcl (PROMETHAZINE HCL) 25 Mg Tablet, 25 MG PO Q4H PRN for NAUSEA/VOMITING, #15 TAB Prov:ADAM THRASHER DO 05/05/19 Ondansetron 4 Mg Odt (ONDANSETRON 4 MG ODT) 4 Mg Tab.rapdis, 4 MG PO Q6H PRN for NAUSEA/VOMITING, #30 TAB Prov:ADAM THRASHER DO 05/05/19 Potassium Chloride (KLOR-CON M20) 20 Meq Tab.er.prt, 20 MEQ PO QDAY, #90 TAB 3 Refills Prov:NICHOLE WALLER MD 03/10/19 Hydrochlorothiazide (HYDROCHLOROTHIAZIDE) 25 Mg Tablet, 1 TAB PO QAM, #90 TAB 3 Refills Prov:NICHOLE WALLER MD 03/10/19 Furosemide (LASIX) 80 Mg Tablet, 1 TAB PO QAM, #90 TAB 3 Refills Prov:NICHOLE WALLER MD 03/10/19 Metformin HCl (Metformin HCl ER) 500 Mg [id number], 1 TAB PO DAILY, #90 TAB 3 Refills Prov:NICHOLE WALLER MD 03/05/19 Atorvastatin Calcium (ATORVASTATIN CALCIUM) 20 Mg Tablet, 1 TAB PO QDAY, #90 TAB 3 Refills Prov:NICHOLE WALLER MD 02/26/19 Reported Medications Oxygen (OXYGEN) Inha, 2 L INH, L 06/17/19 Prazosin Hcl (PRAZOSIN HCL) 2 Mg Capsule, 2 MG PO HS, CAPSULE 06/17/19 Alprazolam (XANAX) 0.5 Mg Tablet, 1 TAB PO BID, TAB Take 1 tablet daily as needed. 06/09/19 Cholecalciferol (Vitamin D3) (VITAMIN D) 2,000 Unit Tablet, 2000 UNIT PO DAILY 05/29/19 Zolpidem Tartrate (AMBIEN) 10 Mg Tablet, 1 TAB PO QHS, TAB 04/04/19 Venlafaxine Hcl (EFFEXOR XR) 75 Mg Cap.er.24h, 3 CAP PO QDAY 03/10/19 Sucralfate (CARAFATE) 1 Gm Tablet, 1 GM PO TID 10/11/18 Pantoprazole Sodium (PANTOPRAZOLE SODIUM) 40 Mg Tablet.dr, 40 MG PO BID, TAB.SR 10/11/18 Lamotrigine (LAMOTRIGINE) 200 Mg Tab.er.24, 200 MG PO HS 04/02/18 Albuterol Sulfate 90 Mcg/Act (PROAIR HFA 90 MCG/ACT) 8.5 Gm Hfa.aer.ad, 2 PUFF IH QID, INHALER 01/28/18 Allergies: Coded Allergies: codeine (Verified Allergy, Severe, ANAPHYLAXIS, 06/17/19) oxycodone (Verified Allergy, Mild, AIRWAY OBSTRUCTION, 06/17/19) Patient History: Colon cancer MOTHER, , Age:68 Colon cancer MOTHER, , Age:68 FH: COPD (chronic obstructive pulmonary disease) MOTHER, , Age:68 FH: diabetes mellitus MOTHER, , Age:68 BROTHER OR SISTER FH: hypertension MOTHER, , Age:68 BROTHER OR SISTER FH: liver disease MOTHER, , Age:68 FH: lymphoma MOTHER, , Age:68 Gout Hx Smoking: Yes (4-6 CIGARETTES A DAY) Smoking Status: Current: Every Day Smoker Exposure to Second Hand Smoke?: Yes Caffeine Intake: Soda Caffeine/Cups Per Day: 2 CANS soda Hx Alcohol Use: No Hx Substance Use Disorder: No Social Drug Use: Never Review of Systems All Systems Reviewed/Normal: Yes, Except as Noted Gastrointestinal: Nausea, Vomiting, Diarrhea Exam Vital Signs Vital Signs Date Time Temp Pulse Resp B/P (MAP) Pulse Ox O2 Delivery O2 Flow Rate FiO2 06/17/19 21:52 99.0 70 119/83 (95) 94 Room Air 06/17/19 21:16 18 Neuro: No Gross deficits Eyes: PERRLA Cardiovascular: Regular Rate and Rhythm Respiratory: Clear to Auscultation GI: Other (Epigastric tenderness.) Extremities: No Edema Integumentary: No Cyanosis Medical Decision Making Data Points Result Diagram: 06/17/19194206/17/191916 Assessment and Plan Problems: (1) Acute renal failure Status: Acute Assessment & Plan: She has been started on IV fluids. A repeat chemistry is ordered for the morning. (2) Hypokalemia Assessment & Plan: She is receiving a potassium infusion. (3) Nausea, vomiting and diarrhea Status: Acute Assessment & Plan: She has been started on antiemetics and high dose Protonix. (4) Hypertension Status: Chronic Assessment & Plan: She is on chronic treatment with Lasix and hydrochlorothiazide, which have both been held. (5) PTSD (post-traumatic stress disorder) Status: Chronic Assessment & Plan: She is on chronic treatment with alprazolam, Lamictal, and venlafaxine. (6) DMII (diabetes mellitus, type 2) Assessment & Plan: She is on chronic treatment with metformin, which has been h eld. She has been placed on sliding scale level #2. Copies to: CORINNE CALDWELL DNP, LAYAWAY CLERK-BC ; Venous Thromboembolism Antithrombotics Is Pt On Any Antithrombotics?: No Exam Sepsis Risk: No Definite Risk Problem Qualifiers (1) Acute renal failure: Acute renal failure type: unspecified Qualified Codes: N17.9 - Acute kidney failure, unspecified TAWNY FRAUSTO DO Jun 17, 2019 22:31
[2019-06-17] MEDS: PANTOPRAZOLE SOD 40 MG IV VIAL IVP SCH (23:27)
[2019-06-17] MEDS: ALPRAZolam 0.5 MG TAB PO PRN (23:27)
[2019-06-17] MEDS: NS(*) 0.9% 1000 ML BAG 1,000 ML IV PRN (23:46)
[2019-06-17 23:47] VITALS: BP 114/64
[2019-06-18] MEDS: PRAZOSIN HCL 1 MG CAP PO SCH ×2 (00:37→20:59)
[2019-06-18] MEDS: ZOLPIDEM TARTRATE 10 MG TAB PO SCH ×2 (00:38→20:59)
[2019-06-18 04:59] VITALS: BP 94/54
[2019-06-18] MEDS: ALBUTEROL 8 GM INHALER INH SCH ×4 (05:41→17:15)
[2019-06-18] MEDS: NS(*) 0.9% 1000 ML BAG 1,000 ML IV PRN (05:57)
[2019-06-18 06:27] LABS: PLATELET COUNT, AUTOMATED 244 K/uL (150-450)
[2019-06-18 08:06] VITALS: BP 105/53
[2019-06-18] MEDS ORDERED: KCL (*) 20 MEQ/100 ML PREMIX 100 ML IV ONE ×2 (09:10→17:55)
[2019-06-18] MEDS: PANTOPRAZOLE SOD 40 MG IV VIAL IVP SCH ×2 (10:19→20:56)
[2019-06-18] MEDS: ONDANSETRON 4 MG/2 ML VIAL IVP PRN ×2 (10:26→17:21)
[2019-06-18] MEDS: VENLAFAXINE XR 75 MG CAPCR PO SCH (10:26)
[2019-06-18] MEDS: ALPRAZolam 0.5 MG TAB PO PRN (10:27)
[2019-06-18] MEDS: SUCRALFATE 1 GM TAB PO SCH ×3 (10:27→20:59)
--- NOTE | 2019-06-18 10:39 | Hospitalist Progress Note ---
Subjective Progress Notes Subjective She reports doing much better. No diarrhea. Nausea has resolved. She has tolerated the PO liquids thus far. Physical Exam Vital Signs Date Time Temp Pulse Resp B/P (MAP) Pulse Ox O2 Delivery O2 Flow Rate FiO2 06/18/19 09:23 90 Room Air 06/18/19 08:06 97.7 74 20 105/53 (70) 06/18/19 00:19 35.0 06/17/19 23:47 1.0 Intake and Output 06/18/19 07:04 Intake Total 4090 ml Output Total 275 ml Balance 3815 ml Intake Oral 810 ml IV Total 3280 ml Output Urine Total 275 ml # Voids 3 General Appearance: Alert, Awake Cardiovascular: Regular Rate and Rhythm Respiratory: Clear to Auscultation GI: Soft and Non-Tender Extremities: Warm, Perfused Result Diagram: 06/18/19 0534 06/18/19 0534 Assessment and Plan Problems: (1) Acute renal failure Status: Acute Assessment & Plan: Due to dehydration secondary to N/V/D and decreased intake. Improved on IV fluids. Will continue with gentle fluids. Watch labs. (2) Hypokalemia Assessment & Plan: Due to decreased intake, vomiting/diarrhea, diuretics. Still low. Continue IV supplementation and monitor labs. (3) Nausea, vomiting and diarrhea Status: Acute Assessment & Plan: Improved. She has been on antiemetics and Protonix. (4) Hypertension Status: Chronic Assessment & Plan: She is on chronic treatment with Lasix and hydrochlorothiazide, which have both been held. (5) PTSD (post-traumatic stress disorder) Status: Chronic Assessment & Plan: She is on chronic treatment with alprazolam, Lamictal, and venlafaxine. (6) DMII (diabetes mellitus, type 2) Assessment & Plan: She is on chronic treatment with metformin, which has been held. She is on sliding scale level #2. Exam Sepsis Risk: No Definite Risk Problem Qualifiers (1) Acute renal failure: Acute renal failure type: unspecified Qualified Codes: N17.9 - Acute kidney failure, unspecified SUZANNA ALLEN MD Jun 18, 2019 10:39
[2019-06-18] MEDS: KCL/NS* 20 MEQ/1000 ML PREMIX 1,000 ML IV SCH ×2 (10:42→21:06)
--- NOTE | 2019-06-18 10:45 | Medical Nutrition Therapy ---
Nutrition Anthropometrics Height (Inches): 62.00 Height (Calculated Centimeters: 157.667247 Weight (Pounds): 266 Weight (Calculated Kilograms): 120.882 BMI: 48.7 Kirk Nutrition Score: Adequate Kirk Nutrition Risk Score: 18 Dietary Referral Nutrition Risk Factors: Special Diet Nutrition Risk Comment: [place] foods Physical Findings Physical Appearance: Morbidly Obese 40+ Skin Appearance Skin Appearance: Edema Edema Location Modifier: Edema Location: Type of Edema: Degree of Edema: Gastrointestinal Symptoms GI Symtoms: Nausea, Change in Bowel Pattern Tube Present: Bowel Sounds: Recent Bowel Pattern: Stool Characteristics: Nutritional Diagnosis Nutritional Risk Acuity 2: V/D > 3 Days Nutritional Risk Acuity 3: Morbid Obesity Past Medical History: Hypoxia, influenza B, obstructive sleep apnea, morbid obesity , T2DM Nutritional Acuity: 2-Moderate Nutrition Diagnosis: Over-weight/Obesity Nutrition Etiology: Excesssive Nutr. Intake Nutrition Problem/Etiology/Sym: AEB BMI 48.7 Adjusted Energy Requirement Re: 2400 (20kcal/kg) Protein Requirement: 96 (.8 gm/kg) Fluid Requirement: 2400 (.8 gm/kg) Diet Type: Diabetic Nutrition Intervention: Cont diet as ordered, Encourage intake Nutrition Monitoring & Eval Nutrition Goals: Eat 75-100% Meal RD Patient Assessment Time: [address] Assessment Type: RD Assessment Patient Nutrition Acuity: 2-Moderate Follow Up Date: Jun 23, 2019 Nutritional Comment: 06/18 Pt admitted for ARF with 5 days N/V.D. BUN now WNR at 13, creatinine WNR at 1. Alb 3.6, k+ 2.9. Pt is recieving K+ supplment. Pt on diabetic diet. No intake reported. Pt is recieving insulin. BG raning 107-135. Will cont to monitor and encourage intake. RAYMUNDO CAROLINA Jun 18, 2019 10:45
[2019-06-18 12:16] VITALS: BP 121/68
[2019-06-18] MEDS ORDERED: SUCR1ORA13 PO (14:02)
[2019-06-18 14:13] VITALS: BP 125/75
[2019-06-18] MEDS: LOPERAMIDE HCL 2 MG CAP PO PRN (15:23)
[2019-06-18 19:41] VITALS: BP 114/59
[2019-06-18] MEDS ORDERED: ZOLPIDEM TARTRATE 10 MG TAB PO SCH (21:00)
[2019-06-18] MEDS ORDERED: lamoTRIgine 100 MG TAB PO SCH (21:00)
[2019-06-18] MEDS: PROMETHAZINE 25 MG/ML 1 ML AMP IVP PRN (21:03)
[2019-06-18 23:47] VITALS: BP 119/74
[2019-06-19] MEDS: ONDANSETRON 4 MG/2 ML VIAL IVP PRN ×2 (00:26→08:21)
[2019-06-19 03:03] VITALS: BP 115/56
[2019-06-19] MEDS: LOPERAMIDE HCL 2 MG CAP PO PRN (03:06)
[2019-06-19] MEDS: KCL/NS* 20 MEQ/1000 ML PREMIX 1,000 ML IV SCH (04:42)
[2019-06-19] MEDS: ALBUTEROL 8 GM INHALER INH SCH ×3 (05:32→13:08)
[2019-06-19 06:00] LABS: PLATELET COUNT, AUTOMATED 233 K/uL (150-450)
[2019-06-19 06:56] VITALS: BP 110/81
[2019-06-19] MEDS: ALPRAZolam 0.5 MG TAB PO PRN (09:30)
[2019-06-19] MEDS: VENLAFAXINE XR 75 MG CAPCR PO SCH (09:30)
[2019-06-19] MEDS: SUCRALFATE 1 GM TAB PO SCH ×2 (09:30→14:00)
[2019-06-19] MEDS: PANTOPRAZOLE SOD 40 MG IV VIAL IVP SCH (09:31)
[2019-06-19] MEDS: KCL (*) 20 MEQ/100 ML PREMIX 100 ML IV SCH ×2 (11:00→13:59)
--- NOTE | 2019-06-19 11:06 | Hospitalist Depart ---
Discharge Summary Reason for Hosp/Final Diag: (1) Acute renal failure Status: Acute Hospital Course & Plan: Due to dehydration secondary to N/V/D and decreased intake. Improved on IV fluids. She is now tolerating PO fluids well. (2) Hypokalemia Hospital Course & Plan: Due to decreased intake, vomiting/diarrhea, diuretics. Potassium is up to 3.1. Will give more IV Potassium today and continue to hold her home Lasix and HCTZ with a plan to discharge and follow up with her PCP for further management. (3) Nausea, vomiting and diarrhea Status: Acute Hospital Course & Plan: Improved. She will continue on her home antiemetics and Protonix. (4) Hypertension Status: Chronic Hospital Course & Plan: She is on chronic treatment with Lasix and h ydrochlorothiazide, which have both been held as discussed above. (5) PTSD (post-traumatic stress disorder) Status: Chronic Hospital Course & Plan: She is on chronic treatment with alprazolam, Lamictal, and venlafaxine. (6) DMII (diabetes mellitus, type 2) Hospital Course & Plan: She is on chronic treatment with metformin, which will resume on discharge home. Departure Weight (Pounds): 266 Weight (Ounces): 8.0 Result Diagram: 06/19/1954406/19/19544 Condition: Improved Discharge: Home, Self Care Discharge Instructions Home Meds Active Scripts Promethazine Hcl (PROMETHAZINE HCL) 25 Mg Tablet, 25 MG PO Q4H PRN for NAUSEA/VOMITING, #15 TAB Prov:ADAM THRASHER DO 05/05/19 Ondansetron 4 Mg Odt (ONDANSETRON 4 MG ODT) 4 Mg Tab.rapdis, 4 MG PO Q6H PRN for NAUSEA/VOMITING, #30 TAB Prov:ADAM THRASHER DO 05/05/19 Potassium Chloride (KLOR-CON M20) 20 Meq Tab.er.prt, 20 MEQ PO QDAY, #90 TAB 3 Refills Prov:NICHOLE WALLER MD 03/10/19 Hydrochlorothiazide (HYDROCHLOROTHIAZIDE) 25 Mg Tablet, 1 TAB PO QAM, #90 TAB 3 Refills Prov:NICHOLE WALLER MD 03/10/19 Furosemide (LASIX) 80 Mg Tablet, 1 TAB PO QAM, #90 TAB 3 Refills Prov:NICHOLE WALLER MD 03/10/19 Metformin HCl (Metformin HCl ER) 500 Mg [id number], 1 TAB PO DAILY, #90 TAB 3 Refills Prov:NICHOLE WALLER MD 03/05/19 Atorvastatin Calcium (ATORVASTATIN CALCIUM) 20 Mg Tablet, 1 TAB PO QDAY, #90 TAB 3 Refills Prov:NICHOLE WALLER MD 02/26/19 Reported Medications Sucralfate (SUCRALFATE) 1 Gm/10 Ml Oral.susp, 1 GM PO TIDAC 06/18/19 Oxygen (OXYGEN) Inha, 2 L INH, L 06/17/19 Prazosin Hcl (PRAZOSIN HCL) 2 Mg Capsule, 2 MG PO HS, CAPSULE 06/17/19 Alprazolam (XANAX) 0.5 Mg Tablet, 1 TAB PO BID, TAB Take 1 tablet daily as needed. 06/09/19 Cholecalciferol (Vitamin D3) (VITAMIN D) 2,000 Unit Tablet, 2000 UNIT PO DAILY 05/29/19 Zolpidem Tartrate (AMBIEN) 10 Mg Tablet, 1 TAB PO QHS, TAB 04/04/19 Venlafaxine Hcl (EFFEXOR XR) 75 Mg Cap.er.24h, 3 CAP PO QDAY 03/10/19 Pantoprazole Sodium (PANTOPRAZOLE SODIUM) 40 Mg Tablet.dr, 40 MG PO BID, TAB.SR 10/11/18 Lamotrigine (LAMOTRIGINE) 200 Mg Tab.er.24, 200 MG PO HS 04/02/18 Albuterol Sulfate 90 Mcg/Act (PROAIR HFA 90 MCG/ACT) 8.5 Gm Hfa.aer.ad, 2 PUFF IH QID, INHALER 01/28/18 Discontinued Reported Medications Sucralfate (CARAFATE) 1 Gm Tablet, 1 GM PO TID 10/11/18 Diet: Diabetic Activity: As Tolerated Special Instructions: Follow up within 1 week with your PCP for continued management of you chronic conditions and review of your hospitalization. Do not take any diuretics untill you have followed up with your PCP. Drink plenty of fluids. Slowly return back to your ususal diabetic diet as tolerated. If symptoms persist or worsen, follow up with your PCP or return to the ER for evaluation. Copies to: NICHOLE WALLER MD ; Venous Thromboembolism Antithrombotics Is Pt On Any Antithrombotics?: No Problem Qualifiers (1) Acute renal failure: Acute renal failure type: unspecified Qualified Codes: N17.9 - Acute kidney failure, unspecified ZAY PATEL Jun 19, 2019 11:06
[2019-06-19 11:07] VITALS: BP 143/70
[2019-06-19] MEDS ORDERED: NS(*) 0.9% 250 ML BAG 250 ML ONE (11:28)
[2019-06-19] MEDS: PROMETHAZINE 25 MG/ML 1 ML AMP IVP PRN (14:07)
[2019-06-19 16:09] VITALS: BP 115/87
[2019-06-20] MEDS ORDERED: KCL/NS* 20 MEQ/1000 ML PREMIX 1,000 ML IV SCH (09:26)
== END 2019-06-19 17:18 | disposition home or self-care (01) | DRG 683 ==
LOC: ER 19:47 → MED 21:37
PROVIDERS: ADMIT Family Medicine; ATTEND Family Medicine
PROC: 5A09357 Assistance with Respiratory Ventilation, Less than 24 Consecutive Hours, Continuous Positive Airway Pressure (ICD-10-PCS; principal; 2019-06-17)
DX: N17.9 Acute kidney failure, unspecified (principal); Z68.41 Body mass index [BMI] 40.0-44.9, adult; E87.6 Hypokalemia; I10 Essential (primary) hypertension; E11.9 Type 2 diabetes mellitus without complications; E86.0 Dehydration; G47.33 Obstructive sleep apnea (adult) (pediatric); K21.9 Gastro-esophageal reflux disease without esophagitis; F41.8 Other specified anxiety disorders; F17.210 Nicotine dependence, cigarettes, uncomplicated; F43.12 Post-traumatic stress disorder, chronic; K27.7 Chronic peptic ulcer, site unspecified, without hemorrhage or perforation; E66.9 Obesity, unspecified; Z79.84 Long term (current) use of oral hypoglycemic drugs; Z88.5 Allergy status to narcotic agent; I25.2 Old myocardial infarction; Z99.81 Dependence on supplemental oxygen; Z90.49 Acquired absence of other specified parts of digestive tract; Z98.1 Arthrodesis status; Z86.718 Personal history of other venous thrombosis and embolism; Z90.710 Acquired absence of both cervix and uterus; Z98.84 Bariatric surgery status
CPT/HCPCS: 36415; 36416; 81001; 82040; 82247; 82310; 82374; 82435; 82565; 82947; 82948; 83735; 84075; 84132; 84155; 84295; 84450; 84460; 84520; 85025; 93005; 94640; 94660; 96361; 96374; 96375; 99285; C9113; J0131; J2405; J2550; J3480; J3490; J7030